=== PATIENT | male | born 1940 | race Caucasian/White ===

== ENCOUNTER 2023-11-16 10:13 | Outpatient (OUT) | payer MEDICARE, SELFPAY ==
[2023-11-16 10:51] LABS: Basophils Absolute Auto 0.1 10^3/uL (0.0-0.1); Basophils Percent Auto 0.9 % (0.2-2.0); Eosinophils Absolute Auto 0.2 10^3/uL (0.0-0.7); Eosinophils Percent Auto 3.1 % (0.9-7.0); Hematocrit 51.7 % (42.0-54.0); Hemoglobin 16.3 g/dL (14.0-18.0); Immature Granulocytes Abs Auto 0.01 10^3/uL (0.00-0.03); Immature Granulocytes Pct Auto 0.1 % (0.0-0.5); Lymphocytes Absolute Auto 1.2 10^3/uL (1.2-3.8); Lymphocytes Percent Auto 17.6 % (20.5-60.0); Mean Corpuscular HGB Conc 31.5 g/dL (29.9-35.2); Mean Corpuscular Hemoglobin 29.1 pg (25.9-34.0); Mean Corpuscular Volume 92.2 fL (80.0-94.0); Mean Platelet Volume 10.3 fL (9.5-13.5); Monocytes Absolute Auto 0.7 10^3/uL (0.3-0.8); Monocytes Percent Auto 9.7 % (1.7-12.0); Neutrophils Absolute Auto 4.6 10^3/uL (1.4-6.5); Neutrophils Percent Auto 68.6 % (43.0-75.0); Platelet Count 191 10^3/uL (150-450); Red Blood Count 5.61 10^6/uL (4.70-6.10); Red Cell Distribution Width 13.2 % (11.0-15.0); White Blood Count 6.7 10^3/uL (4.0-11.0)
[2023-11-16 11:13] LABS: Estimated Average Glucose 166 mg/dL; Glycohemoglobin A1C 7.4 % (4.5-6.2)
[2023-11-16 11:53] LABS: Alanine Aminotransferase 21 U/L (16-63); Albumin Globulin Ratio 0.8; Albumin Level 3.3 g/dL (3.4-5.0); Alkaline Phosphatase 73 U/L (46-116); Anion Gap 12.1; Aspartate Amino Transferase 17 U/L (15-37); BUN Creatinine Ratio 17.3; Bilirubin Direct 0.2 mg/dL (0.0-0.2); Bilirubin Total 1.1 mg/dL (0.2-1.0); Calcium 9.8 mg/dL (8.5-10.1); Carbon Dioxide 26.8 mmol/L (21.0-32.0); Chloride 105 mmol/L (98-107); Chol HDL Ratio 2.7; Cholesterol 128 mg/dL (<=200); Estimated GFR (African America >60 (>=60); Estimated GFR (Non-African Ame >60 (>=60); Globulin 4.1 g/dL; Glucose 162 mg/dL (74-106); HDL Cholesterol 48 mg/dL (40-60); Potassium 4.9 mmol/L (3.5-5.1); Sodium 139 mmol/L (136-145); Total Protein 7.4 g/dL (6.4-8.2); Triglycerides 115 mg/dL (<=150)
[2023-11-16 12:14] LABS: Prostate Specific Antigen Scrn 2.35 ng/mL (<=4.00)
== END 2023-11-16 10:14 | disposition home or self-care (01) ==
LOC: LAB 10:21
DX: E11.21 Type 2 diabetes mellitus with diabetic nephropathy (principal); I48.91 Unspecified atrial fibrillation; N40.0 Benign prostatic hyperplasia without lower urinary tract symptoms; R60.9 Edema, unspecified
CPT/HCPCS: 36415; 80048; 80061; 80076; 83036; 85025; G0103

== ENCOUNTER 2024-10-31 13:20 | Outpatient (OUT) | payer MEDICARE, OTHER, SELFPAY ==
--- OUTSIDE RECORDS SUMMARY | 2024-10-31 13:46 | XMS_ITS | CCD ---
Author Organization [facility] Care Team Providers Care Antisqueak Filler Name Role Phone Unavailable Primary Care Provider David holland REQUEST, NONE LISTED Admitting Unavaila ble REQUEST, NONE LISTED Attending Unavaila ble REQUEST, NONE LISTED Consulting Unavaila ble REQUEST, NONE LISTED Admitting Unavaila ble REQUEST, NONE LISTED Attending Unavaila ble CASTRO CASTRO Consulting Unavailable GLORIA, CASTRO Consulting Unavailable CASTRO CASTRO Admitting Unavailable CASTRO CASTRO Attending Unavailable Unavailable Primary Care Provider Griffin Del Real MD Primary Care Provider SEDRICK REYES Attending Unavailable GRIFFIN MOON Primary Care Unavailable SEDRICK REYES Attending Unavailable Medications Current Medications Medication Drug Class(es) Dates Sig (Normalized) Sig (Original) amLODIPine 5 mg / benazepril hydrochloride 10 mg oral capsule (6 sources) Dihydropyridine Calcium Channel Anupam, Angiotensin Converting Enzyme Inhibitor take 1 capsule by mouth once daily amLODIPine-benazepr il (LOTREL) 5-10 mg per capsule Take 1 capsule by mouth 1 (one) time each day. Active atorvastatin 40 mg oral tablet (6 sources) HMG-CoA Reductase Inhibitor take 1 tablet by mouth once daily atorvastatin (LIPITOR) 40 mg tablet Take 1 tablet (40 mg total) by mouth 1 (one) time each day. Active cholecalciferol 0.05 mg oral capsule (6 sources) Vitamin D take 1 capsule by mouth once daily cholecalciferol (VITAMIN D-3) 50 mcg (2,000 unit) capsule Take 1 capsule (2,000 Units total) by mouth 1 (one) time each day. Active metFORMIN hydrochloride 500 mg / SITagliptin 50 mg oral tablet (6 sources) Biguanide, Dipeptidyl Peptidase 4 Inhibitor take 1 tablet by mouth twice daily sitagliptin-metform in (JANUMET) 50-500 mg per tablet Take 1 tablet by mouth 2 (two) times a day. Active 24 hr metoprolol succinate 50 mg extended release oral tablet (7 sources) beta-Adrenergic Anupam Start: 08-28-2022 End: 03-17-2025 take 1 tablet by mouth once daily metoprolol succinate (TOPROL-XL) 50 mg 24 hr tablet Indications: PAC (premature atrial contraction) Take 1 tablet (50 mg total) by mouth 1 (one) time each day. Do not crush or chew. 90 each 3 03/17/2024 03/17/2025 Active Start: 10-01-2021 End: 06-14-2022 take 1 tablet by mouth once daily metoprolol succinate (TOPROL-XL) 50 mg 24 hr tablet Indications: PAC (premature atrial contraction) Take 1 tablet (50 mg total) by mouth 1 (one) time each day. Do not crush or chew. 90 each 2 03/16/2022 06/14/2022 Active multivitamin with minerals (Centrum Silver) tablet (6 sources) take 1 tablet by geo th once daily multivitamin with minerals (Centrum Silver) tablet Take 1 tablet by mouth 1 (one) time each day. Active take 1 tablet by mouth once meera y multivitamin with minerals (Centrum Silver) tablet Take 1 tablet by mouth 1 (one) time each day. 0 Active Completed/Discontinued Medications Medication Drug Class(es) Dates Sig (Normalized) Sig (Original) acetaminophen 325 mg oral tablet (6 sources) End: 03-17-2024 take 2 tablets by mouth every six hours as needed acetaminophen (TYLENOL) 325 mg tablet Take 2 tablets every 6 hours by oral route as needed. 03/17/2024 Discontinued (Duplicate order) dapagliflozin 5 mg oral tablet (2 sources) Sodium-Glucose Cotransporter 2 Inhibitor Start: 01-19-2023 End: 03-17-2024 take 1 tablet by mouth once daily Farxiga 5 mg tablet Take 1 tablet (5 mg total) by mouth 1 (one) time each day. 01/19/2023 03/17/2024 Discontinued (Duplicate order) fluticasone propionate 0.5 mg/ml topical cream (6 sources) Corticosteroid End: 03-17-2024 fluticasone propionate (CUTIVATE) 0.05 % cream 03/17/2024 Discontinued (Duplicate order) Problems Active Problems Problem Classification Problem Date Documented Date Episodic/Chronic Cancer of colon (2 sources) Malignant tumor of ascending colon; Translations: [Malignant neoplasm of ascending colon] Onset: 08-26-2022 08-26-2022 Chronic Cardiac dysrhythmias (9 sources) Paroxysmal atrial fibrillation; Translations: [Paroxysmal atrial fibrillation] Onset: 03-16-2022 Chronic Conduction disorders (11 sources) Right bundle branch block; Translations: [Unspecified right bundle-branch block] Onset: 08-21-2021 Chronic Disorders of lipid metabolism (11 sources) Mixed hyperlipidemia; Translations: [Mixed hyperlipidemia] Onset: 06-09-2021 Chronic Essential hypertension (11 sources) Essential hypertension; Translations: [Essential (primary) hypertension] Onset: 06-09-2021 Chronic Immunizations and screening for infectious disease (4 sources) Encounter for immunization; Translations: [ENCOUNTER FOR IMMUNIZATION] Onset: 07-29-2021 Episodic Osteoarthritis (3 sources) Osteoarthritis of knee; Translations: [Unilateral primary osteoarthritis, unspecified knee] Onset: 12-24-2017 03-10-2022 Chronic Residual codes; unclassified (10 sources) Obstructive sleep apnea of adult; Translations: [Obstructive sleep apnea (adult) (pediatric)] Onset: 06-09-2021 Chronic Residual codes; unclassified (1 source) Obstructive sleep apnea (adult) (pediatric); Translations: [Obstructive sleep apnea (adult) (pediatric)] Onset: 08-21-2021 Chronic Spondylosis; intervertebral disc disorders; other back problems (6 sources) Cervical spondylosis without myelopathy; Translations: [Spondylosis without myelopathy or radiculopathy, cervical region] Onset: 03-16-2017 03-10-2022 Chronic Past or Other Problems Problem Classification Problem Date Documented Da te Episodic/Chronic Malaise and fatigue (2 sources) Fatigue; Translations: [Other fatigue] Onset: 08-26-2022 08-26-2022 Episodic Other bone disease and musculoskeletal deformities (3 sources) Somatic dysfunction of upper limb; Translations: [Segmental and somatic dysfunction of upper extremity] Onset: 04-06-2018 03-10-2022 Episodic Other bone disease and musculoskeletal deformities (3 sources) Somatic dysfunction of thoracic region; Translations: [Segmental and somatic dysfunction of thoracic region] Onset: 07-21-2018 03-10-2022 Episodic Other connective tissue disease (3 sources) Biceps tendinitis; Translations: [Bicipital tendinitis, unspecified shoulder] Onset: 04-06-2018 03-10-2022 Episodic Other connective tissue disease (1 source) Muscle pain; Translations: [Myalgia, unspecified site] Onset: 08-27-2018 08-06-2023 Episodic Other lower respiratory disease (6 sources) Paralysis of diaphragm ; Translations: [Disorders of diaphragm] Onset: 06-09-2021 06-09-2021 Episodic Other nervous system disorders (3 sources) Antalgic gait; Translations: [Other abnormalities of gait and mobility] Onset: 03-16-2017 03-10-2022 Episodic Other non-traumatic joint disorders (2 sources) Pain of right shoulder joint; Translations: [Pain in right shoulder] Onset: 10-04-2018 03-10-2022 Episodic Other non-traumatic joint disorders (1 source) Shoulder joint pain; Translations: [Pain in unspecified shoulder] Onset: 10-04-2018 08-06-2023 Episodic Other skin disorders (1 source) Callosity; Translations: [Corns and callosities] Onset: 08-17-2023 08-17-2023 Episodic Spondylosis; intervertebral disc disorders; other back problems (5 sources) Spinal stenosis of lumbar region; Translations: [Spinal stenosis, lumbar region without neurogenic claudication] Onset: 04-26-2017 03-10-2022 Episodic Results Test Name Value Interpretation Reference Range [facility] ECG 12 lead ([facility])on 02-19 Sinus Rhythm -Right bundle branch block. ABNORMAL [facility] ECG 12-LEAD ([facility])on 02-19 ECG 12-LEAD ([facility]) Sinus Rhythm -Right bundle branch block. ABNORMAL Normal [facility] ECG 12-LEAD ([facility])on 07-22 ECG 12-LEAD ([facility]) Sinus Bradycardia -occasional PAC -Right bundle branch block. ABNORMAL Normal [facility] ECG 12 lead ([facility])on Sinus bradycardia -Right bundle branch block. ABNORMAL [facility] ECG 12 lead ([facility])on 02-19 [facility] Sinus Rhythm -Right bundle branch block. ABNORMAL [facility] ECG 12 lead ([facility])on Sinus rhythm with frequent PACs -Right bundle branch block. ABNORMAL Expert Test Result Ejection Fractio non 10-30-2019 Test Result Ejection Fraction 56 Normal [facility] Vital Signs Date Time Vital Sign Value Performing Clinician Palmer peralta 03-17-2024 13:04-0400 Body mass index (BMI) [Ratio] 33.93 kg/m2 Sedrick Reyes MD Work Phone: [facility] 03-17-2024 13:04-0400 Body temperature 97.5 [degF] Sedrick Reyes MD Work Phone: [facility] 03-17-2024 13:04-0400 Body weight 110.36 kg Sedrick Reyes MD Work Phone: [facility] 03-17-2024 13:04-0400 Diastolic blood pressure 73 mm[Hg] Sedrick Reyes MD Work Phone: [facility] 03-17-2024 13:04-0400 Heart rate 76 /min Sedrick Reyes MD Work Phone: [facility] 03-17-2024 13:04-0400 Systolic blood pressure 137 mm[Hg] Sedrick Reyes MD Work Phone: [facility] 01-25-2023 14:54-0400 Body height 180.3 cm Sedrick Reyes MD Work Phone: [facility] 01-25-2023 14:54-0400 Body mass index (BMI) [Ratio] 32.75 kg/m2 Sedrick Reyes MD Work Phone: [facility] 01-25-2023 14:54-0400 Body temperature 97.39 [degF] Sedrick Reyes MD Work Phone: [facility] 01-25-2023 14:54-0400 Body weight 106.5 kg Sedrick Reyes MD Work Phone: [facility] 01-25-2023 14:54-0400 Diastolic blood pressure 53 mm[Hg] Sedrick Reyes MD Work Phone: [facility] 01-25-2023 14:54-0400 Heart rate 55 /min Sedrick Reyes MD Work Phone: [facility] 01-25-2023 14:54-0400 Systolic blood pressure 114 mm[Hg] Sedrick Reyes MD Work Phone: [facility] 03-16-2022 15:11-0400 Body height 177.8 cm Sedrick Reyes MD Work Phone: [facility] 03-16-2022 15:11-0400 Body mass index (BMI) [Ratio] 36.79 kg/m2 Sedrick Reyes MD Work Phone: [facility] 03-16-2022 15:11-0400 Body weight 116.3 kg Sedrick Reyes MD Work Phone: [facility] 03-16-2022 15:11-0400 Diastolic blood pressure 69 mm[Hg] Sedrick Reyes MD Work Phone: [facility] 03-16-2022 15:11-0400 Heart rate 62 /min Sedrick Reyes MD Work Phone: [facility] 03-16-2022 15:11-0400 Systolic blood pressure 131 mm[Hg] Sedrick Reyes MD Work Phone: [facility] 08-21-2021 13:37-0500 Body height 180.3 cm Sedrick Reyes MD Work Phone: [facility] 08-21-2021 13:37-0500 Body mass index (BMI) [Ratio] 35.57 kg/m2 Sedrick Reyes MD Work Phone: [facility] 08-21-2021 13:37-0500 Body temperature 98.2 [degF] Sedrick Reyes MD Work Phone: [facility] 08-21-2021 13:37-0500 Body weight 115.67 kg Sedrick Reyes MD Work Phone: [facility] 08-21-2021 13:37-0500 Diastolic blood pressure 65 mm[Hg] Sedrick Reyes MD Work Phone: [facility] 08-21-2021 13:37-0500 Heart rate 73 /min Sedrick Reyes MD Work Phone: [facility] 08-21-2021 13:37-0500 Respiratory rate 20 /min Sedrick Reyes MD Work Phone: [facility] 08-21-2021 13:37-0500 Systolic blood pressure 140 mm[Hg] Sedrick Reyes MD Work Phone: [facility] Encounters Encounter Date Encounter Type Care Provider Facility Start: 03-17-2024 End: 03-17-2024 Office outpatient visit 25 minutes Sedrick Reyes MD Work Phone: [facility] Comment on above: RBBB (right bundle b ranch block) (Primary Dx); PAC (premature atrial contraction); Essential hypertension; Mixed hyperlipidemia; Obstructive sleep apnea syndrome in adult Start: 03-17-2024 End: 03-17-2024 Patient encounter procedure Sedrick Reyes MD Work Phone: [facility] Start: 03-17-2024 End: 03-17-2024 ambulatory GRIFFIN MOON [facility] Start: 08-18-2023 End: 08-18-2023 ambulatory SEDRICK REYES [facility] Start: 01-25-2023 End: 01-25-2023 Office outpatient visit 25 minutes Sedrick Reyes MD Work Phone: [facility] Comment on above: RBBB (right bundle b ranch block) (Primary Dx); PAC (premature atrial contraction); Essential hypertension; Mixed hyperlipidemia; Obstructive sleep apnea syndrome in adult Start: 01-25-2023 End: 01-25-2023 Patient encounter procedure Sedrick Reyes MD Work Phone: [facility] Start: 03-16-2022 End: 03-16-2022 Office outpatient visit 25 minutes Sedrick Reyes MD Work Phone: [facility] Comment on above: Essential hypertensi on (Primary Dx); PAC (premature atrial contraction); Mixed hyperlipidemia; Right bundle branch block; Obstructive sleep apnea syndrome in adult Start: 03-16-2022 End: 03-16-2022 Patient encounter procedure Sedrick Reyes MD Work Phone: [facility] Start: 10-01-2021 Orders Only Sedrick Reyes MD Work Phone: [facility] Comment on above: Premature atrial con tractions (Primary Dx) Start: 10-01-2021 End: 10-01-2021 Orders Only Sedrick Reyes MD Work Phone: [facility] Start: 08-27-2021 End: 08-27-2021 Telephone encounter Paulette Kidd RN [facility] Comment on above: faulty monitor Start: 08-21-2021 End: 08-21-2021 Office outpatient visit 25 minutes Sedrick Reyes MD Work Phone: [facility] Comment on above: Essential hypertensi on (Primary Dx); Paroxysmal atrial fibrillation (CMS/HCC); Mixed hyperlipidemia; Right bundle branch block; Obstructive sleep apnea syndrome in adult Start: 08-21-2021 End: 08-21-2021 Patient encounter procedure Sedrick Reyes MD Work Phone: [facility] Start: 07-29-2021 End: 07-30-2021 ambulatory CASTRO CASTRO Facility: Start: 11-26-2020 End: 11-27-2020 ambulatory NONE LISTED REQUEST Facility:[facility] Start: 10-28-2020 End: 10-29-2020 ambulatory NONE LISTED REQUEST Facility: Procedures Date Procedure Procedure Detail Performing Clinician Start: 03-17-2024 Ecg routine ecg w/le ast 12 lds w/i&r Sedrick Reyes MD Work Phone: Start: 01-25-2023 Ecg routine ecg w/le ast 12 lds w/i&r Sedrick Reyes MD Work Phone: Start: 03-16-2022 Ecg routine ecg w/le ast 12 lds w/i&r Sedrick Reyes MD Work Phone: Start: 08-21-2021 Ecg routine ecg w/le ast 12 lds w/i&r Sedrick Reyes MD Work Phone: Plan of Treatment Date Care Activity Detail Author Start: 03-09-2026 DTaP,Tdap,and Td Vaccines (3 - Td or Tdap) DTaP,Tdap,and Td Vaccines (3 - Td or Tdap) [facility] Start: 03-08-2026 DTaP,Tdap,and Td Vaccines (2 - Td or Tdap) DTaP,Tdap,and Td Vaccines (2 - Td or Tdap) [facility] Start: 04-14-2024 Zoster Vaccines (2 o f 2) Zoster Vaccines (2 of 2) [facility] Start: 08-18-2023 End: 08-18-2023 Patient encounter procedure 08/18/2023 Office Visit Cardiology Sedrick Reyes MD [facility] [address] [place] [address] [facility] Start: 05-21-2023 COVID-19 Vaccine ( season) COVID-19 Vaccine ( season) [facility] Start: 01-25-2023 Diabetes: Annual Ret foreign Eye Exam Diabetes: Annual Retina Eye Exam [facility] Start: 01-25-2023 Diabetes: Annual Uri ne Albumin-Creatinine Ratio (uACR) Diabetes: Annual Urine Albumin-Creatinine Ratio (uACR) [facility] Start: 01-25-2023 Diabetic foot examination Diabetes: Annual Foot Exam [facility] Start: 01-25-2023 Hemoglobin A1c measurement Diabetes: Blood Sugar Control Test (HGBA1C) [facility] Start: 08-21-2021 End: 08-21-2022 Cardiac event monitor Cardiac event monitor Cardiac Services Routine Paroxysmal atrial fibrillation (CMS/HCC) Expected: 08/21/2021, Expires: 08/21/2022 [facility] Work Phone: Comment on above: Expected: 08/21/2021 , Expires: 08/21/2022 Start: 08-20-2021 Diabetes: Annual Ret foreign Eye Exam Diabetes: Annual Retina Eye Exam [facility] Start: 08-20-2021 Diabetic foot examination Diabetes: Annual Foot Exam [facility] Start: 08-20-2021 Hemoglobin A1c measurement Diabetes: Blood Sugar Control Test (HGBA1C) [facility] Start: 08-20-2021 Urine screening for protein Diabetes: Annual Urine Protein Test (Microalbumin) [facility] Start: 06-09-2021 Hypertension/CHF/CAD Annual BMP Blood Test Hypertension/CHF/CAD Annual BMP Blood Test [facility] Start: 05-21-2021 Influenza vaccination Influenza Vacc ine (#1) [facility] Start: 10-29-2019 Adolescent depressio n screening assessment Depression Screening [facility] Start: 10-29-2019 Falls Risk Assessment Falls Risk Ass essment [facility] Start: 10-29-2019 Lipid panel Cholesterol Sc reening (Lipid Panel) [facility] Start: 10-29-2019 Medicare Annual Wellness Visit Medicare Annual Wellness Visit [facility] Start: 10-29-2019 Social Influencers o f Health Screening Social Influencers of Health Screening [facility] Start: 1999 RSV Immunization Patients 60+ Years Old (1 - 1-dose 60+ series) RSV Immunization Patients 60+ Years Old (1 - 1-dose 60+ series) [facility] Start: 12-24-1989 Zoster Vaccines (1 o f 2) Zoster Vaccines (1 of 2) [facility] Start: 12-24-1958 Zoster Vaccines (1 o f 2) Zoster Vaccines (1 of 2) [facility] Start: 1939 Diabetes: Annual GFR (Glomerular Filtration Rate) Diabetes: Annual GFR (Glomerular Filtration Rate) [facility] Immunizations Immunization Date Immunization Notes Care Provider Fa cility 09-23-2022 Influenza Quadravale nt, 0.5ml (Fluad) 65yo and older Sedrick Reyes MD Work Phone: [facility] 11-10-2021 Influenza, high-dose , quadrivalent Sedrick Reyes MD Work Phone: [facility] 11-10-2021 Pneumococcal Conjuga te 20-Valent Sedrick Reyes MD Work Phone: [facility] 07-29-2021 Moderna SARS-CoV-2 COVID-19, mRNA, LNP-S, preservative free Sedrick Reyes MD Work Phone: [facility] 11-26-2020 Moderna SARS-CoV-2 COVID-19, mRNA, LNP-S, preservative free Sedrick Reyes MD Work Phone: [facility] 10-28-2020 Moderna SARS-CoV-2 COVID-19, mRNA, LNP-S, preservative free Sedrick Reyes MD Work Phone: [facility] 08-29-2019 influenza, high dose seasonal, preservative-free Sedrick Reyes MD Work Phone: [facility] 08-29-2019 influenza virus vacc ine, unspecified formulation Sedrick Reyes MD Work Phone: [facility] 08-18-2016 influenza, seasonal, injectable Sedrick Reyes MD Work Phone: [facility] 03-09-2016 tetanus toxoid, redu kristin diphtheria toxoid, and acellular pertussis vaccine, adsorbed Sedrick Reyes MD Work Phone: [facility] 03-08-2016 tetanus toxoid, redu kristin diphtheria toxoid, and acellular pertussis vaccine, adsorbed Sedrick Reyes MD Work Phone: [facility] 11-12-2015 pneumococcal conjuga te vaccine, 7 valent Sedrick Reyes MD Work Phone: [facility] 11-12-2015 pneumococcal polysaccharide vaccine, 23 valent Sedrick Reyes MD Work Phone: [facility] Payers Date Payer Category Payer Private Health Insurance MARYLOU CORLEY [id number] 2017-Present [address] [place] [address] [id number] 2017 Private Health Insurance MARYLOU CORLEY [id number] 2017-Present [address] [place] [address] [id number] 2017 Private Health Insurance [id number] 2004 Medicare MEDICARE MEDICAR E PART A & B [id number] 2004-Present [address] [facility] [place] [address] Medicare [id number] 2004 Medicare MEDICARE MEDICAR E PART A & B [id number] 2004-Present [address] [place] [address] Medicare [id number] 2004 Medicare [id number] 1960 Self-pay 1940 Unknown [id number] 1940 Unknown [id number] Unknown [id number] Unknown [id number] Unknown [id number] Social History Date Type Detail Facility Start: 08-21-2021 End: 08-28-2022 Tobacco smoking status LAIS Never smoker [facility] Start: 08-21-2021 End: 08-28-2022 Tobacco use and exposure Never used [facility] Start: 06-09-2021 History SDOH Alcohol Comment What is your level of alcohol consumption: Occasional [facility] Start: 1940 Sex Assigned At Not on file [facility] Start: 03-06-2022 End: 01-25-2023 Exposure to SARS-CoV-2 (event) Not sure [facility] Start: 03-16-2022 Alcohol intake Lifetime non-d shannan (finding) [facility] Start: 01-25-2023 End: 03-17-2024 Alcohol intake Ex-drinker (finding) [facility] Start: 08-28-2022 Alcohol Comment speciall occasion [employer] Gender identity Not on file [facility] Medical Equipment Procedure Code Equipment Code Equipment Original Text Equi pment Identifier Dates Use as instructed [id number] Use as instructed [id number] History of Present illness Narrative 03-17-2024 Sedrick Reyes MD - 03/17/2024 1:20 PM EDT Note Date & Type Note Facility 03-17-2024 History of Presen t illness Narrative Images from the original note were not included. [facility] and Plan Mr. Powell is doing well and appears stable from a cardiac standpoint. His blood pressure today is acceptable and he appears well compensated. He will continue on his low-dose beta-anupam given PACs as detected on an event monitor in 2020. I reviewed his echocardiogram showing normal LV systolic function. He will continue on his statin as prescribed. I will see him back in the office in 6 months or sooner as needed. 1. RBBB (right bundle branch block) 2. PAC (premature atrial contraction) - metoprolol succinate (TOPROL-XL) 50 mg 24 hr tablet; Take 1 tablet (50 mg total) by mouth 1 (one) time each day. Do not crush or chew. Dispense: 90 each; Refill: 3 3. Essential hypertension - ECG 12 lead ([facility]) 4. Mixed hyperlipidemia 5. Obstructive sleep apnea syndrome in adult It is my pleasure having the opportunity to help take care of Mr. Jorge Powell. If you have any questions, please feel free to contact me. Sedrick Reyes MD 03/17/24 1:19 PM EDT [facility] [address], [address] [place] [id number] Office [phone] Chief Complaint: Routine follow-up for hypertension and hyperlipidemia HPI: Jorge Powell is an 83 year-old man with a history of right bundle-branch block, PACs as detected on event monitor, hypertension, hyperlipidemia, and sleep apnea who presents for follow-up. He is doing well and reports no interim medical events. He has not been hospitalized. He denies any chest pain, shortness of breath, dizziness, or palpitations. He has not noticed any near syncope or falls. He continues on his beta-anupam as prescribed. Cardiac Testing: Event monitor 08/2021: Sinus rhythm, frequent PACs (29%) with occasional PVCs, no evidence of atrial fibrillation/flutter Echo 10/30/2019: Normal left ventricular cavity size with mild concentric LVH, LVEF 56%, normal RV size and function, mild mitral regurgitation, mild aortic regurgitation Cardiac studies: 12 lead EKG personally reviewed 03/17/2024 showing sinus rhythm with RBBB Review of Systems: Constitutional: Denies fevers, denies chills, denies sweats, denies weight change Eye: Denies recent visual problems, denies redness, denies discharge ENMT: Denies ear pain, denies nasal congestion, denies sore throat Cardiovascular: Denies chest pain, denies palpitations, denies fainting, denies pressure, denies swelling Respiratory: Denies shortness of breath, denies cough Gastrointestinal: Denies nausea, denies vomiting, denies diarrhea, denies constipation, denies indigestion Genitourinary: Denies incontinence, denies frequency, denies urgency, denies nocturia, denies hematuria Musculoskeletal: Denies back pain, denies neck pain, denies joint pain, denies muscle pain, denies decreased range of motion Integumentary: Denies rash, denies itching, denies abrasions Neurologic: Denies numbness, denies tingling, denies headaches Psychiatric: Denies anxiety, denies depression Endocrine: Denies excessive thirst, denies excessive hunger Hematologic/Lymphatic: Denies bruising tendency, denies swollen lymph glands Allergic and Immunologic: Denies pruritus, denies swelling Past Medical History: Diagnosis Date Abdominal aortic aneurysm (AAA) (CMS/HCC) Arrhythmia Right bundle branch block; 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 Edema Trace lower extremity edema; Hx of echocardiogram 05/05/2015 Transthoracic Echocardiogram, EF 75%, left atrium mildly dilated, left ventricular hypertrophy, left ventircular diastolic dysfunction, mild aortic root dilation; Hyperlipidemia Hypertension Obstructive sleep apnea on CPAP Prediabetes Past Surgical History: Procedure Laterality Date ADENOIDECTOMY CARDIAC SURGERY Bilateral w/iol 1 stage HERNIA REPAIR Right Inguinal HERNIA REPAIR Right w/ mesh, inguinal herniorrhaphy with reision surgery requiring mesh TONSILLECTOMY TOTAL KNEE ARTHROPLASTY Right 10/20/2011 due to degenerative joint disease; TOTAL KNEE ARTHROPLASTY Left 06/16/2011 VASCULAR SURGERY 09/02/2010 AAA repair in [place] Family History Problem Relation Name Age of Onset Other (myocardial infarction) Mother Other (malignant tumor of lung) Father Other (smoker) Father Other (family history of cancer) Sister Social History Socioeconomic History Marital status: Spouse name: Not on file Number of children: Not on file Years of education: Not on file Highest education level: Not on file Occupational History Not on file Tobacco Use Smoking status: Never Smokeless tobacco: Never Vaping Use Vaping status: Never Used Substance and Sexual Activity Alcohol use: Not Currently Comment: speciall occasion Drug use: Never Comment: Do you use illicit drugs: No, Which illicit or recreational drugs have you used: None Sexual activity: Defer Other Topics Concern Not on file Social History Narrative What is your level of alcohol consumption: Occasional I have personally reviewed the patient's past medical, surgical and family history and made changes as appropriate. No Known Allergies Home Medications acetaminophen (TYLENOL) 325 mg tablet Take 2 tablets every 6 hours by oral route as needed. amLODIPine-benazepril (LOTREL) 5-10 mg per capsule Take 1 capsule by mouth 1 (one) time each day. atorvastatin (LIPITOR) 40 mg tablet Take 40 mg by mouth 1 (one) time each day. cholecalciferol (Vitamin D3) 50 mcg (2,000 unit) capsule Take 2,000 Units by mouth 1 (one) time each day. fluticasone propionate (CUTIVATE) 0.05 % cream glucose blood test strip Use as instructed lancets (Accu-Chek Fastclix Lancet Drum) lancets Use as instructed multivitamin with minerals (Centrum Silver) tablet Take 1 tablet by mouth 1 (one) time each day. sitagliptin-metformin (JANUMET) 50-500 mg per tablet Take 1 tablet by mouth 2 (two) times a day. Physical Exam Visit Vitals BP 137/73 (BP Location: Left arm, Patient Position: Sitting, BP Cuff Size: Adult) Pulse 76 Temp 36.4 C (97.5 F) (Temporal) Wt 110 kg (243 lb 4.8 oz) BMI 33.93 kg/m Smoking Status Never BSA 2.29 m Wt Readings from Last 3 Encounters: 03/17/24 110 kg (243 lb 4.8 oz) 08/18/23 108 kg (237 lb) 01/25/23 107 kg (234 lb 12.8 oz) Body mass index is 33.93 kg/m . Constitutional: No acute distress, well nourished, appears stated age HEENT: Normocephalic, atraumatic, hearing grossly normal, no nasal discharge Neck: Supple w/ no adenopathy, masses, or thyroid enlargement. Trachea midline. Heart: normal rate, regular rhythm, no murmurs, normal S1/S2, no rub, no gallop, no S3/S4, no JVD Lungs: Lungs clear to auscultation bilaterally, no wheezes, rales, or rhonchi Abdomen: soft and non-tender, no masses or organomegaly, bowel sounds present M/S: Gait not assessed, muscular strength and tone normal Extremities: no clubbing, cyanosis, or edema Neuro: Alert and oriented to person/place/time. No focal neurologic deficits. CN II-XII grossly intact. Skin: Warm, dry, no rashes or lesions Psych: Appropriate, calm, cooperative; no evidence of impaired judgment Labs: No results found for: WBC , HGB , HCT , MCV , PLT , GLUCOSE , CALCIUM , NA , K , CO2 , CL , BUN , CREATININE , ALT , AST , GGT , ALKPHOS , BILITOT , TSH , INR , PTT , HGBA1C , CHOL , TRIG , HDL , LDLCALC , CKTOTAL , TROPONINI , HSTROPI , BNP \LAST BMP: No results found for: GLUCOSE , CALCIUM , NA , K , CO2 , CL , BUN , CREATININE LASTCBC: No results found for: WBC , HGB , HCT , MCV , PLT No results for input(s): HGBA1C in the last 72 hours. No results for input(s): CHOL , HDL , LDL , TRIG in the last 72 hours. No lab exists for component: CHOLHDLRAT , LDLHDLRAT documented in this encounter [facility] History of Present illness Narrative 01-25-2023 Sedrick Reyes MD - 01/25/2023 3:20 PM EDT Note Date & Type Note Facility 01-25-2023 History of Presen t illness Narrative Images from the original note were not included. [facility]ulum Coordinator [facility] Assessment and Plan Mr. Powell is doing well and appears stable from a cardiac standpoint. His blood pressure today is excellent and he appears well compensated on exam. He will continue on his current cardiac medications including his metoprolol succinate, amlodipine/benazepril, and atorvastatin. His heart rates are on the low side but acceptable given his beta-anupam use. I will plan to see him back in the office in 6 months or sooner as needed. 1. RBBB (right bundle branch block) - ECG 12 lead ([facility]) 2. PAC (premature atrial contraction) - metoprolol succinate (TOPROL-XL) 50 mg 24 hr tablet; Take 1 tablet (50 mg total) by mouth 1 (one) time each day. Do not crush or chew. Dispense: 90 each; Refill: 3 3. Essential hypertension 4. Mixed hyperlipidemia 5. Obstructive sleep apnea syndrome in adult It is my pleasure having the opportunity to help take care of Mr. Jorge Powell. If you have any questions, please feel free to contact me. Sedrick Reyes MD 01/25/23 3:06 PM EDT [facility] [address], [address] [place] [address] Office [phone] Chief Complaint: Routine follow-up for hypertension and hyperlipidemia HPI: Jorge Powell is an 82 year-old man with a history of right bundle-branch block, PACs as detected on event monitor, hypertension, hyperlipidemia, and sleep apnea who presents for follow-up. He is doing well today and is accompanied by his who is also my patient. He reports no interim medical events. He continues to be active and enjoys mowing the grass on his tractor. He was recently started on Farxiga. He reports no chest pain, exertional dyspnea, or lower extremity edema. He denies any dizziness or near syncope. His twelve-lead EKG was reviewed and shows sinus bradycardia with an old right bundle branch block. Cardiac Testing: Event monitor 08/2021: Sinus rhythm, frequent PACs (29%) with occasional PVCs, no evidence of atrial fibrillation/flutter Echo 10/30/2019: Normal left ventricular cavity size with mild concentric LVH, LVEF 56%, normal RV size and function, mild mitral regurgitation, mild aortic regurgitation Cardiac studies: 12 lead EKG personally reviewed 01/25/2023 showing sinus bradycardia with RBBB Review of Systems: Constitutional: Denies fevers, denies chills, denies sweats, denies weight change Eye: Denies recent visual problems, denies redness, denies discharge ENMT: Denies ear pain, denies nasal congestion, denies sore throat Cardiovascular: Denies chest pain, denies palpitations, denies fainting, denies pressure, denies swelling Respiratory: Denies shortness of breath, denies cough Gastrointestinal: Denies nausea, denies vomiting, denies diarrhea, denies constipation, denies indigestion Genitourinary: Denies incontinence, denies frequency, denies urgency, denies nocturia, denies hematuria Musculoskeletal: Denies back pain, denies neck pain, denies joint pain, denies muscle pain, denies decreased range of motion Integumentary: Denies rash, denies itching, denies abrasions Neurologic: Denies numbness, denies tingling, denies headaches Psychiatric: Denies anxiety, denies depression Endocrine: Denies excessive thirst, denies excessive hunger Hematologic/Lymphatic: Denies bruising tendency, denies swollen lymph glands Allergic and Immunologic: Denies pruritus, denies swelling Past Medical History: Diagnosis Date Abdominal aortic aneurysm (AAA) (CMS/HCC) Arrhythmia Right bundle branch block; 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 Edema Trace lower extremity edema; Hx of echocardiogram 05/05/2015 Transthoracic Echocardiogram, EF 75%, left atrium mildly dilated, left ventricular hypertrophy, left ventircular diastolic dysfunction, mild aortic root dilation; Hyperlipidemia Hypertension Obstructive sleep apnea on CPAP Prediabetes Past Surgical History: Procedure Laterality Date ADENOIDECTOMY CARDIAC SURGERY Bilateral w/iol 1 stage HERNIA REPAIR Right Inguinal HERNIA REPAIR Right w/ mesh, inguinal herniorrhaphy with reision surgery requiring mesh TONSILLECTOMY TOTAL KNEE ARTHROPLASTY Right 10/20/2011 due to degenerative joint disease; TOTAL KNEE ARTHROPLASTY Left 06/16/2011 VASCULAR SURGERY 09/02/2010 AAA repair in [place] Family History Problem Relation Name Age of Onset Other (myocardial infarction) Mother Other (malignant tumor of lung) Father Other (smoker) Father Other (family history of cancer) Sister Social History Socioeconomic History Marital status: Spouse name: Not on file Number of children: Not on file Years of education: Not on file Highest education level: Not on file Occupational History Not on file Tobacco Use Smoking status: Never Smokeless tobacco: Never Vaping Use Vaping Use: Not on file Substance and Sexual Activity Alcohol use: Not Currently Comment: speciall occasion Drug use: Never Comment: Do you use illicit drugs: No, Which illicit or recreational drugs have you used: None Sexual activity: Defer Other Topics Concern Not on file Social History Narrative What is your level of alcohol consumption: Occasional I have personally reviewed the patient's past medical, surgical and family history and made changes as appropriate. No Known Allergies Home Medications acetaminophen (TYLENOL) 325 mg tablet Take 2 tablets every 6 hours by oral route as needed. amLODIPine-benazepril (LOTREL) 5-10 mg per capsule Take 1 capsule by mouth 1 (one) time each day. atorvastatin (LIPITOR) 40 mg tablet Take 40 mg by mouth 1 (one) time each day. cholecalciferol (Vitamin D3) 50 mcg (2,000 unit) capsule Take 2,000 Units by mouth 1 (one) time each day. fluticasone propionate (CUTIVATE) 0.05 % cream glucose blood test strip Use as instructed lancets (Accu-Chek Fastclix Lancet Drum) lancets Use as instructed multivitamin with minerals (Centrum Silver) tablet Take 1 tablet by mouth 1 (one) time each day. sitagliptin-metformin (JANUMET) 50-500 mg per tablet Take 1 tablet by mouth 2 (two) times a day. Physical Exam Visit Vitals BP 114/53 (BP Location: Left arm, Patient Position: Sitting, BP Cuff Size: Adult) Pulse 55 Temp 36.3 C (97.4 F) (Temporal) Ht 1.803 m (71 ) Wt 107 kg (234 lb 12.8 oz) BMI 32.75 kg/m Smoking Status Never BSA 2.26 m Wt Readings from Last 3 Encounters: 01/25/23 107 kg (234 lb 12.8 oz) 08/28/22 112 kg (248 lb) 03/16/22 116 kg (256 lb 6.4 oz) Body mass index is 32.75 kg/m . Constitutional: No acute distress, well nourished, appears stated age HEENT: Normocephalic, atraumatic, hearing grossly normal, no nasal discharge Neck: Supple w/ no adenopathy, masses, or thyroid enlargement. Trachea midline. Heart: normal rate, regular rhythm, no murmurs, normal S1/S2, no rub, no gallop, no S3/S4, no JVD Lungs: Lungs clear to auscultation bilaterally, no wheezes, rales, or rhonchi Abdomen: soft and non-tender, no masses or organomegaly, bowel sounds present M/S: Gait not assessed, muscular strength and tone normal Extremities: no clubbing, cyanosis, or edema Neuro: Alert and oriented to person/place/time. No focal neurologic deficits. CN II-XII grossly intact. Skin: Warm, dry, no rashes or lesions Psych: Appropriate, calm, cooperative; no evidence of impaired judgment Labs: No results found for: WBC, HGB, HCT, MCV, PLT, GLUCOSE, CALCIUM, NA, K, CO2, CL, BUN, CREATININE, ALT, AST, GGT, ALKPHOS, BILITOT, TSH, INR, PTT, HGBA1C, CHOL, TRIG, HDL, LDLCALC, CKTOTAL, TROPONINI, HSTROPI, BNP \LAST BMP: No results found for: GLUCOSE, CALCIUM, NA, K, CO2, CL, BUN, CREATININE LASTCBC: No results found for: WBC, HGB, HCT, MCV, PLT No results for input(s): HGBA1C in the last 72 hours. No results for input(s): CHOL, HDL, LDL, TRIG in the last 72 hours. No lab exists for component: CHOLHDLRAT, LDLHDLRAT documented in this encounter [facility] History of Present illness Narrative 03-16-2022 Sedirck Reyes MD - 03/16/2022 3:40 PM EDT Note Date & Type Note Facility 03-16-2022 History of Presen t illness Narrative Images from the original note were not included. [facility]riculum Coordinator [facility] Assessment and Plan Mr. Powell is doing well and appears stable from a cardiac standpoint. His blood pressure today is acceptable and he appears well compensated on exam. He will continue on his low-dose beta-anupam due to frequent PACs. He will also continue on his amlodipine/benazepril and statin. We reviewed the results of his last echocardiogram showing normal LV systolic function. I will plan to see him back in the office in 6 months or sooner as needed. 1. Essential hypertension - ECG 12 lead ([facility]) 2. PAC (premature atrial contraction) - metoprolol succinate (TOPROL-XL) 50 mg 24 hr tablet; Take 1 tablet (50 mg total) by mouth 1 (one) time each day. Do not crush or chew. Dispense: 90 each; Refill: 2 3. Mixed hyperlipidemia 4. Right bundle branch block 5. Obstructive sleep apnea syndrome in adult It is my pleasure having the opportunity to help take care of Mr. Jorge Powlel. If you have any questions, please feel free to contact me. Sedrick Reyes MD 03/16/22 3:30 PM EDT [facility] [address], [address] [place] [address] Office [phone] Chief Complaint: Routine follow-up for hypertension and hyperlipidemia HPI: Jorge Powell is an 81 year-old man with a history of right bundle-branch block, PACs as detected on event monitor, hypertension, hyperlipidemia, and sleep apnea who presents for follow-up. After last visit, he wore an event monitor due to concern about frequent PACs versus atrial fibrillation on his twelve-lead EKG. His event monitor showed sinus rhythm with frequent PACs. I placed him on Toprol-XL 50 mg daily and he has done well with this. He denies experiencing any skipped beats or palpitations. He reports no chest pain, exertional dyspnea, or lower extremity edema. He continues to be active. Cardiac Testing: Event monitor 08/2021: Sinus rhythm, frequent PACs (29%) with occasional PVCs, no evidence of atrial fibrillation/flutter Echo 10/30/2019: Normal left ventricular cavity size with mild concentric LVH, LVEF 56%, normal RV size and function, mild mitral regurgitation, mild aortic regurgitation Cardiac studies: 12 lead EKG personally reviewed 03/16/2022 showing sinus rhythm with RBBB Review of Systems: Constitutional: Denies fevers, denies chills, denies sweats, denies weight change Eye: Denies recent visual problems, denies redness, denies discharge ENMT: Denies ear pain, denies nasal congestion, denies sore throat Cardiovascular: Denies chest pain, denies palpitations, denies fainting, denies pressure, denies swelling Respiratory: Denies shortness of breath, denies cough Gastrointestinal: Denies nausea, denies vomiting, denies diarrhea, denies constipation, denies indigestion Genitourinary: Denies incontinence, denies frequency, denies urgency, denies nocturia, denies hematuria Musculoskeletal: Denies back pain, denies neck pain, denies joint pain, denies muscle pain, denies decreased range of motion Integumentary: Denies rash, denies itching, denies abrasions Neurologic: Denies numbness, denies tingling, denies headaches Psychiatric: Denies anxiety, denies depression Endocrine: Denies excessive thirst, denies excessive hunger Hematologic/Lymphatic: Denies bruising tendency, denies swollen lymph glands Allergic and Immunologic: Denies pruritus, denies swelling Past Medical History: Diagnosis Date Abdominal aortic aneurysm (AAA) (CMS/HCC) Arrhythmia Right bundle branch block; 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 Edema Trace lower extremity edema; Hx of echocardiogram 05/05/2015 Transthoracic Echocardiogram, EF 75%, left atrium mildly dilated, left ventricular hypertrophy, left ventircular diastolic dysfunction, mild aortic root dilation; Hyperlipidemia Hypertension Obstructive sleep apnea on CPAP Prediabetes Past Surgical History: Procedure Laterality Date ADENOIDECTOMY CARDIAC SURGERY Bilateral w/iol 1 stage HERNIA REPAIR Right Inguinal HERNIA REPAIR Right w/ mesh, inguinal herniorrhaphy with reision surgery requiring mesh TONSILLECTOMY TOTAL KNEE ARTHROPLASTY Right 10/20/2011 due to degenerative joint disease; TOTAL KNEE ARTHROPLASTY Left 06/16/2011 VASCULAR SURGERY 09/02/2010 AAA repair in [place] Family History Problem Relation Name Age of Onset Other (myocardial infarction) Mother Other (malignant tumor of lung) Father Other (smoker) Father Other (family history of cancer) Sister Social History Socioeconomic History Marital status: Spouse name: Not on file Number of children: Not on file Years of education: Not on file Highest education level: Not on file Occupational History Not on file Tobacco Use Smoking status: Never Smoker Smokeless tobacco: Never Used Vaping Use Vaping Use: Not on file Substance and Sexual Activity Alcohol use: Never Comment: What is your level of alcohol consumption: Occasional Drug use: Never Comment: Do you use illicit drugs: No, Which illicit or recreational drugs have you used: None Sexual activity: Not on file Other Topics Concern Not on file Social History Narrative What is your level of alcohol consumption: Occasional I have personally reviewed the patient's past medical, surgical and family history and made changes as appropriate. No Known Allergies Home Medications acetaminophen (TYLENOL) 325 mg tablet Take 2 tablets every 6 hours by oral route as needed. amLODIPine-benazepril (LOTREL) 5-10 mg per capsule Take 1 capsule by mouth 1 (one) time each day. atorvastatin (LIPITOR) 40 mg tablet Take 40 mg by mouth 1 (one) time each day. cholecalciferol (Vitamin D3) 50 mcg (2,000 unit) capsule Take 2,000 Units by mouth 1 (one) time each day. fluticasone propionate (CUTIVATE) 0.05 % cream glucose blood test strip Use as instructed lancets (Accu-Chek Fastclix Lancet Drum) lancets Use as instructed multivitamin with minerals (Centrum Silver) tablet Take 1 tablet by mouth 1 (one) time each day. sitagliptin-metformin (JANUMET) 50-500 mg per tablet Take 1 tablet by mouth 2 (two) times a day. Physical Exam Visit Vitals BP 131/69 (BP Location: Left arm) Pulse 62 Ht 1.778 m (70 ) Wt 116 kg (256 lb 6.4 oz) BMI 36.79 kg/m Smoking Status Never Smoker BSA 2.32 m Wt Readings from Last 3 Encounters: 03/16/22 116 kg (256 lb 6.4 oz) 08/21/21 116 kg (255 lb) 02/04/21 118 kg (261 lb 3.2 oz) Body mass index is 36.79 kg/m . Constitutional: No acute distress, well nourished, appears stated age HEENT: Normocephalic, atraumatic, hearing grossly normal, no nasal discharge Neck: Supple w/ no adenopathy, masses, or thyroid enlargement. Trachea midline. Heart: normal rate, regular rhythm, no murmurs, normal S1/S2, no rub, no gallop, no S3/S4, no JVD Lungs: Lungs clear to auscultation bilaterally, no wheezes, rales, or rhonchi Abdomen: soft and non-tender, no masses or organomegaly, bowel sounds present M/S: Gait not assessed, muscular strength and tone normal Extremities: no clubbing, cyanosis, or edema Neuro: Alert and oriented to person/place/time. No focal neurologic deficits. CN II-XII grossly intact. Skin: Warm, dry, no rashes or lesions Psych: Appropriate, calm, cooperative; no evidence of impaired judgment Labs: No results found for: WBC, HGB, HCT, MCV, PLT, GLUCOSE, CALCIUM, NA, K, CO2, CL, BUN, CREATININE, ALT, AST, GGT, ALKPHOS, BILITOT, TSH, INR, PTT, HGBA1C, CHOL, TRIG, HDL, LDLCALC, CKTOTAL, TROPONINI, HSTROPI, BNP \LAST BMP: No results found for: GLUCOSE, CALCIUM, NA, K, CO2, CL, BUN, CREATININE LASTCBC: No results found for: WBC, HGB, HCT, MCV, PLT No results for input(s): HGBA1C in the last 72 hours. No results for input(s): CHOL, HDL, LDL, TRIG in the last 72 hours. No lab exists for component: CHOLHDLRAT, LDLHDLRAT documented in this encounter [facility] History of Present illness Narrative 08-27-2021 Paulette Kidd RN - 08/27/2021 11:34 AM EST Note Date & Type Note Facility 08-27-2021 History of Presen t illness Narrative Per first monitor did not work I sent an email to [email or web address] to send another one documented in this encounter [facility] History of Present illness Narrative 08-21-2021 Sedrick Reyes MD - 08/21/2021 2:10 PM EST Note Date & Type Note Facility 08-21-2021 History of Presen t illness Narrative Images from the original note were not included. [facility]riculum Coordinator [facility] Assessment and Plan Jorge is doing well and appears stable from a cardiac standpoint. His blood pressure today is acceptable and he appears well compensated on exam with no signs of volume overload. His twelve-lead EKG shows frequent PACs but I cannot definitively rule out underlying atrial fibrillation. I have therefore arranged for 2-week event monitor for further evaluation. He will continue on his current antihypertensive therapy as well as his statin. I will communicate the results of his event monitor and will plan to see him back in the office in 6 months. 1. Paroxysmal atrial fibrillation (CMS/HCC) - Cardiac event monitor; Future 2. Essential hypertension - ECG 12 lead ([facility]) 3. Mixed hyperlipidemia 4. Right bundle branch block 5. Obstructive sleep apnea syndrome in adult It is my pleasure having the opportunity to help take care of . Jorge Powell. If you have any questions, please feel free to contact me. Sedrick Reyes MD 08/21/21 2:00 PM EST [facility] [address], [address] [place] [address] Office [phone] Chief Complaint: Routine follow-up for hypertension hyperlipidemia HPI: Jorge Powell is an 80 year-old man with a history of right bundle-branch block, hypertension, hyperlipidemia, and sleep apnea who presents for follow-up. He is doing well today and has no complaints. He has not experienced any chest pain, exertional dyspnea, lower extremity edema, or orthopnea. He reports no palpitations or skipped beats. He continues on amlodipine and benazepril for antihypertensive therapy as well as his statin. I reviewed his twelve-lead EKG today. His EKG shows what appears to be sinus rhythm with frequent PACs as well as his old right bundle branch block. However, I cannot definitively rule out underlying atrial fibrillation. Cardiac Testing: Echo 10/30/2019: Normal left ventricular cavity size with mild concentric LVH, LVEF 56%, normal RV size and function, mild mitral regurgitation, mild aortic regurgitation Cardiac studies: 12 lead EKG personally reviewed 08/21/2021 showing sinus rhythm with frequent PACs vs. Underlying a-fib Review of Systems: Constitutional: Denies fevers, denies chills, denies sweats, denies weight change Eye: Denies recent visual problems, denies redness, denies discharge ENMT: Denies ear pain, denies nasal congestion, denies sore throat Cardiovascular: Denies chest pain, denies palpitations, denies fainting, denies pressure, denies swelling Respiratory: Denies shortness of breath, denies cough Gastrointestinal: Denies nausea, denies vomiting, denies diarrhea, denies constipation, denies indigestion Genitourinary: Denies incontinence, denies frequency, denies urgency, denies nocturia, denies hematuria Musculoskeletal: Denies back pain, denies neck pain, denies joint pain, denies muscle pain, denies decreased range of motion Integumentary: Denies rash, denies itching, denies abrasions Neurologic: Denies numbness, denies tingling, denies headaches Psychiatric: Denies anxiety, denies depression Endocrine: Denies excessive thirst, denies excessive hunger Hematologic/Lymphatic: Denies bruising tendency, denies swollen lymph glands Allergic and Immunologic: Denies pruritus, denies swelling Past Medical History: Diagnosis Date Abdominal aortic aneurysm (AAA) (CMS/HCC) Arrhythmia Right bundle branch block; 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 Edema Trace lower extremity edema; Hx of echocardiogram 05/05/2015 Transthoracic Echocardiogram, EF 75%, left atrium mildly dilated, left ventricular hypertrophy, left ventircular diastolic dysfunction, mild aortic root dilation; Hyperlipidemia Hypertension Obstructive sleep apnea on CPAP Prediabetes Past Surgical History: Procedure Laterality Date ADENOIDECTOMY CARDIAC SURGERY Bilateral w/iol 1 stage HERNIA REPAIR Right Inguinal HERNIA REPAIR Right w/ mesh, inguinal herniorrhaphy with reision surgery requiring mesh TONSILLECTOMY TOTAL KNEE ARTHROPLASTY Right 10/20/2011 due to degenerative joint disease; TOTAL KNEE ARTHROPLASTY Left 06/16/2011 VASCULAR SURGERY 09/02/2010 AAA repair in [place] Family History Problem Relation Name Age of Onset Other (myocardial infarction) Mother Other (malignant tumor of lung) Father Other (smoker) Father Other (family history of cancer) Sister Social History Socioeconomic History Marital status: Spouse name: Not on file Number of children: Not on file Years of education: Not on file Highest education level: Not on file Occupational History Not on file Tobacco Use Smoking status: Never Smoker Smokeless tobacco: Never Used Substance and Sexual Activity Alcohol use: Not on file Comment: What is your level of alcohol consumption: Occasional Drug use: Not on file Comment: Do you use illicit drugs: No, Which illicit or recreational drugs have you used: None Sexual activity: Not on file Other Topics Concern Not on file Social History Narrative What is your level of alcohol consumption: Occasional I have personally reviewed the patient's past medical, surgical and family history and made changes as appropriate. No Known Allergies Home Medications acetaminophen (TYLENOL) 325 mg tablet Take 2 tablets every 6 hours by oral route as needed. amLODIPine-benazepril (LOTREL) 5-10 mg per capsule Take 1 capsule by mouth 1 (one) time each day. atorvastatin (LIPITOR) 40 mg tablet Take 40 mg by mouth 1 (one) time each day. cholecalciferol (Vitamin D3) 50 mcg (2,000 unit) capsule Take 2,000 Units by mouth 1 (one) time each day. fluticasone propionate (CUTIVATE) 0.05 % cream glucose blood test strip Use as instructed lancets (Accu-Chek Fastclix Lancet Drum) lancets Use as instructed multivitamin with minerals (Centrum Silver) tablet Take 1 tablet by mouth 1 (one) time each day. sitagliptin-metformin (JANUMET) 50-500 mg per tablet Take 1 tablet by mouth 2 (two) times a day. Physical Exam Visit Vitals BP 140/65 (BP Location: Left arm, Patient Position: Sitting) Pulse 73 Temp 36.8 C (98.2 F) Resp 20 Ht 1.803 m (71 ) Wt 116 kg (255 lb) BMI 35.57 kg/m Smoking Status Never Smoker BSA 2.34 m Wt Readings from Last 3 Encounters: 08/21/21 116 kg (255 lb) 02/04/21 118 kg (261 lb 3.2 oz) 06/24/20 120 kg (264 lb 15.9 oz) Body mass index is 35.57 kg/m . Constitutional: No acute distress, well nourished, appears stated age HEENT: Normocephalic, atraumatic, hearing grossly normal, no nasal discharge Neck: Supple w/ no adenopathy, masses, or thyroid enlargement. Trachea midline. Heart: normal rate, regular rhythm, no murmurs, normal S1/S2, no rub, no gallop, no S3/S4, no JVD Lungs: Lungs clear to auscultation bilaterally, no wheezes, rales, or rhonchi Abdomen: soft and non-tender, no masses or organomegaly, bowel sounds present M/S: Gait not assessed, muscular strength and tone normal Extremities: no clubbing, cyanosis, or edema Neuro: Alert and oriented to person/place/time. No focal neurologic deficits. CN II-XII grossly intact. Skin: Warm, dry, no rashes or lesions Psych: Appropriate, calm, cooperative; no evidence of impaired judgment Labs: No results found for: WBC, HGB, HCT, MCV, PLT, GLUCOSE, CALCIUM, NA, K, CO2, CL, BUN, CREATININE, ALT, AST, GGT, ALKPHOS, BILITOT, TSH, INR, PTT, HGBA1C, CHOL, TRIG, HDL, LDLCALC, CKTOTAL, TROPONINI, HSTROPI, BNP \LAST BMP: No results found for: GLUCOSE, CALCIUM, NA, K, CO2, CL, BUN, CREATININE LASTCBC: No results found for: WBC, HGB, HCT, MCV, PLT No results for input(s): HGBA1C in the last 72 hours. No results for input(s): CHOL, HDL, LDL, TRIG in the last 72 hours. No lab exists for component: CHOLHDLRAT, LDLHDLRAT documented in this encounter [facility] note Note Date & Type Note Facility Evaluation note Diagnosis Essential hypertension- Primary Unspecified essential hypertension Paroxysmal atrial fibrillation (CMS/HCC) Atrial fibrillation Mixed hyperlipidemia Right bundle branch block Obstructive sleep apnea syndrome in adult documented in this encounter [facility] Evaluation note Note Date & Type Note Facility Evaluation note Diagnosis Premature atrial contractions- Primary Supraventricular premature beats documented in this encounter [facility] note Note Date & Type Note Facility Evaluation note Diagnosis Essential hypertension- Primary Unspecified essential hypertension PAC (premature atrial contraction) Supraventricular premature beats Mixed hyperlipidemia Right bundle branch block Obstructive sleep apnea syndrome in adult documented in this encounter [facility] note Note Date & Type Note Facility Evaluation note Diagnosis RBBB (right bundle branch block)- Primary Right bundle branch block PAC (premature atrial contraction) Supraventricular premature beats Essential hypertension Unspecified essential hypertension Mixed hyperlipidemia Obstructive sleep apnea syndrome in adult documented in this encounter [facility] Evaluation note Note Date & Type Note Facility Evaluation note Diagnosis RBBB (right bundle branch block)- Primary Right bundle branch block PAC (premature atrial contraction) Supraventricular premature beats Essential hypertension Unspecified essential hypertension Mixed hyperlipidemia Obstructive sleep apnea syndrome in adult documented in this encounter [facility] Summary Purpose Family History No Family History Records FoundNo Family History Records FoundNo Family History Records Found Advance Directives No Advanced Directives Records FoundDocuments on File Type Date 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 Power of Procurement Specialist Documents on File Type Date 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 Power of Procurement Specialist Reason for Referral Specialty Diagnoses / Procedures Referred By Contac t Referred To Contact Cardiology Diagnoses Paroxysmal atrial fibrillation (CMS/HCC) Procedures Cardiac event monitor [place] ECG EXTERNAL < 48 HOURS RECORDING [place] ECG EXTERNAL < 48 HOURS SCANNING ANALYSIS W/REPORT [place] ECG EXTERNAL < 48 HOURS CONTINUOUS RHYTHM RECORDING & STORAGE REVIEW & INTERPRETATION BY A PHYSICIAN/OTHER QUALIFIED HEALTH SUPERVISOR TUMBLERS Sedrick Reyes MD [address] [facility] [address] [place] [address] Referral ID Status Reason Start Date Expiration Date V isits Requested Visits Authorized [id number] Authorized 08/21/2021 02/17/2022 1 1 Additional Source Comments (unrecognized sect ion and content) No Status Records FoundNo Status Records FoundNo Status Records Found INFORMATION SOURCE (unrecogn ized section and content) DATE CREATED AUTHOR 10/31/2019 [facility] DATE CREATED AUTHOR AUTHOR'S ORGANIZ ATION 08/25/2021 [facility] DATE CREATED AUTHOR AUTHOR'S ORGANIZ ATION 03/19/2024 [facility] Reason for Visit (unrecogniz ed section and content) Reason Onset Date Comments faulty monitor 08/27/2021 Reason Comments Hypertension Irregular Heart Beat Reason Comments Follow-up 6 month follow-HTN Reason Comments 6mth f/u Ordered Prescriptions (unrec ognized section and content) Prescription Sig Dispensed Refills Start Date End Da te metoprolol succinate (TOPROL-XL) 50 mg 24 hr tabletIndications:Prematur e atrial contractions Take 1 tablet (50 mg total) by mouth 1 (one) time each day. Do not crush or chew. 90 each 2 10/01/2021 12/30/2021 Prescription Sig Dispensed Refills Start Date End Da te metoprolol succinate (TOPROL-XL) 50 mg 24 hr tabletIndications:PAC (premature atrial contraction) Take 1 tablet (50 mg total) by mouth 1 (one) time each day. Do not crush or chew. 90 each 2 03/16/2022 06/14/2022 Prescription Sig Dispensed Refills Start Date End Da te metoprolol succinate (TOPROL-XL) 50 mg 24 hr tabletIndications:PAC (premature atrial contraction) Take 1 tablet (50 mg total) by mouth 1 (one) time each day. Do not crush or chew. 90 each 3 01/25/2023 01/25/2024 Prescription Sig Dispensed Refills Start Date End Da te metoprolol succinate (TOPROL-XL) 50 mg 24 hr tabletIndications:PAC (premature atrial contraction) Take 1 tablet (50 mg total) by mouth 1 (one) time each day. Do not crush or chew. 90 each 3 03/17/2024 03/17/2025 Care Teams (unrecognized sec tion and content) [employer] Relationship Specialty Start Date End Date Griffin Moon MD [address] [place] [id number] PCP - General Family Medicine 03/17/24 FOR RECORDS PERTAINING TO PATIENTS WHO ARE OR HAVE BEEN ENROLLED IN A CHEMICAL DEPENDENCY/SUBSTANCEABUSE PROGRAM, SOME INFORMATION MAY BE OMITTED. This clinical summary was aggregated from multiple sources. Caution should be exercised in using it in the provision of clinical care. This summary normalizes information from multiple sources, and as a consequence, information in this document may materially change the coding, format and clinical context of patient data. In addition, data may be omitted in some cases. CLINICAL DECISIONS SHOULD BE BASED ON THE PRIMARY CLINICAL RECORDS. [employer] provides no warranty or guarantee of the accuracy or completeness of information in this document.
[2024-10-31 13:58] LABS: Estimated Average Glucose 197 mg/dL; Glycohemoglobin A1C 8.5 % (4.5-6.2)
[2024-10-31 14:44] LABS: Glucose 167 mg/dL (74-106)
== END 2024-10-31 13:21 | disposition home or self-care (01) ==
LOC: LAB 13:24
DX: E11.21 Type 2 diabetes mellitus with diabetic nephropathy (principal)
CPT/HCPCS: 36415; 82947; 83036

== ENCOUNTER 2024-11-27 10:28 | Observation (INO) | payer MEDICARE, SELFPAY ==
[2024-11-27] VITALS (68 sets, daily range): BP systolic 91–141; BP diastolic 56–97; PULSE 73–147; TEMP 36.6–37.1; O2SAT 88–97; BMI 39.5; BMI 34.4
--- NOTE | 2024-11-27 10:33 | ECG_ITS ---
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 Measurements Intervals [place] Rate: 134 P: -[id number] NE: -[id number] QRS: 74 QRSD: 98 T: 43 QT: 326 QTc: 405 Interpretive Statements 53260 Atrial fibrillation with rapid ventricular response with premature ventricular or aberrantly conducted complexes 3434 Septal myocardial infarction, age undetermined INCOMPLETE RIGHT BUNDLE BRANCH BLOCK 4137 Anterior injury or acute infarct 9150 abnormal ECG No previous ECG available for comparison Electronically Signed On 11-27-2024 17:43:48 EDT by KAROLYN HERRERA M.D.
--- OUTSIDE RECORDS SUMMARY | 2024-11-27 10:37 | XMS_ITS | CCD ---
Author Organization [facility] Care Team Providers Care Manager Clinical Informatics Name Role Phone Unavailable Primary Care Provider [...] Test Name Value Interpretation Reference Range [facility]il [facility] ECG 12 lead (Midmark)on 02-19 Sinus Rhythm -Right bundle branch block. ABNORMAL [facility] 12-LEAD (MIDMARK)on 02-19 ECG 12-LEAD (MIDMARK) Sinus Rhythm -Right bundle branch block. ABNORMAL Normal [facility] ECG 12-LEAD (MIDMARK)on 07-22 ECG 12-LEAD (MIDMARK) Sinus Bradycardia -occasional PAC -Right bundle branch block. ABNORMAL Normal [facility] ECG 12 lead (MIDMARK)on Sinus bradycardia -Right bundle branch block. ABNORMAL [facility] [employer] ECG 12 lead (MIDMARK)on 02-19 [facility] [employer] Sinus Rhythm -Right bundle branch block. ABNORMAL [facility] [employer] ECG 12 lead (Midmark)on Sinus rhythm with frequent PACs -Right bundle branch block. ABNORMAL [employer] Test Result Ejection Fractio non 10-30-2019 Test Result Ejection Fraction 56 Normal [facility] Vital Signs Date Time Vital Sign Value Performing Clinician Palmer peralta 03-17-2024 13:04-0400 Body mass index (BMI) [Ratio] 33.93 kg/m2 Sedrick Reyes MD Work Phone: [facility] 03-17-2024 13:04-0400 Body temperature 97.5 [degF] Sedrick Reyes MD Work Phone: [facility] 03-17-2024 13:04-0400 Body weight 110.36 kg Sedrick Reyes MD Work Phone: [facility] 03-17-2024 13:04-0400 Diastolic blood pressure 73 mm[Hg] Sedrick Reyes MD Work Phone: [facility] 03-17-2024 13:04-0400 Heart rate 76 /min Sedrick Reyes MD Work Phone: [facility] 03-17-2024 13:04-0400 Systolic blood pressure 137 mm[Hg] Sedrick Reyes MD Work Phone: [facility] 01-25-2023 14:54-0400 Body height 180.3 cm Sedrick Reyes MD Work Phone: [facility] 01-25-2023 14:54-0400 Body mass index (BMI) [Ratio] 32.75 kg/m2 Sedrick Reyes MD Work Phone: [facility] 01-25-2023 14:54-0400 Body temperature 97.39 [degF] Sedrick Reyes MD Work Phone: [facility] 01-25-2023 14:54-0400 Body weight 106.5 kg Sedrick Reyes MD Work Phone: [facility] 01-25-2023 14:54-0400 Diastolic blood pressure 53 mm[Hg] Sedrick Reyes MD Work Phone: [facility] 01-25-2023 14:54-0400 Heart rate 55 /min Sedrick Reyes MD Work Phone: [facility] 01-25-2023 14:54-0400 Systolic blood pressure 114 mm[Hg] Sedrick Reyes MD Work Phone: [facility] 03-16-2022 15:11-0400 Body height 177.8 cm Sedrick Reyes MD Work Phone: [facility] 03-16-2022 15:11-0400 Body mass index (BMI) [Ratio] 36.79 kg/m2 Sedrick Reyes MD Work Phone: [facility] 03-16-2022 15:11-0400 Body weight 116.3 kg Sedrick Reyes MD Work Phone: [facility] 03-16-2022 15:11-0400 Diastolic blood pressure 69 mm[Hg] Sedrick Reyes MD Work Phone: [facility] 03-16-2022 15:11-0400 Heart rate 62 /min Sedrick Reyes MD Work Phone: [facility] 03-16-2022 15:11-0400 Systolic blood pressure 131 mm[Hg] Sedrick Reyes MD Work Phone: [facility] 08-21-2021 13:37-0500 Body height 180.3 cm Sedrick Reyes MD Work Phone: [facility] 08-21-2021 13:37-0500 Body mass index (BMI) [Ratio] 35.57 kg/m2 Sedrick Reyes MD Work Phone: [facility] 08-21-2021 13:37-0500 Body temperature 98.2 [degF] Sedrick Reyes MD Work Phone: [facility] 08-21-2021 13:37-0500 Body weight 115.67 kg Sedrick Reyes MD Work Phone: [facility] 08-21-2021 13:37-0500 Diastolic blood pressure 65 mm[Hg] Sedrick Reyes MD Work Phone: [facility] 08-21-2021 13:37-0500 Heart rate 73 /min Sedrick Reyes MD Work Phone: [facility] 08-21-2021 13:37-0500 Respiratory rate 20 /min Sedrick Reyes MD Work Phone: [facility] 08-21-2021 13:37-0500 Systolic blood pressure 140 mm[Hg] Sedrick Reyes MD Work Phone: [facility] Encounters Encounter Date Encounter Type Care Provider Facility Start: 03-17-2024 End: 03-17-2024 Office outpatient visit 25 minutes Sedrick Reyes MD Work Phone: [facility] [place] Comment on above: RBBB (right bundle b ranch block) (Primary Dx); PAC (premature atrial contraction); Essential hypertension; Mixed hyperlipidemia; Obstructive sleep apnea syndrome in adult Start: 03-17-2024 End: 03-17-2024 Patient encounter procedure Sedrick Reyes MD Work Phone: [facility] [place] Start: 03-17-2024 End: 03-17-2024 ambulatory GRIFFIN MOON [facility] Start: 08-18-2023 End: 08-18-2023 ambulatory SEDRICK REYES [facility] Start: 01-25-2023 End: 01-25-2023 Office outpatient visit 25 minutes Sedrick Reyes MD Work Phone: [facility] [place] Comment on above: RBBB (right bundle b ranch block) (Primary Dx); PAC (premature atrial contraction); Essential hypertension; Mixed hyperlipidemia; Obstructive sleep apnea syndrome in adult Start: 01-25-2023 End: 01-25-2023 Patient encounter procedure Sedrick Reyes MD Work Phone: [facility] [place] Start: 03-16-2022 End: 03-16-2022 Office outpatient visit 25 minutes Sedrick Reyes MD Work Phone: [facility] [place] Comment on above: Essential hypertensi on (Primary Dx); PAC (premature atrial contraction); Mixed hyperlipidemia; Right bundle branch block; Obstructive sleep apnea syndrome in adult Start: 03-16-2022 End: 03-16-2022 Patient encounter procedure Sedrick Reyes MD Work Phone: [facility] [place] Start: 10-01-2021 Orders Only Sedrick Reyes MD Work Phone: [facility] [place] Comment on above: Premature atrial con tractions (Primary Dx) Start: 10-01-2021 End: 10-01-2021 Orders Only Sedrick Reyes MD Work Phone: [facility] [place] Start: 08-27-2021 End: 08-27-2021 Telephone encounter Paulette Kidd RN [facility] [place] Comment on above: faulty monitor Start: 08-21-2021 End: 08-21-2021 Office outpatient visit 25 minutes Sedrick Reyes MD Work Phone: [facility] [place] Comment on above: Essential hypertensi on (Primary Dx); Paroxysmal atrial fibrillation (CMS/HCC); Mixed hyperlipidemia; Right bundle branch block; Obstructive sleep apnea syndrome in adult Start: 08-21-2021 End: 08-21-2021 Patient encounter procedure Sedrick Reyes MD Work Phone: [facility] [place] Start: 07-29-2021 End: 07-30-2021 ambulatory CASTRO [...] Td Vaccines (3 - Td or Tdap) [facility] Start: 03-08-2026 DTaP,Tdap,and Td Vaccines (2 - Td or Tdap) DTaP,Tdap,and Td Vaccines (2 - Td or Tdap) [facility] Start: 04-14-2024 Zoster Vaccines (2 o f 2) Zoster Vaccines (2 of 2) [facility] Start: 08-18-2023 End: 08-18-2023 Patient encounter procedure 08/18/2023 Office Visit Cardiology Sedrick Reyes MD [place] [address] [place] [address] [facility] [place] Start: 05-21-2023 COVID-19 Vaccine ( season) COVID-19 Vaccine ( season) [facility] Start: 01-25-2023 Diabetes: Annual Ret foreign Eye Exam Diabetes: Annual Retina Eye Exam [facility] Start: 01-25-2023 Diabetes: Annual Uri ne Albumin-Creatinine Ratio (uACR) Diabetes: Annual Urine Albumin-Creatinine Ratio (uACR) [facility] Start: 01-25-2023 Diabetic foot examination Diabetes: Annual Foot Exam [facility] Start: 01-25-2023 Hemoglobin A1c measurement Diabetes: Blood Sugar Control Test (HGBA1C) [facility] Start: 08-21-2021 End: 08-21-2022 Cardiac event monitor Cardiac event monitor Cardiac Services Routine Paroxysmal atrial fibrillation (CMS/HCC) Expected: 08/21/2021, Expires: 08/21/2022 [facility] Work Phone: Comment on above: Expected: 08/21/2021 , Expires: 08/21/2022 Start: 08-20-2021 Diabetes: Annual Ret foreign Eye Exam Diabetes: Annual Retina Eye Exam [facility] Start: 08-20-2021 Diabetic foot examination Diabetes: Annual Foot Exam [facility] Start: 08-20-2021 Hemoglobin A1c measurement Diabetes: Blood Sugar Control Test (HGBA1C) [facility] Start: 08-20-2021 Urine screening for protein Diabetes: Annual Urine Protein Test (Microalbumin) [facility] Start: 06-09-2021 Hypertension/CHF/CAD Annual BMP Blood Test Hypertension/CHF/CAD Annual BMP Blood Test [facility] Start: 05-21-2021 Influenza vaccination Influenza Vacc ine (#1) [facility] Start: 10-29-2019 Adolescent depressio n screening assessment Depression Screening [facility] Start: 10-29-2019 Falls Risk Assessment Falls Risk Ass essment [facility] Start: 10-29-2019 Lipid panel Cholesterol Sc reening (Lipid Panel) [facility] Start: 10-29-2019 Medicare Annual Wellness Visit Medicare Annual Wellness Visit [facility] Start: 10-29-2019 Social Influencers o f Health Screening Social Influencers of Health Screening [facility] Start: 1999 RSV Immunization Patients 60+ Years Old (1 - 1-dose 60+ series) RSV Immunization Patients 60+ Years Old (1 - 1-dose 60+ series) [facility] Start: 12-24-1989 Zoster Vaccines (1 o f 2) Zoster Vaccines (1 of 2) [facility] Start: 12-24-1958 Zoster Vaccines (1 o f 2) Zoster Vaccines (1 of 2) [facility] Start: 1939 Diabetes: Annual GFR (Glomerular Filtration Rate) Diabetes: Annual GFR (Glomerular Filtration Rate) [facility] Immunizations Immunization Date Immunization Notes Care Provider Fa cility 09-23-2022 Influenza Quadravale nt, 0.5ml (Fluad) 65yo and older Sedrick Reyes MD Work Phone: [facility] 11-10-2021 Influenza, high-dose , quadrivalent Sedrick Reyes MD Work Phone: [facility] 11-10-2021 Pneumococcal Conjuga te 20-Valent Sedrick Reyes MD Work Phone: [facility] 07-29-2021 Moderna SARS-CoV-2 COVID-19, mRNA, LNP-S, preservative free Sedrick Reyes MD Work Phone: [facility] 11-26-2020 Moderna SARS-CoV-2 COVID-19, mRNA, LNP-S, preservative free Sedrick Reyes MD Work Phone: [facility] 10-28-2020 Moderna SARS-CoV-2 COVID-19, mRNA, LNP-S, preservative free Sedrick Reyes MD Work Phone: [facility] 08-29-2019 influenza, high dose seasonal, preservative-free Sedrick Reyes MD Work Phone: [facility] 08-29-2019 influenza virus vacc ine, unspecified formulation Sedrick Reyes MD Work Phone: [facility] 08-18-2016 influenza, seasonal, injectable Sedrick Reyes MD Work Phone: [facility] 03-09-2016 tetanus toxoid, redu kristin diphtheria toxoid, and acellular pertussis vaccine, adsorbed Sedrick Reyes MD Work Phone: [facility] 03-08-2016 tetanus toxoid, redu kristin diphtheria toxoid, and acellular pertussis vaccine, adsorbed Sedrick Reyes MD Work Phone: [facility] 11-12-2015 pneumococcal conjuga te vaccine, 7 valent Sedrick Reyes MD Work Phone: [facility] 11-12-2015 pneumococcal polysaccharide vaccine, 23 valent Sedrick Reyes MD Work Phone: [facility] Payers Date Payer Category Payer Private Health Insurance MARYLOU CORLEY [id number] 2017-Present [address] [place] [address] [id number] 2017 Private Health Insurance MARYLOU CORLEY [id number] 2017-Present [address] [place] [address] [id number] 2017 Private Health Insurance [id number] 2004 Medicare MEDICARE MEDICAR E PART A & B [id number] 2004-Present [address] [place] [address] Medicare [id number] 2004 Medicare MEDICARE MEDICAR E PART A & B [id number] 2004-Present [address] [place] [address] Medicare [id number] 2004 Medicare [id number] 1959 Self-pay 1940 Unknown [id number] 1939 Unknown [id number] Unknown [id number] Unknown [id number] Unknown [id number] Social History Date Type Detail Facility Start: 08-21-2021 End: 08-28-2022 Tobacco smoking status WIIS Never smoker [facility] Start: 08-21-2021 End: 08-28-2022 Tobacco use and exposure Never used [facility] Start: 06-09-2021 History SDOH Alcohol Comment What is your level of alcohol consumption: Occasional [facility] Start: 1940 Sex Assigned At Not on file [facility] Start: 03-06-2022 End: 01-25-2023 Exposure to SARS-CoV-2 (event) Not sure [facility] Start: 03-16-2022 Alcohol intake Lifetime non-d shannan (finding) [facility] Start: 01-25-2023 End: 03-17-2024 Alcohol intake Ex-drinker (finding) [facility] Start: 08-28-2022 Alcohol Comment speciall occasion [employer] Gender identity Not on file [facility] Medical Equipment Procedure Code Equipment Code Equipment Original Text Equi pment Identifier Dates Use as instructed [id number] Use as instructed [id number] History of Present illness Narrative 03-17-2024 Sedrick Reyes MD - 03/17/2024 1:20 PM EDT Note Date & Type Note Facility 03-17-2024 History of Presen t illness Narrative Images from the original note were not included. [place] [employer] [facility] Assessment and Plan Mr. Poewll is doing well and appears stable from a cardiac standpoint. His blood pressure today is acceptable and he appears well compensated. He will continue on his low-dose beta-anpuam given PACs as detected on an event [...] Sedrick Reyes MD 03/17/24 1:19 PM EDT [facility] Super[facility] [address] [facility], [address] [place] [id number] Office [phone] Chief Complaint: Routine follow-up for hypertension and [...] 06/16/2011 VASCULAR SURGERY 09/02/2010 AAA repair in [place] Family History Problem Relation Name Age of [...] from the original note were not included. [employer] [facility] Assessment and Plan Mr. [...] Sedrick Reyes MD 01/25/23 3:06 PM EDT [facility] Super[facility] [address], [address] [place] [address] Office [phone] Chief Complaint: Routine follow-up for hypertension and [...] 06/16/2011 VASCULAR SURGERY 09/02/2010 AAA repair in [place] Family History Problem Relation Name Age of [...] component: CHOLHDLRAT, LDLHDLRAT documented in this encounter [facility] History of Present illness Narrative 03-16-2022 Sedrick Reyes MD - 03/16/2022 3:40 PM EDT Note Date & Type Note Facility 03-16-2022 History of Presen t illness Narrative Images from the original note were not included. [employer] [facility] Assessment and Plan Mr. [...] Sedrick Reyes MD 03/16/22 3:30 PM EDT [facility] Supervisor [address], [address] [place] [address] Office [phone] Chief Complaint: Routine follow-up for hypertension and [...] 06/16/2011 VASCULAR SURGERY 09/02/2010 AAA repair in [place] Family History Problem Relation Name Age of [...] component: CHOLHDLRAT, LDLHDLRAT documented in this encounter [facility] History of Present illness Narrative 08-27-2021 Paulette Kidd RN - 08/27/2021 11:34 AM EST Note Date & Type Note Facility 08-27-2021 History of Presen t illness Narrative Per first monitor did not work I sent an email to [employer] to send another one documented in this encounter [facility] History of Present illness Narrative 08-21-2021 Sedrick Reyes MD - 08/21/2021 2:10 PM EST Note Date & Type Note Facility 08-21-2021 History of Presen t illness Narrative Images from the original note were not included. [employer] [facility] Assessment and Plan Jorge [...] Sedrick Reyes MD 08/21/21 2:00 PM EST [facility] Super[facility] [address] [facility], [address] [place] [address] Office [phone] Chief Complaint: Routine follow-up for hypertension hyperlipidemia [...] 06/16/2011 VASCULAR SURGERY 09/02/2010 AAA repair in [place] Family History Problem Relation Name Age of [...] component: CHOLHDLRAT, LDLHDLRAT documented in this encounter [facility] note Note Date & Type Note Facility Evaluation note Diagnosis Essential hypertension- Primary Unspecified essential hypertension Paroxysmal atrial fibrillation (CMS/HCC) Atrial fibrillation Mixed hyperlipidemia Right bundle branch block Obstructive sleep apnea syndrome in adult documented in this encounter [facility] Evaluation note Note Date & Type Note Facility Evaluation note Diagnosis Premature atrial contractions- Primary Supraventricular premature beats documented in this encounter [facility] note Note Date & Type Note Facility Evaluation note Diagnosis Essential hypertension- Primary Unspecified essential hypertension PAC (premature atrial contraction) Supraventricular premature beats Mixed hyperlipidemia Right bundle branch block Obstructive sleep apnea syndrome in adult documented in this encounter [facility] note Note Date & Type Note Facility Evaluation note Diagnosis RBBB (right bundle branch block)- Primary Right bundle branch block PAC (premature atrial contraction) Supraventricular premature beats Essential hypertension Unspecified essential hypertension Mixed hyperlipidemia Obstructive sleep apnea syndrome in adult documented in this encounter [facility] Evaluation note Note Date & Type Note Facility Evaluation note Diagnosis RBBB (right bundle branch block)- Primary Right bundle branch block PAC (premature atrial contraction) Supraventricular premature beats Essential hypertension Unspecified essential hypertension Mixed hyperlipidemia Obstructive sleep apnea syndrome in adult documented in this encounter [facility] Summary Purpose Family History No Family History Records FoundNo Family History Records FoundNo Family History Records Found Advance Directives No Advanced Directives Records FoundDocuments on File Type Date Recorded Patient [employer] Expl anation Power of Textile Screen Maker Documents on File Type Date Recorded Patient [employer] Expl anation Power of Textile Screen Maker Reason for Referral Specialty Diagnoses / Procedures Referred By Contac t Referred To Contact Cardiology Diagnoses Paroxysmal atrial fibrillation (CMS/HCC) Procedures Cardiac event monitor MA ECG EXTERNAL < 48 HOURS RECORDING MA ECG EXTERNAL < 48 HOURS SCANNING ANALYSIS W/REPORT MA ECG EXTERNAL < 48 HOURS CONTINUOUS RHYTHM RECORDING & STORAGE REVIEW & INTERPRETATION BY A PHYSICIAN/OTHER QUALIFIED HEALTH ILLUMINATOR Sedrick Reyes MD [address] [facility] [address] [place] [address] Referral ID Status Reason Start Date Expiration Date V isits Requested Visits Authorized [id number] Authorized 08/21/2021 02/17/2022 1 1 Additional Source Comments (unrecognized sect ion and content) No Status Records FoundNo Status Records FoundNo Status Records Found INFORMATION SOURCE (unrecogn ized section and content) DATE CREATED AUTHOR 10/31/2019 [place] [facility] DATE CREATED AUTHOR AUTHOR'S ORGANIZ ATION 08/25/2021 [facility] DATE CREATED AUTHOR AUTHOR'S ORGANIZ ATION 03/19/2024 [facility] Reason for Visit (unrecogniz ed section and [...] Care Teams (unrecognized sec tion and content) Manager Clinical Informatics Relationship Specialty Start Date End Date Griffin Moon MD [address] [place] [id number] PCP - General Family Medicine 03/17/24 FOR [...] BE BASED ON THE PRIMARY CLINICAL RECORDS. [employer] provides no warranty or guarantee of the accuracy or completeness of information in this document.
[2024-11-27] MEDS: DILTIAZEM HCL 25 MG/5 ML VIAL 20 MG IV (10:41)
[2024-11-27 10:47] LABS: Basophils Percent Auto 0.5 % (0.2-2.0); Eosinophils Percent Auto 0.2 % (0.9-7.0); Hematocrit 38.2 % (42.0-54.0); Hemoglobin 12.5 g/dL (14.0-18.0); Immature Granulocytes Abs Auto 0.02 10^3/uL (0.00-0.03); Immature Granulocytes Pct Auto 0.3 % (0.0-0.5); Lymphocytes Absolute Auto 0.8 10^3/uL (1.2-3.8); Lymphocytes Percent Auto 11.7 % (20.5-60.0); Mean Corpuscular HGB Conc 32.7 g/dL (29.9-35.2); Mean Corpuscular Hemoglobin 29.6 pg (25.9-34.0); Mean Corpuscular Volume 90.3 fL (80.0-94.0); Mean Platelet Volume 10.1 fL (9.5-13.5); Monocytes Percent Auto 15.5 % (1.7-12.0); Neutrophils Absolute Auto 4.7 10^3/uL (1.4-6.5); Neutrophils Percent Auto 71.8 % (43.0-75.0); Platelet Count 211 10^3/uL (150-450); Red Blood Count 4.23 10^6/uL (4.70-6.10); Red Cell Distribution Width 13.7 % (11.0-15.0); White Blood Count 6.6 10^3/uL (4.0-11.0)
[2024-11-27 11:02] LABS: INR 1.13; Partial Thromboplastin Time 30.2 sec (22.3-36.2); Prothrombin Time 11.8 sec (9.0-11.6)
[2024-11-27 11:07] LABS: Anion Gap 14.8; BUN Creatinine Ratio 17.2; Calcium 8.8 mg/dL (8.5-10.1); Chloride 101 mmol/L (98-107); Estimated GFR (African America 54 (>=60 mL/min/1.73m^2); Estimated GFR (Non-African Ame 44 (>=60 mL/min/1.73m^2); Glucose 182 mg/dL (74-106); Magnesium 1.9 mg/dL (1.8-2.4); Potassium 4.8 mmol/L (3.5-5.1); Sodium 134 mmol/L (136-145)
[2024-11-27 11:11] LABS: Troponin I High Sensitivity 94.2 pg/mL (4.0-76.1)
[2024-11-27] MEDS: dilTIAZem HCL 125 MG in 0.9 % SODIUM CHLORIDE 100 ML IV (11:16)
--- NOTE | 2024-11-27 11:29 | ED_ITS ---
HPI HPI - General Adult General Chief complaint: Shortness of Breath/Dyspnea Stated complaint: OTHER Time Seen by Provider: 11/27/24 10:29 Source: patient Mode of arrival: ambulance Limitations: no limitations History of Present Illness HPI narrative: 83-year-old male presents for feeling weak. He states he started feeling his heart racing last night. He was noted to have A-fib with RVR by the paramedics and he was given 10 mg of IV Cardizem. No fever or vomiting. He had fallen about a week ago and has bruising to his leg but he has been able to walk. Related Data Home Medications ?Medication ?Instructions ?Recorded ?Confirmed amlodipine 5 mg-benazepril 10 mg 1 cap PO DAILY 11/27/24 11/27/24 capsule atorvastatin 40 mg tablet 40 mg PO DAILY 11/27/24 11/27/24 metoprolol succinate 50 mg 50 mg PO DAILY 11/27/24 11/27/24 tablet,extended release 24 hr sitagliptin phosphate 50 1 tab PO BID 11/27/24 11/27/24 mg-metformin 500 mg tablet (Janumedonal) Allergies Allergy/AdvReac Type Severity Reaction Status Date / Time No Known Drug Allergies Allergy Verified 11/27/24 10:36 Opioid HPI Opioid Management Most Recent Opioid Data: No Data to Display Review of Systems ROS Narrative A ten point review of systems is negative except as noted above. PFSH PFSH Social History Little interest or pleasure in doing things: not at all Feeling down, depressed, or hopeless: not at all Exam Narrative Exam Narrative: Nurses note and vital signs reviewed and patient is not hypoxic. General: The patient appears in no acute respiratory distress Skin: Warm, dry, no pallor noted. There is no rash noted. Head: Normocephalic, atraumatic Eye: Normal conjunctiva, no drainage Ears, Nose, Mouth, and Throat: oral mucosa is moist. Nares patent. Cardiovascular: Irregular irregular and tachycardic Respiratory: Patient is in no distress, no accessory muscle use, lungs are clear to auscultation, no wheezing, rales or rhonchi Back: non-tender GI: Soft and nontender Musculoskeletal: Extensive bruising on the right leg, particular in the right buttock area which goes down to the popliteal area and into the lower back. His hip and knee have full range of motion. Neurological: A&O, normal speech Psychiatric: Cooperative Constitutional Vital Signs, click to edit/add: Last Vital Signs Temp 98.7 F 11/27/24 10:31 Pulse 101 H 11/27/24 10:45 Resp 22 H 11/27/24 10:45 BP 103/65 11/27/24 11:16 Pulse Ox 94 L 11/27/24 10:45 O2 Del Method Room Air 11/27/24 10:40 Course Vital Signs Vital signs: Vital Signs Temperature 98.7 F 11/27/24 10:31 Pulse Rate 145 H 11/27/24 10:31 Respiratory Rate 24 H 11/27/24 10:31 Blood Pressure 107/61 11/27/24 10:31 Pulse Oximetry 95 11/27/24 10:31 Oxygen Delivery Method Room Air 11/27/24 10:31 Temperature 98.7 F 11/27/24 10:31 Pulse Rate 101 H 11/27/24 10:45 Respiratory Rate 22 H 11/27/24 10:45 Blood Pressure 103/65 11/27/24 11:16 Pulse Oximetry 94 L 11/27/24 10:45 Oxygen Delivery Method Room Air 11/27/24 10:40 Medical Decision Making MDM Narrative Medical decision making narrative: He presented with atrial fibrillation and RVR. He was given 10 mg of Cardizem by the paramedics and then 20 mg bolus here. He was placed on a drip at 5 and this is maintaining his heart rate in the low 100s to upper 90s. Findings are discussed with the patient and his family and he is being admitted. Differential Diagnosis Differential Diagnosis: Atrial fibrillation, atrial flutter, NM Lab Data Lab results reviewed: Yes I reviewed the patient's lab results Labs: Lab Results 11/27/24 11/27/24 Range/Units 10:42 11:31 WBC 6.6 (4.0-11.0) 10^3/uL RBC 4.23 L (4.70-6.10) 10^6/uL Hgb 12.5 L (14.0-18.0) g/dL Hct 38.2 L (42.0-54.0) % MCV 90.3 (80.0-94.0) fL MCH 29.6 (25.9-34.0) pg MCHC 32.7 (29.9-35.2) g/dL RDW 13.7 (11.0-15.0) % Plt Count 211 (150-450) 10^3/uL MPV 10.1 (9.5-13.5) fL Neut % (Auto) 71.8 (43.0-75.0) % Lymph % (Auto) 11.7 L (20.5-60.0) % [place] % (Auto) 15.5 H (1.7-12.0) % Eos % (Auto) 0.2 L (0.9-7.0) % Baso % (Auto) 0.5 (0.2-2.0) % Neut # (Auto) 4.7 (1.4-6.5) 10^3/uL Lymph # (Auto) 0.8 L (1.2-3.8) 10^3/uL [place] # (Auto) 1.0 H (0.3-0.8) 10^3/uL Eos # (Auto) 0.0 (0.0-0.7) 10^3/uL Baso # (Auto) 0.0 (0.0-0.1) 10^3/uL Abs Immat Gran (auto) 0.02 (0.00-0.03) 10^3/uL Imm/Tot Granulo (auto) 0.3 (0.0-0.5) % PT 11.8 H (9.0-11.6) sec INR 1.13 APTT 30.2 (22.3-36.2) sec Sodium 134 L (136-145) mmol/L Potassium 4.8 (3.5-5.1) mmol/L Chloride 101 (98-107) mmol/L Carbon Dioxide 23.0 (21.0-32.0) mmol/L Anion Gap 14.8 BUN 26.0 H (7.0-18.0) mg/dL Creatinine 1.51 H (0.70-1.30) mg/dL Est GFR ( Amer) 54 L (>=60 mL/min/1.73m^2) Est GFR (Non-Af Amer) 44 L (>=60 mL/min/1.73m^2) BUN/Creatinine Ratio 17.2 Glucose 182 H (74-106) mg/dL Calcium 8.8 (8.5-10.1) mg/dL Magnesium 1.9 (1.8-2.4) mg/dL Troponin I High Sens 94.2 H* 95.9 H* (4.0-76.1) pg/mL Imaging Data Chest x-ray: Radiologist's impression: Cardiomegaly, otherwise unremarkable chest examination ECG Data Attestation: I personally reviewed and interpreted this ECG as follows: (Initial EKG shows atrial fibrillation with RVR with a rate of 134) Critical Care Time Critical Care Time Critical Care Time: Yes Total Critical Care Time: 4 Attestation: Due to the high probability of sudden and clinically significant deterioration in the patient's condition he/she required the highest level of my preparedness to intervene urgently I provided critical care time including documentation time, medication orders and management, reevaluation, vital sign assessment, ordering and reviewing of lab tests, ordering and reviewing of x-ray studies, and admission orders. Aggregate critical care time is 40 minutes including only time during which I was engaged in work directly related to his/her care and did not include time spent treating other patients simultaneously. Discharge Plan Discharge Chief Complaint: Shortness of Breath/Dyspnea Clinical Impression: Atrial fibrillation with RVR Patient Disposition: Admitted As Inpatient Time of Disposition Decision: 12:20 Condition: Fair
[2024-11-27 12:15] LABS: Troponin I High Sensitivity 95.9 pg/mL (4.0-76.1)
--- OUTSIDE RECORDS SUMMARY | 2024-11-27 13:41 | XMS_ITS | CCD ---
Author Organization [facility] Care Team Providers Care Bond Manager Name Role Phone Unavailable Primary Care Provider [...] Test Name Value Interpretation Reference Range Facil [facility] ECG 12 lead ([facility]mark)on 02-19 Sinus Rhythm -Right bundle branch block. ABNORMAL [facility] ECG 12-LEAD (MIDMARK)on 02-19 ECG 12-LEAD (MIDMARK) Sinus Rhythm -Right bundle branch block. ABNORMAL Normal [facility] ECG 12-LEAD (MIDMARK)on 07-22 ECG 12-LEAD (M[facility]MARK) Sinus Bradycardia -occasional PAC -Right bundle branch block. ABNORMAL Normal [facility] ECG 12 lead (MIDMARK)on Sinus bradycardia -Right bundle branch block. ABNORMAL [facility] ECG 12 lead (MIDMARK)on 02-19 [facility] Sinus Rhythm -Right bundle branch block. ABNORMAL [facility] ECG 12 lead ([facility]mark)on Sinus rhythm with frequent PACs -Right bundle branch block. ABNORMAL [facility] Test Result Ejection Fractio non 10-30-2019 Test Result Ejection Fraction 56 Normal [facility] Vital Signs Date Time Vital Sign Value Performing Clinician Palmer peralta 03-17-2024 13:04-0400 Body mass index (BMI) [Ratio] 33.93 kg/m2 Sedrick Reyes MD Work Phone: [facility] 03-17-2024 13:04-0400 Body temperature 97.5 [degF] Sedrick Reyes MD Work Phone: [facility] 03-17-2024 13:04-0400 Body weight 110.36 kg Sedrick Reyes MD Work Phone: [facility] 03-17-2024 13:04-0400 Diastolic blood pressure 73 mm[Hg] Sedrick Reyes MD Work Phone: [facility] 03-17-2024 13:04-0400 Heart rate 76 /min Sedrick Reyes MD Work Phone: [facility] 03-17-2024 13:04-0400 Systolic blood pressure 137 mm[Hg] Sedrick Reyes MD Work Phone: [facility] 01-25-2023 14:54-0400 Body height 180.3 cm Sedrick Reyes MD Work Phone: [facility] 01-25-2023 14:54-0400 Body mass index (BMI) [Ratio] 32.75 kg/m2 Sedrick Reyes MD Work Phone: [facility] 01-25-2023 14:54-0400 Body temperature 97.39 [degF] Sedrick Reyes MD Work Phone: [facility] 01-25-2023 14:54-0400 Body weight 106.5 kg Sedrick Reyes MD Work Phone: [facility] 01-25-2023 14:54-0400 Diastolic blood pressure 53 mm[Hg] Sedrick Reyes MD Work Phone: [facility] 01-25-2023 14:54-0400 Heart rate 55 /min Sedrick Reyes MD Work Phone: [facility] 01-25-2023 14:54-0400 Systolic blood pressure 114 mm[Hg] Sedrick Reyes MD Work Phone: [facility] 03-16-2022 15:11-0400 Body height 177.8 cm Sedrick Reyes MD Work Phone: [facility] 03-16-2022 15:11-0400 Body mass index (BMI) [Ratio] 36.79 kg/m2 Sedrick Reyes MD Work Phone: [facility] 03-16-2022 15:11-0400 Body weight 116.3 kg Sedrick Reyes MD Work Phone: [facility] 03-16-2022 15:11-0400 Diastolic blood pressure 69 mm[Hg] Sedrick Reyes MD Work Phone: [facility] 03-16-2022 15:11-0400 Heart rate 62 /min Sedrick Reyes MD Work Phone: [facility] 03-16-2022 15:11-0400 Systolic blood pressure 131 mm[Hg] Sedrick Reyes MD Work Phone: [facility] 08-21-2021 13:37-0500 Body height 180.3 cm Sedrick Reyes MD Work Phone: [facility] 08-21-2021 13:37-0500 Body mass index (BMI) [Ratio] 35.57 kg/m2 Sedrick Reyes MD Work Phone: [facility] 08-21-2021 13:37-0500 Body temperature 98.2 [degF] Sedrick Reyes MD Work Phone: [facility] 08-21-2021 13:37-0500 Body weight 115.67 kg Sedrick Reyes MD Work Phone: [facility] 08-21-2021 13:37-0500 Diastolic blood pressure 65 mm[Hg] Sedrick Reyes MD Work Phone: [facility] 08-21-2021 13:37-0500 Heart rate 73 /min Sedrick Reyes MD Work Phone: [facility] 08-21-2021 13:37-0500 Respiratory rate 20 /min Sedrick Reyes MD Work Phone: [facility] 08-21-2021 13:37-0500 Systolic blood pressure 140 mm[Hg] Sedrick Reyes MD Work Phone: [facility] Encounters Encounter Date Encounter Type Care Provider Facility Start: 03-17-2024 End: 03-17-2024 Office outpatient visit 25 minutes Sedrick Reyes MD Work Phone: [facility] Comment on above: RBBB (right bundle b ranch block) (Primary Dx); PAC (premature atrial contraction); Essential hypertension; Mixed hyperlipidemia; Obstructive sleep apnea syndrome in adult Start: 03-17-2024 End: 03-17-2024 Patient encounter procedure Sedrick Reyes MD Work Phone: [facility] Start: 03-17-2024 End: 03-17-2024 ambulatory GRIFFIN MOON [facility] Start: 08-18-2023 End: 08-18-2023 ambulatory SEDRICK REYES [facility] Start: 01-25-2023 End: 01-25-2023 Office outpatient visit 25 minutes Sedrick Reyes MD Work Phone: [facility] Comment on above: RBBB (right bundle b ranch block) (Primary Dx); PAC (premature atrial contraction); Essential hypertension; Mixed hyperlipidemia; Obstructive sleep apnea syndrome in adult Start: 01-25-2023 End: 01-25-2023 Patient encounter procedure Sedrick Reyes MD Work Phone: [facility] Start: 03-16-2022 End: 03-16-2022 Office outpatient visit 25 minutes Sedrick Reyes MD Work Phone: [facility] Comment on above: Essential hypertensi on (Primary Dx); PAC (premature atrial contraction); Mixed hyperlipidemia; Right bundle branch block; Obstructive sleep apnea syndrome in adult Start: 03-16-2022 End: 03-16-2022 Patient encounter procedure Sedrick Reyes MD Work Phone: [facility] Start: 10-01-2021 Orders Only Sedrick Reyes MD Work Phone: [facility] Comment on above: Premature atrial con tractions (Primary Dx) Start: 10-01-2021 End: 10-01-2021 Orders Only Sedrick Reyes MD Work Phone: [facility] Start: 08-27-2021 End: 08-27-2021 Telephone encounter Paulette Kidd RN [facility] Comment on above: faulty monitor Start: 08-21-2021 End: 08-21-2021 Office outpatient visit 25 minutes Sedrick Reyes MD Work Phone: [facility] Comment on above: Essential hypertensi on (Primary Dx); Paroxysmal atrial fibrillation (CMS/HCC); Mixed hyperlipidemia; Right bundle branch block; Obstructive sleep apnea syndrome in adult Start: 08-21-2021 End: 08-21-2021 Patient encounter procedure Sedrick Reyes MD Work Phone: [facility] Start: 07-29-2021 End: 07-30-2021 ambulatory CASTRO [...] Td Vaccines (3 - Td or Tdap) [facility] Start: 03-08-2026 DTaP,Tdap,and Td Vaccines (2 - Td or Tdap) DTaP,Tdap,and Td Vaccines (2 - Td or Tdap) [facility] Start: 04-14-2024 Zoster Vaccines (2 o f 2) Zoster Vaccines (2 of 2) [facility] Start: 08-18-2023 End: 08-18-2023 Patient encounter procedure 08/18/2023 Office Visit Cardiology Sedrick Reyes MD [facility] [address] [place] [address] [facility] Start: 05-21-2023 COVID-19 Vaccine ( season) COVID-19 Vaccine ( season) [facility] Start: 01-25-2023 Diabetes: Annual Ret foreign Eye Exam Diabetes: Annual Retina Eye Exam [facility] Start: 01-25-2023 Diabetes: Annual Uri ne Albumin-Creatinine Ratio (uACR) Diabetes: Annual Urine Albumin-Creatinine Ratio (uACR) [facility] Start: 01-25-2023 Diabetic foot examination Diabetes: Annual Foot Exam [facility] Start: 01-25-2023 Hemoglobin A1c measurement Diabetes: Blood Sugar Control Test (HGBA1C) [facility] Start: 08-21-2021 End: 08-21-2022 Cardiac event monitor Cardiac event monitor Cardiac Services Routine Paroxysmal atrial fibrillation (CMS/HCC) Expected: 08/21/2021, Expires: 08/21/2022 [facility] Work Phone: Comment on above: Expected: 08/21/2021 , Expires: 08/21/2022 Start: 08-20-2021 Diabetes: Annual Ret foreign Eye Exam Diabetes: Annual Retina Eye Exam [facility] Start: 08-20-2021 Diabetic foot examination Diabetes: Annual Foot Exam [facility] Start: 08-20-2021 Hemoglobin A1c measurement Diabetes: Blood Sugar Control Test (HGBA1C) [facility] Start: 08-20-2021 Urine screening for protein Diabetes: Annual Urine Protein Test (Microalbumin) [facility] Start: 06-09-2021 Hypertension/CHF/CAD Annual BMP Blood Test Hypertension/CHF/CAD Annual BMP Blood Test [facility] Start: 05-21-2021 Influenza vaccination Influenza Vacc ine (#1) [facility] Start: 10-29-2019 Adolescent depressio n screening assessment Depression Screening [facility] Start: 10-29-2019 Falls Risk Assessment Falls Risk Ass essment [facility] Start: 10-29-2019 Lipid panel Cholesterol Sc reening (Lipid Panel) [facility] Start: 10-29-2019 Medicare Annual Wellness Visit Medicare Annual Wellness Visit [facility] Start: 10-29-2019 Social Influencers o f Health Screening Social Influencers of Health Screening [facility] Start: 1999 RSV Immunization Patients 60+ Years Old (1 - 1-dose 60+ series) RSV Immunization Patients 60+ Years Old (1 - 1-dose 60+ series) [facility] Start: 12-24-1989 Zoster Vaccines (1 o f 2) Zoster Vaccines (1 of 2) [facility] Start: 12-24-1958 Zoster Vaccines (1 o f 2) Zoster Vaccines (1 of 2) [facility] Start: 1939 Diabetes: Annual GFR (Glomerular Filtration Rate) Diabetes: Annual GFR (Glomerular Filtration Rate) [facility] Immunizations Immunization Date Immunization Notes Care Provider Fa cility 09-23-2022 Influenza Quadravale nt, 0.5ml (Fluad) 65yo and older Sedrick Reyes MD Work Phone: [facility] 11-10-2021 Influenza, high-dose , quadrivalent Sedrick Reyes MD Work Phone: [facility] 11-10-2021 Pneumococcal Conjuga te 20-Valent Sedrick Reyes MD Work Phone: [facility] 07-29-2021 Moderna SARS-CoV-2 COVID-19, mRNA, LNP-S, preservative free Sedrick Reyes MD Work Phone: [facility] 11-26-2020 Moderna SARS-CoV-2 COVID-19, mRNA, LNP-S, preservative free Sedrick Reyes MD Work Phone: [facility] 10-28-2020 Moderna SARS-CoV-2 COVID-19, mRNA, LNP-S, preservative free Sedrick Reyes MD Work Phone: [facility] 08-29-2019 influenza, high dose seasonal, preservative-free Sedrick Reyes MD Work Phone: [facility] 08-29-2019 influenza virus vacc ine, unspecified formulation Sedrick Reyes MD Work Phone: [facility] 08-18-2016 influenza, seasonal, injectable Sedrick Reyes MD Work Phone: [facility] 03-09-2016 tetanus toxoid, redu kristin diphtheria toxoid, and acellular pertussis vaccine, adsorbed Sedrick Reyes MD Work Phone: [facility] 03-08-2016 tetanus toxoid, redu kristin diphtheria toxoid, and acellular pertussis vaccine, adsorbed Sedrick Reyes MD Work Phone: [facility] 11-12-2015 pneumococcal conjuga te vaccine, 7 valent Sedrick Reyes MD Work Phone: [facility] 11-12-2015 pneumococcal polysaccharide vaccine, 23 valent Sedrick Reyes MD Work Phone: [facility] Payers Date Payer Category Payer Private Health Insurance MARYLOU CORLEY [id number] 2017-Present [address] [place] [address] [id number] 2017 Private Health Insurance MARYLOU CORLEY [id number] 2017-Present [address] [place] [address] [id number] 2017 Private Health Insurance [id number] 2004 Medicare MEDICARE MEDICAR E PART A & B [id number] 2004-Present [address] [facility] [place] [address] Medicare [id number] 2004 Medicare MEDICARE MEDICAR E PART A & B [id number] 2004-Present [address] [place] [address] Medicare [id number] 2004 Medicare [id number] 1959 Self-pay 1940 Unknown [id number] 1940 Unknown [id number] Unknown [id number] Unknown [id number] Unknown [id number] Social History Date Type Detail Facility Start: 08-21-2021 End: 08-28-2022 Tobacco smoking status VAIS Never smoker [facility] Start: 08-21-2021 End: 08-28-2022 Tobacco use and exposure Never used [facility] Start: 06-09-2021 History SDOH Alcohol Comment What is your level of alcohol consumption: Occasional [facility] Start: 1940 Sex Assigned At Not on file [facility] Start: 03-06-2022 End: 01-25-2023 Exposure to SARS-CoV-2 (event) Not sure [facility] Start: 03-16-2022 Alcohol intake Lifetime non-d shannan (finding) [facility] Start: 01-25-2023 End: 03-17-2024 Alcohol intake Ex-drinker (finding) [facility] Start: 08-28-2022 Alcohol Comment speciall occasion [facility] [employer] Gender identity Not on file [facility] Medical Equipment Procedure Code Equipment Code Equipment Original Text Equi pment Identifier Dates Use as instructed [id number] Use as instructed [id number] History of Present illness Narrative 03-17-2024 Sderick Reyes MD - 03/17/2024 1:20 PM EDT Note Date & Type Note Facility 03-17-2024 History of Presen t illness Narrative Images from the original note were not included. [facility] Assessment and Plan Mr. [...] Sedrick Reyes MD 03/17/24 1:19 PM EDT [facility] [address], [address] [place] [id number] Office [phone] Chief Complaint: Routine follow-up for hypertension and [...] 06/16/2011 VASCULAR SURGERY 09/02/2010 AAA repair in [place] Family History Problem Relation Name Age of [...] from the original note were not included. [facility] Assessment and Plan Mr. [...] Sedrick Reyes MD 01/25/23 3:06 PM EDT [facility] [address], [address] [place] [address] Office [phone] Chief Complaint: Routine follow-up for hypertension and [...] 06/16/2011 VASCULAR SURGERY 09/02/2010 AAA repair in [place] Family History Problem Relation Name Age of [...] component: CHOLHDLRAT, LDLHDLRAT documented in this encounter [facility] History of Present illness Narrative 03-16-2022 Sedrick Reyes MD - 03/16/2022 3:40 PM EDT Note Date & Type Note Facility 03-16-2022 History of Presen t illness Narrative Images from the original note were not included. [facility] Assessment and Plan Mr. [...] Sedrick Reyes MD 03/16/22 3:30 PM EDT [facility] [address], [address] [place] [address] Office [phone] Chief Complaint: Routine follow-up for hypertension and [...] 06/16/2011 VASCULAR SURGERY 09/02/2010 AAA repair in [place] Family History Problem Relation Name Age of [...] component: CHOLHDLRAT, LDLHDLRAT documented in this encounter [facility] History of Present illness Narrative 08-27-2021 Paulette Kidd RN - 08/27/2021 11:34 AM EST Note Date & Type Note Facility 08-27-2021 History of Presen t illness Narrative Per first monitor did not work I sent an email to [employer] to send another one documented in this encounter [facility] History of Present illness Narrative 08-21-2021 Sedrick Reyes MD - 08/21/2021 2:10 PM EST Note Date & Type Note Facility 08-21-2021 History of Presen t illness Narrative Images from the original note were not included. [facility] Assessment and Plan Jorge [...] Sedrick Reyes MD 08/21/21 2:00 PM EST [facility] [address], [address] [place] [address] Office [phone] Chief Complaint: Routine follow-up for hypertension hyperlipidemia [...] 06/16/2011 VASCULAR SURGERY 09/02/2010 AAA repair in [place] Family History Problem Relation Name Age of [...] component: CHOLHDLRAT, LDLHDLRAT documented in this encounter [facility] note Note Date & Type Note Facility Evaluation note Diagnosis Essential hypertension- Primary Unspecified essential hypertension Paroxysmal atrial fibrillation (CMS/HCC) Atrial fibrillation Mixed hyperlipidemia Right bundle branch block Obstructive sleep apnea syndrome in adult documented in this encounter [facility] Evaluation note Note Date & Type Note Facility Evaluation note Diagnosis Premature atrial contractions- Primary Supraventricular premature beats documented in this encounter [facility] note Note Date & Type Note Facility Evaluation note Diagnosis Essential hypertension- Primary Unspecified essential hypertension PAC (premature atrial contraction) Supraventricular premature beats Mixed hyperlipidemia Right bundle branch block Obstructive sleep apnea syndrome in adult documented in this encounter [facility] note Note Date & Type Note Facility Evaluation note Diagnosis RBBB (right bundle branch block)- Primary Right bundle branch block PAC (premature atrial contraction) Supraventricular premature beats Essential hypertension Unspecified essential hypertension Mixed hyperlipidemia Obstructive sleep apnea syndrome in adult documented in this encounter [facility] Evaluation note Note Date & Type Note Facility Evaluation note Diagnosis RBBB (right bundle branch block)- Primary Right bundle branch block PAC (premature atrial contraction) Supraventricular premature beats Essential hypertension Unspecified essential hypertension Mixed hyperlipidemia Obstructive sleep apnea syndrome in adult documented in this encounter [facility] Summary Purpose Family History No Family History Records FoundNo Family History Records FoundNo Family History Records Found Advance Directives No Advanced Directives Records FoundDocuments on File Type Date Recorded Patient Cardiac Catheterization Technologist Expl anation Power of Compression Molding Machine Setter Documents on File Type Date Recorded Patient Cardiac Catheterization Technologist Expl anation Power of Compression Molding Machine Setter Reason for Referral Specialty Diagnoses / Procedures Referred By Contac t Referred To Contact Cardiology Diagnoses Paroxysmal atrial fibrillation (CMS/HCC) Procedures Cardiac event monitor PA ECG EXTERNAL < 48 HOURS RECORDING PA ECG EXTERNAL < 48 HOURS SCANNING ANALYSIS W/REPORT PA ECG EXTERNAL < 48 HOURS CONTINUOUS RHYTHM RECORDING & STORAGE REVIEW & INTERPRETATION BY A PHYSICIAN/OTHER QUALIFIED HEALTH NURSE MIDWIFE Sedrick Reyes MD [address] [facility] [address] [place] [address] Referral ID Status Reason Start Date Expiration Date V isits Requested Visits Authorized [id number] Authorized 08/21/2021 02/17/2022 1 1 Additional Source Comments (unrecognized sect ion and content) No Status Records FoundNo Status Records FoundNo Status Records Found INFORMATION SOURCE (unrecogn ized section and content) DATE CREATED AUTHOR 10/31/2019 [facility] DATE CREATED AUTHOR AUTHOR'S ORGANIZ ATION 08/25/2021 [facility] DATE CREATED AUTHOR AUTHOR'S ORGANIZ ATION 03/19/2024 [facility] Reason for Visit (unrecogniz ed [...] Care Teams (unrecognized sec tion and content) Bond Manager Relationship Specialty Start Date End Date Griffin Moon MD [address] [place] [id number] PCP - General Family Medicine 03/17/24 FOR [...] BE BASED ON THE PRIMARY CLINICAL RECORDS. [employer] provides no warranty or guarantee of the accuracy or completeness of information in this document.
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
[2024-11-27] MEDS: ENOXAPARIN SODIUM 40 MG/0.4 ML SYRINGE SUBQ (14:45)
[2024-11-27] MEDS: METOPROLOL SUCCINATE 50 MG TAB.ER.24H PO ×2 (14:47→22:04)
[2024-11-27 15:01] LABS: Influenza Virus A Antigen Positive; Influenza Virus B Antigen Negative; Internal Control Within Normal Limits
[2024-11-27 15:02] LABS: Internal Control Within Normal Limits; SARS-CoV-2 Ag NEGATIVE (NEGATIVE)
[2024-11-27 16:06] LABS: Glucometer 167 mg/dL (74-106)
[2024-11-27] MEDS: INSULIN ASPART 300 UNIT/3 ML PEN SUBQ ×2 (16:24→22:09)
[2024-11-27] MEDS: 0.9 % SODIUM CHLORIDE 1,000 ML 75 ML IV (16:25)
[2024-11-27] MEDS: NYSTATIN 15 GM POWDER 1 APPLIC TOPICAL ×2 (17:41→22:04)
[2024-11-27 22:12] LABS: Glucometer 170 mg/dL (74-106)
[2024-11-28] VITALS (38 sets, daily range): BP systolic 94–127; BP diastolic 61–82; PULSE 71–135; TEMP 36.4–36.8; O2SAT 91–96
[2024-11-28] MEDS: 0.9 % SODIUM CHLORIDE 1,000 ML 75 ML IV (05:22)
[2024-11-28] MEDS: NYSTATIN 15 GM POWDER 1 APPLIC TOPICAL ×4 (05:22→21:30)
[2024-11-28 05:55] LABS: Basophils Percent Auto 0.5 % (0.2-2.0); Eosinophils Percent Auto 0.5 % (0.9-7.0); Hematocrit 35.9 % (42.0-54.0); Hemoglobin 11.8 g/dL (14.0-18.0); Immature Granulocytes Abs Auto 0.02 10^3/uL (0.00-0.03); Immature Granulocytes Pct Auto 0.3 % (0.0-0.5); Lymphocytes Percent Auto 16.7 % (20.5-60.0); Mean Corpuscular HGB Conc 32.9 g/dL (29.9-35.2); Mean Corpuscular Hemoglobin 29.8 pg (25.9-34.0); Mean Corpuscular Volume 90.7 fL (80.0-94.0); Mean Platelet Volume 10.2 fL (9.5-13.5); Monocytes Percent Auto 16.3 % (1.7-12.0); Neutrophils Percent Auto 65.7 % (43.0-75.0); Platelet Count 208 10^3/uL (150-450); Red Blood Count 3.96 10^6/uL (4.70-6.10); White Blood Count 6.1 10^3/uL (4.0-11.0)
[2024-11-28 06:16] LABS: Alanine Aminotransferase 21 U/L (16-63); Albumin Globulin Ratio 0.9; Albumin Level 2.8 g/dL (3.4-5.0); Alkaline Phosphatase 81 U/L (46-116); Anion Gap 16.2; Aspartate Amino Transferase 30 U/L (15-37); BUN Creatinine Ratio 18.5; Bilirubin Total 1.2 mg/dL (0.2-1.0); Calcium 8.3 mg/dL (8.5-10.1); Carbon Dioxide 21.4 mmol/L (21.0-32.0); Chloride 104 mmol/L (98-107); Estimated GFR (African America >60 (>=60 mL/min/1.73m^2); Estimated GFR (Non-African Ame 53 (>=60 mL/min/1.73m^2); Globulin 3.2 g/dL; Glucose 156 mg/dL (74-106); Potassium 4.6 mmol/L (3.5-5.1); Sodium 137 mmol/L (136-145)
[2024-11-28] MEDS: METOPROLOL SUCCINATE 50 MG TAB.ER.24H PO ×2 (08:07→21:30)
[2024-11-28] MEDS: INSULIN ASPART 300 UNIT/3 ML PEN SUBQ ×2 (08:07→16:41)
--- NOTE | 2024-11-28 10:41 | CM.NOTE ---
Rounds made with Dr. Sutton. Dr. Sutton reviews plan of care with Mr. Powell. Understanding verbalized. Potential discharge later today after testing.
[2024-11-28] MEDS: METOPROLOL TARTRATE 5 MG/5 ML VIAL IVP (10:47)
--- NOTE | 2024-11-28 12:10 | P.PN_ITS ---
Progress Note: Subjective Subjective Interval history: Patient stable today. Remains in afib but rate controlled. Weaning cardizem drip and on oral metoprolol. Echo pending. C/o pain in hip and pelvis related to fall. Seen by PT and noted weakness. X-ray order and no obvious fracture noted. Normal appetite and no emesis or diarrhea. No chest pain or SOB. Exam Constitutional Vital Signs, click to edit/add: Last Vital Signs Temp 98.1 F 11/28/24 07:37 Pulse 87 11/28/24 07:37 Resp 20 11/28/24 07:37 BP 123/78 11/28/24 07:37 Pulse Ox 96 11/28/24 09:39 O2 Del Method Room Air 11/28/24 09:39 Documenting provider has reviewed patient's vital signs: yes Common normals: no apparent distress, oriented x3 and alert HENMT Common normals: normocephalic Eye Common normals: PERRL and EOMs intact bilaterally Respiratory Common normals: normal respiratory effort and clear to auscultation bilaterally Cardio Common normals: no gallops, no murmurs and no rub Rhythm: abnormal rhythm irregularly irregular GI Common normals: Normal to inspection, nondistended, normoactive bowel sounds present and non-tender Extremity Common normals: no pedal edema Progress Note: Objective Labs Labs: Short CBC 11/28/24 Range/Units 05:20 WBC 6.1 (4.0-11.0) 10^3/uL Hgb 11.8 L (14.0-18.0) g/dL Hct 35.9 L (42.0-54.0) % Plt Count 208 (150-450) 10^3/uL BMP 11/28/24 05:20 Sodium 137 Potassium 4.6 Chloride 104 Carbon Dioxide 21.4 BUN 24.0 H Creatinine 1.30 Glucose 156 H Calcium 8.3 L Liver Function 11/28/24 Range/Units 05:20 Total Bilirubin 1.2 H (0.2-1.0) mg/dL AST 30 (15-37) U/L ALT 21 (16-63) U/L Alkaline Phosphatase 81 (46-116) U/L Albumin 2.8 L (3.4-5.0) g/dL Progress Note: A&P Assessment and Plan (1) Atrial fibrillation with RVR: (2) Type 2 myocardial infarction: (3) Influenza A: (4) PANDA (acute kidney injury): (5) Type 2 diabetes mellitus: Qualifiers: Diabetes mellitus terminal operations supervisor insulin use: without terminal operations supervisor use Diabetes mellitus complication status: without complication Qualified Code(s): E11.9 - Type 2 diabetes mellitus without complications (6) HTN (hypertension): Qualifiers: Hypertension type: primary hypertension Qualified Code(s): I10 - Essential (primary) hypertension Plan Remains in afib but rate controlled. Stop cardizem and on oral metoprolol. Troponin initially elevated due to demand mismatch and type 2 NM related to arrhythmia but stable. Severe weakness and continue PT/OT. Echo pending. If continues to improve possibly home in am and may need home health.
--- NOTE | 2024-11-28 12:22 | CA_ITS ---
Patient Name: ISAMAR MACHUCA MR#: [id number] : 1940 Exam Date: 11/28/2024 Ordering Doctor: SHAIKH Andreas FLOOD . ECHOCARDIOGRAM REPORT PROCEDURE: CA ECHO DOPPLER COMPLETE INDICATIONS: Afib with RVR, hypertension, diabetes, h/o colon cancer COMPARISON: None. DESCRIPTION: COMPLETE ECHOCARDIOGRAM Real-time transthoracic echocardiography with 2D, M-mode, spectral and color flow Doppler performed. QUALITY: Technical quality was good. LEFT VENTRICLE: Normal chamber size. Mild concentric left ventricular hypertrophy. Normal systolic function. LV EF: Normal left ventricular ejection fraction, (55%). DIASTOLIC: Not adequately assessed due to heart rhythm. ATRIAL SEPTUM: Visually appears intact. LEFT ATRIUM: Severe dilatation. RIGHT ATRIUM: Severe dilatation. RIGHT VENTRICLE: Moderate dilatation. Mildly reduced right ventricular systolic function. TRICUSPID VALVE: Normal mobility and thickness. No stenosis with trivial regurgitation. Unable to assess right-sided pressures due to lack of measurable tricuspid regurgitation. MITRAL VALVE: Normal mobility and thickness. No evidence of mitral valve stenosis. There is no mitral annular calcification. Mild mitral regurgitation. AORTIC VALVE: Normal trileaflet appearance. No visible sclerosis. Normal leaflet mobility. No evidence of aortic valve stenosis. No aortic regurgitation. AORTIC ROOT: Moderately dilated aortic root (4.5 cm). PULMONIC VALVE: Not well visualized. PERICARDIUM: No evidence of pericardial effusion. IVC: IVC is dilated (2.8 cm), does not collapse. PLEURA: CONCLUSION: 1. Mild concentric low ventricular hypertrophy with normal systolic function. LVEF is estimated at 55%. 2. Moderately dilated right ventricle with mildly reduced systolic function. 3. Severe biatrial dilatation. 4. Mild mitral regurgitation. 5. Moderately dilated aortic root measuring 4.5 cm. 6. Unable to assess right-sided pressures due to lack of measurable tricuspid regurgitation. 7. No pericardial effusion. Adult Echocardiography Procedure Report Left Ventricle LVEDD (3.7 - 5.6 cm): 4.85 cm LVESD (2.2 - 4.0 cm): 3.46 cm LVIVS thickness (0.6 - 1.2 cm): 1.28 cm LVPW thickness (0.5 - 1.0 cm): 1.34 cm LVOT Max Gradient: 2.37 mm[Hg], 0.90 mm[Hg] LVOT Area (cm2): 0.62 m/s Peak Velocity (LVOT): 0.77 m/s, 0.47 m/s LVOT Diameter 2.83 cm Left Atrium LA Volume Index (2D A2C): 58.68 ml/m2 Left Atrium Systolic Dimension: 3.74 cm Mitral Valve Mitral Valve E-Wave Peak Velocity: 0.70 m/s Right Ventricle Aorta AO Root Diam: 4.52 cm Aortic Valve AoV Area (Peak Margarito): 4.63 cm2, 5.15 cm2, 3.97 cm2 Peak Velocity(Antegrade Flow): 0.94 m/s, 0.75 m/s Peak Gradient(Antegrade Flow): 3.52 mm[Hg], 2.25 mm[Hg] Tricuspid Valve Pulmonic Valve Right Atrium Right Atrium Systolic Pressure: 118.42 ml, 118.42 ml Dictated by: Octavio Mcdonnell M.D. on 11/28/2024 at 20:10 Approved by: Octavio Mcdonnell M.D. on 11/28/2024 at 20:13
[2024-11-28 12:25] LABS: Glucometer 120 mg/dL (74-106)
--- NOTE | 2024-11-28 13:33 | SWNOTE1 ---
FREDI met with pt and one of his sons in his room. Prior to going in room, pt's son was showing nurse ANGELA that pt's other son sent to him. SW attempted to assist him in sending to email so we could print it out and have it on our charts. SW started to discuss dc planning with pt and son, but pt wants to wait for his other son to get here. Pt's son in room voiced that pt's will be coming to hospital as she is not feeling well either. FREDI did speak a little about home health services. Pt does have a wlker and cane at home. 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 He cancelled those for the next 4 weeks. Initially pt was going to be discharged home, but likely staying one more night. SW to stop back in later today.
[2024-11-28] MEDS: ENOXAPARIN SODIUM 40 MG/0.4 ML SYRINGE SUBQ (15:25)
--- NOTE | 2024-11-28 15:48 | SWNOTE1 ---
FREDI stopped back in and spoke with pt and other son. Pt' son Brice was in room. SW did review [employer] form with Brice and pt. At this time no further questions or concerns. Pt wanted his son to sign the form. Pt's son signed the form. He would like SW to review with other son who is downstairs in ED with pt's . Pt is agreeable to have HH services coming in. One son lives outside of [place] and the other [place]. They have both voiced that pt and are usually pretty healthy, but feel like the flu has taken them down a little.
--- OUTSIDE RECORDS SUMMARY | 2024-11-28 15:50 | XMS_ITS | CCD ---
Author Organization [facility] Care Team Providers Care Pharmacy Assistant Name Role Phone Unavailable Primary Care Provider [...] Test Name Value Interpretation Reference Range [facility] ECG 12 lead (Midmark)on 02-19 Sinus Rhythm -Right bundle branch block. ABNORMAL [facility] ECG 12-LEAD (MIDMARK)on 02-19 ECG 12-LEAD (MIDMARK) Sinus Rhythm -Right bundle branch block. ABNORMAL Normal [facility] ECG 12-LEAD (MIDMARK)on 07-22 ECG 12-LEAD (MIDMARK) Sinus Bradycardia -occasional PAC -Right bundle branch block. ABNORMAL Normal [facility] ECG 12 lead (MIDMARK)on Sinus bradycardia -Right bundle branch block. ABNORMAL [facility] ECG 12 lead (MIDMARK)on 02-19 [facility] Sinus Rhythm -Right bundle branch block. ABNORMAL [facility] ECG 12 lead (Midmark)on Sinus rhythm with frequent PACs -Right bundle branch block. ABNORMAL [facility] Test Result Ejection Fractio non 10-30-2019 Test Result Ejection Fraction 56 Normal [facility] Vital Signs Date Time Vital Sign Value Performing Clinician Palmer peralta 03-17-2024 13:04-0400 Body mass index (BMI) [Ratio] 33.93 kg/m2 Sedrick Reyes MD Work Phone: [facility] 03-17-2024 13:04-0400 Body temperature 97.5 [degF] Sedrick Reyes MD Work Phone: [facility] 03-17-2024 13:04-0400 Body weight 110.36 kg Sedrick Reyes MD Work Phone: [facility] 03-17-2024 13:04-0400 Diastolic blood pressure 73 mm[Hg] Sedrick Reyes MD Work Phone: [facility] 03-17-2024 13:04-0400 Heart rate 76 /min Sedrick Reyes MD Work Phone: [facility] 03-17-2024 13:04-0400 Systolic blood pressure 137 mm[Hg] Sedrick Reyes MD Work Phone: [facility] 01-25-2023 14:54-0400 Body height 180.3 cm Sedrick Reyes MD Work Phone: [facility] 01-25-2023 14:54-0400 Body mass index (BMI) [Ratio] 32.75 kg/m2 Sedrick Reyes MD Work Phone: [facility] 01-25-2023 14:54-0400 Body temperature 97.39 [degF] Sedrick Reyes MD Work Phone: [facility] 01-25-2023 14:54-0400 Body weight 106.5 kg Sedrick Reyes MD Work Phone: [facility] 01-25-2023 14:54-0400 Diastolic blood pressure 53 mm[Hg] Sedrick Reyes MD Work Phone: [facility] 01-25-2023 14:54-0400 Heart rate 55 /min Sedrick Reyes MD Work Phone: [facility] 01-25-2023 14:54-0400 Systolic blood pressure 114 mm[Hg] Sedrick Reyes MD Work Phone: [facility] 03-16-2022 15:11-0400 Body height 177.8 cm Sedrick Reyes MD Work Phone: [facility] 03-16-2022 15:11-0400 Body mass index (BMI) [Ratio] 36.79 kg/m2 Sedrick Reyes MD Work Phone: [facility] 03-16-2022 15:11-0400 Body weight 116.3 kg Sedrick Reyes MD Work Phone: [facility] 03-16-2022 15:11-0400 Diastolic blood pressure 69 mm[Hg] Sedrick Reyes MD Work Phone: [facility] 03-16-2022 15:11-0400 Heart rate 62 /min Sedrick Reyes MD Work Phone: [facility] 03-16-2022 15:11-0400 Systolic blood pressure 131 mm[Hg] Sedrick Reyes MD Work Phone: [facility] 08-21-2021 13:37-0500 Body height 180.3 cm Sedrick Reyes MD Work Phone: [facility] 08-21-2021 13:37-0500 Body mass index (BMI) [Ratio] 35.57 kg/m2 Sedrick Reyes MD Work Phone: [facility] 08-21-2021 13:37-0500 Body temperature 98.2 [degF] Sedrick Reyes MD Work Phone: [facility] 08-21-2021 13:37-0500 Body weight 115.67 kg Sedrick Reyes MD Work Phone: [facility] 08-21-2021 13:37-0500 Diastolic blood pressure 65 mm[Hg] eSdrick Reyes MD Work Phone: [facility] 08-21-2021 13:37-0500 Heart rate 73 /min Sedrick Reyes MD Work Phone: [facility] 08-21-2021 13:37-0500 Respiratory rate 20 /min Sedrick Reyes MD Work Phone: [facility] 08-21-2021 13:37-0500 Systolic blood pressure 140 mm[Hg] Sedrick Reyes MD Work Phone: [facility] Encounters Encounter Date Encounter Type Care Provider Facility Start: 03-17-2024 End: 03-17-2024 Office outpatient visit 25 minutes Sedrick Reyes MD Work Phone: [facility] Comment on above: RBBB (right bundle b ranch block) (Primary Dx); PAC (premature atrial contraction); Essential hypertension; Mixed hyperlipidemia; Obstructive sleep apnea syndrome in adult Start: 03-17-2024 End: 03-17-2024 Patient encounter procedure Sedrick Reyes MD Work Phone: [facility] Start: 03-17-2024 End: 03-17-2024 ambulatory GRIFFIN MOON [facility] Start: 08-18-2023 End: 08-18-2023 ambulatory SEDRICK REYES [facility] Start: 01-25-2023 End: 01-25-2023 Office outpatient visit 25 minutes Sedrick Reyes MD Work Phone: [facility] Comment on above: RBBB (right bundle b ranch block) (Primary Dx); PAC (premature atrial contraction); Essential hypertension; Mixed hyperlipidemia; Obstructive sleep apnea syndrome in adult Start: 01-25-2023 End: 01-25-2023 Patient encounter procedure Sedrick Reyes MD Work Phone: [facility] Start: 03-16-2022 End: 03-16-2022 Office outpatient visit 25 minutes Sedrick Reyes MD Work Phone: [facility] Comment on above: Essential hypertensi on (Primary Dx); PAC (premature atrial contraction); Mixed hyperlipidemia; Right bundle branch block; Obstructive sleep apnea syndrome in adult Start: 03-16-2022 End: 03-16-2022 Patient encounter procedure Sedrick Reyes MD Work Phone: [facility] Start: 10-01-2021 Orders Only Sedrick Reyes MD Work Phone: [facility] Comment on above: Premature atrial con tractions (Primary Dx) Start: 10-01-2021 End: 10-01-2021 Orders Only Sedrick Reyes MD Work Phone: [facility] Start: 08-27-2021 End: 08-27-2021 Telephone encounter Paulette Kidd RN [facility] Comment on above: faulty monitor Start: 08-21-2021 End: 08-21-2021 Office outpatient visit 25 minutes Sedrick Reyes MD Work Phone: [facility] Comment on above: Essential hypertensi on (Primary Dx); Paroxysmal atrial fibrillation (CMS/HCC); Mixed hyperlipidemia; Right bundle branch block; Obstructive sleep apnea syndrome in adult Start: 08-21-2021 End: 08-21-2021 Patient encounter procedure Sedrick Reyes MD Work Phone: [facility] Start: 07-29-2021 End: 07-30-2021 ambulatory CASTRO [...] Td Vaccines (3 - Td or Tdap) [facility] Start: 03-08-2026 DTaP,Tdap,and Td Vaccines (2 - Td or Tdap) DTaP,Tdap,and Td Vaccines (2 - Td or Tdap) [facility] Start: 04-14-2024 Zoster Vaccines (2 o f 2) Zoster Vaccines (2 of 2) [facility] Start: 08-18-2023 End: 08-18-2023 Patient encounter procedure 08/18/2023 Office Visit Cardiology Sedrick Reyes MD [facility] [address] [place] [address] [facility] Start: 05-21-2023 COVID-19 Vaccine ( season) COVID-19 Vaccine ( season) [facility] Start: 01-25-2023 Diabetes: Annual Ret foreign Eye Exam Diabetes: Annual Retina Eye Exam [facility] Start: 01-25-2023 Diabetes: Annual Uri ne Albumin-Creatinine Ratio (uACR) Diabetes: Annual Urine Albumin-Creatinine Ratio (uACR) [facility] Start: 01-25-2023 Diabetic foot examination Diabetes: Annual Foot Exam [facility] Start: 01-25-2023 Hemoglobin A1c measurement Diabetes: Blood Sugar Control Test (HGBA1C) [facility] Start: 08-21-2021 End: 08-21-2022 Cardiac event monitor Cardiac event monitor Cardiac Services Routine Paroxysmal atrial fibrillation (CMS/HCC) Expected: 08/21/2021, Expires: 08/21/2022 [facility] Work Phone: Comment on above: Expected: 08/21/2021 , Expires: 08/21/2022 Start: 08-20-2021 Diabetes: Annual Ret foreign Eye Exam Diabetes: Annual Retina Eye Exam [facility] Start: 08-20-2021 Diabetic foot examination Diabetes: Annual Foot Exam [facility] Start: 08-20-2021 Hemoglobin A1c measurement Diabetes: Blood Sugar Control Test (HGBA1C) [facility] Start: 08-20-2021 Urine screening for protein Diabetes: Annual Urine Protein Test (Microalbumin) [facility] Start: 06-09-2021 Hypertension/CHF/CAD Annual BMP Blood Test Hypertension/CHF/CAD Annual BMP Blood Test [facility] Start: 05-21-2021 Influenza vaccination Influenza Vacc ine (#1) [facility] Start: 10-29-2019 Adolescent depressio n screening assessment Depression Screening [facility] Start: 10-29-2019 Falls Risk Assessment Falls Risk Ass essment [facility] Start: 10-29-2019 Lipid panel Cholesterol Sc reening (Lipid Panel) [facility] Start: 10-29-2019 Medicare Annual Wellness Visit Medicare Annual Wellness Visit [facility] Start: 10-29-2019 Social Influencers o f Health Screening Social Influencers of Health Screening [facility] Start: 1999 RSV Immunization Patients 60+ Years Old (1 - 1-dose 60+ series) RSV Immunization Patients 60+ Years Old (1 - 1-dose 60+ series) [facility] Start: 12-24-1989 Zoster Vaccines (1 o f 2) Zoster Vaccines (1 of 2) [facility] Start: 12-24-1958 Zoster Vaccines (1 o f 2) Zoster Vaccines (1 of 2) [facility] Start: 1939 Diabetes: Annual GFR (Glomerular Filtration Rate) Diabetes: Annual GFR (Glomerular Filtration Rate) [facility] Immunizations Immunization Date Immunization Notes Care Provider Fa cility 09-23-2022 Influenza Quadravale nt, 0.5ml (Fluad) 65yo and older Sedrick Ryees MD Work Phone: [facility] 11-10-2021 Influenza, high-dose , quadrivalent Sedrick Reyes MD Work Phone: [facility] 11-10-2021 Pneumococcal Conjuga te 20-Valent Sedrick Reyes MD Work Phone: [facility] 07-29-2021 Moderna SARS-CoV-2 COVID-19, mRNA, LNP-S, preservative free Sedrick Reyes MD Work Phone: [facility] 11-26-2020 Moderna SARS-CoV-2 COVID-19, mRNA, LNP-S, preservative free Sedrick Reyes MD Work Phone: [facility] 10-28-2020 Moderna SARS-CoV-2 COVID-19, mRNA, LNP-S, preservative free Sedrick Reyes MD Work Phone: [facility] 08-29-2019 influenza, high dose seasonal, preservative-free Sedrick Reyes MD Work Phone: [facility] 08-29-2019 influenza virus vacc ine, unspecified formulation Sedrick Reyes MD Work Phone: [facility] 08-18-2016 influenza, seasonal, injectable Sedrick Reyes MD Work Phone: [facility] 03-09-2016 tetanus toxoid, redu kristin diphtheria toxoid, and acellular pertussis vaccine, adsorbed Sedrick Reyes MD Work Phone: [facility] 03-08-2016 tetanus toxoid, redu kristin diphtheria toxoid, and acellular pertussis vaccine, adsorbed Sedrick Reyes MD Work Phone: [facility] 11-12-2015 pneumococcal conjuga te vaccine, 7 valent Sedrick Reyes MD Work Phone: [facility] 11-12-2015 pneumococcal polysaccharide vaccine, 23 valent Sedrick Reyes MD Work Phone: [facility] Payers Date Payer Category Payer Private Health Insurance MARYLOU CORLEY [id number] 2017-Present [address] [place] [address] [id number] 2017 Private Health Insurance MARYLOU CORLEY [id number] 2017-Present [address] [place] [address] [id number] 2017 Private Health Insurance [id number] 2004 Medicare MEDICARE MEDICAR E PART A & B [id number] 2004-Present [address] [place] [address] Medicare [id number] 2004 Medicare MEDICARE MEDICAR E PART A & B [id number] 2004-Present [address] [place] [address] Medicare [id number] 2004 Medicare [id number] 1959 Self-pay 1940 Unknown [id number] 1939 Unknown [id number] Unknown [id number] Unknown [id number] Unknown [id number] Social History Date Type Detail Facility Start: 08-21-2021 End: 08-28-2022 Tobacco smoking status NMIS Never smoker [facility] Start: 08-21-2021 End: 08-28-2022 Tobacco use and exposure Never used [facility] Start: 06-09-2021 History SDOH Alcohol Comment What is your level of alcohol consumption: Occasional [facility] Start: 1940 Sex Assigned At Not on file [facility] Start: 03-06-2022 End: 01-25-2023 Exposure to SARS-CoV-2 (event) Not sure [facility] Start: 03-16-2022 Alcohol intake Lifetime non-d shannan (finding) [facility] Start: 01-25-2023 End: 03-17-2024 Alcohol intake Ex-drinker (finding) [facility] Start: 08-28-2022 Alcohol Comment speciall occasion Tr [employer] Gender identity Not on file [facility] Medical Equipment Procedure Code Equipment Code Equipment Original Text Equi pment Identifier Dates Use as instructed [id number] Use as instructed [id number] History of Present illness Narrative 03-17-2024 Sedrick Reyes MD - 03/17/2024 1:20 PM EDT Note Date & Type Note Facility 03-17-2024 History of Presen t illness Narrative Images from the original note were not included. [employer] [facility] Assessment and Plan Mr. [...] Sedrick Reyes MD 03/17/24 1:19 PM EDT [facility] [address], [address] [place] [id number] Office [phone] Chief Complaint: Routine follow-up for hypertension and [...] 06/16/2011 VASCULAR SURGERY 09/02/2010 AAA repair in [place] Family History Problem Relation Name Age of [...] from the original note were not included. [employer] [facility] Assessment and Plan Mr. [...] Sedrick Reyes MD 01/25/23 3:06 PM EDT [facility] [address], [address] [place] [address] Office [phone] Chief Complaint: Routine follow-up for hypertension and [...] 06/16/2011 VASCULAR SURGERY 09/02/2010 AAA repair in [place] Family History Problem Relation Name Age of [...] component: CHOLHDLRAT, LDLHDLRAT documented in this encounter [facility] History of Present illness Narrative 03-16-2022 Sedrick Reyes MD - 03/16/2022 3:40 PM EDT Note Date & Type Note Facility 03-16-2022 History of Presen t illness Narrative Images from the original note were not included. [employer] [facility] Assessment and Plan Mr. [...] Sedrick Reyes MD 03/16/22 3:30 PM EDT [facility] [address], [address] [place] [address] Office [phone] Chief Complaint: Routine follow-up for hypertension and [...] 06/16/2011 VASCULAR SURGERY 09/02/2010 AAA repair in [place] Family History Problem Relation Name Age of [...] component: CHOLHDLRAT, LDLHDLRAT documented in this encounter [facility] History of Present illness Narrative 08-27-2021 Paulette Kidd RN - 08/27/2021 11:34 AM EST Note Date & Type Note Facility 08-27-2021 History of Presen t illness Narrative Per first monitor did not work I sent an email to [employer] to send another one documented in this encounter [facility] History of Present illness Narrative 08-21-2021 Sedrick Reyes MD - 08/21/2021 2:10 PM EST Note Date & Type Note Facility 08-21-2021 History of Presen t illness Narrative Images from the original note were not included. [employer] [facility] Assessment and Plan Jorge [...] Sedrick Reyes MD 08/21/21 2:00 PM EST [facility] [address], [address] [place] [address] Office [phone] Chief Complaint: Routine follow-up for hypertension hyperlipidemia [...] 06/16/2011 VASCULAR SURGERY 09/02/2010 AAA repair in [place] Family History Problem Relation Name Age of [...] component: CHOLHDLRAT, LDLHDLRAT documented in this encounter [facility] note Note Date & Type Note Facility Evaluation note Diagnosis Essential hypertension- Primary Unspecified essential hypertension Paroxysmal atrial fibrillation (CMS/HCC) Atrial fibrillation Mixed hyperlipidemia Right bundle branch block Obstructive sleep apnea syndrome in adult documented in this encounter [facility] Evaluation note Note Date & Type Note Facility Evaluation note Diagnosis Premature atrial contractions- Primary Supraventricular premature beats documented in this encounter [facility] note Note Date & Type Note Facility Evaluation note Diagnosis Essential hypertension- Primary Unspecified essential hypertension PAC (premature atrial contraction) Supraventricular premature beats Mixed hyperlipidemia Right bundle branch block Obstructive sleep apnea syndrome in adult documented in this encounter [facility] note Note Date & Type Note Facility Evaluation note Diagnosis RBBB (right bundle branch block)- Primary Right bundle branch block PAC (premature atrial contraction) Supraventricular premature beats Essential hypertension Unspecified essential hypertension Mixed hyperlipidemia Obstructive sleep apnea syndrome in adult documented in this encounter [facility] Evaluation note Note Date & Type Note Facility Evaluation note Diagnosis RBBB (right bundle branch block)- Primary Right bundle branch block PAC (premature atrial contraction) Supraventricular premature beats Essential hypertension Unspecified essential hypertension Mixed hyperlipidemia Obstructive sleep apnea syndrome in adult documented in this encounter [facility] Summary Purpose Family History No Family History Records FoundNo Family History Records FoundNo Family History Records Found Advance Directives No Advanced Directives Records FoundDocuments on File Type Date Recorded 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 Documents on File Type Date Recorded 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 Reason for Referral Specialty Diagnoses / Procedures Referred By Contac t Referred To Contact Cardiology Diagnoses Paroxysmal atrial fibrillation (CMS/HCC) Procedures Cardiac event monitor DE ECG EXTERNAL < 48 HOURS RECORDING DE ECG EXTERNAL < 48 HOURS SCANNING ANALYSIS W/REPORT DE ECG EXTERNAL < 48 HOURS CONTINUOUS RHYTHM RECORDING & STORAGE REVIEW & INTERPRETATION BY A PHYSICIAN/OTHER QUALIFIED HEALTH COMMISSIONING AGENT Sedrick Reyes MD [address] [place] [address] Referral ID Status Reason Start Date Expiration Date V isits Requested Visits Authorized [id number] Authorized 08/21/2021 02/17/2022 1 1 Additional Source Comments (unrecognized sect ion and content) No Status Records FoundNo Status Records FoundNo Status Records Found INFORMATION SOURCE (unrecogn ized section and content) DATE CREATED AUTHOR 10/31/2019 [facility] DATE CREATED AUTHOR AUTHOR'S ORGANIZ ATION 08/25/2021 [facility] DATE CREATED AUTHOR AUTHOR'S ORGANIZ ATION 03/19/2024 [facility] Reason for Visit (unrecogniz ed [...] Care Teams (unrecognized sec tion and content) Pharmacy Assistant Relationship Specialty Start Date End Date Griffin Moon MD [address] [place] [id number] PCP - General Family Medicine 03/17/24 FOR [...] BE BASED ON THE PRIMARY CLINICAL RECORDS. [employer] provides no warranty or guarantee of the accuracy or completeness of information in this document.
--- NOTE | 2024-11-28 16:03 | SWNOTE1 ---
FREDI did give pt's son original CASTRO form after it was reviewed with pt's and other son down in ED in pt's wifes room. FREDI did discuss lift chair with pt's family. FREDI spoke to Veronica at [facility] and she stated lift have to be done by PCP and are very hard to get approved. Family has already voiced they are going to buy out of pocket. FREDI did provide phone number and website for [facility] to pt's son. HCPOA was sent to email and is in chart now. Pt and family agreed to HH. Pt's son and reviewed list from medicare.gov for HH companies. They decided on [facility] as first choice and [facility]. Referral sent to [address] Referral included face sheet, ED note, H&P, provider notes, case management report, and PT/OT notes.
[2024-11-28 16:25] LABS: Glucometer 229 mg/dL (74-106)
[2024-11-28 21:36] LABS: Glucometer 125 mg/dL (74-106)
[2024-11-29] VITALS (9 sets, daily range): BP systolic 112–122; BP diastolic 70; PULSE 83–115; TEMP 36.4; O2SAT 91–96
[2024-11-29] MEDS: ACETAMINOPHEN 325 MG TABLET 650 MG PO (03:21)
[2024-11-29 05:46] LABS: Basophils Percent Auto 0.6 % (0.2-2.0); Eosinophils Absolute Auto 0.1 10^3/uL (0.0-0.7); Eosinophils Percent Auto 1.3 % (0.9-7.0); Hematocrit 37.8 % (42.0-54.0); Hemoglobin 12.4 g/dL (14.0-18.0); Immature Granulocytes Abs Auto 0.02 10^3/uL (0.00-0.03); Immature Granulocytes Pct Auto 0.4 % (0.0-0.5); Lymphocytes Percent Auto 18.5 % (20.5-60.0); Mean Corpuscular HGB Conc 32.8 g/dL (29.9-35.2); Mean Corpuscular Volume 91.5 fL (80.0-94.0); Mean Platelet Volume 9.9 fL (9.5-13.5); Monocytes Absolute Auto 0.8 10^3/uL (0.3-0.8); Monocytes Percent Auto 15.5 % (1.7-12.0); Neutrophils Absolute Auto 3.4 10^3/uL (1.4-6.5); Neutrophils Percent Auto 63.7 % (43.0-75.0); Platelet Count 210 10^3/uL (150-450); Red Blood Count 4.13 10^6/uL (4.70-6.10); Red Cell Distribution Width 13.9 % (11.0-15.0); White Blood Count 5.3 10^3/uL (4.0-11.0)
--- OUTSIDE RECORDS SUMMARY | 2024-11-29 05:57 | XMS_ITS | CCD ---
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 ABNORMAL [facility] 12-LEAD ([facility])on 02-19 ECG 12-LEAD (M[facility]) Sinus Rhythm -Right bundle branch block. ABNORMAL Normal [facility] ECG 12-LEAD (MIDMARK)on 07-22 ECG 12-LEAD (M[facility]) Sinus Bradycardia -occasional PAC -Right bundle branch block. ABNORMAL Normal [facility] ECG 12 lead (MIDMARK)on Sinus bradycardia -Right bundle branch block. ABNORMAL [facility] ECG 12 lead (MIDMARK)on 02-19 [facility] Sinus Rhythm -Right bundle branch block. ABNORMAL [facility] [employer] ECG 12 lead ([facility]mark)on Sinus rhythm with frequent PACs -Right bundle branch block. ABNORMAL Post-A-Vox Test Result Ejection Fractio non 10-30-2019 Test Result Ejection Fraction 56 Normal [facility] Vital Signs Date Time Vital Sign Value Performing Clinician Palmer peralta 03-17-2024 13:04-0400 Body mass index (BMI) [Ratio] 33.93 kg/m2 Sedrick Reyes MD Work Phone: [employer] 03-17-2024 13:04-0400 Body temperature 97.5 [degF] Sedrick Reyes MD Work Phone: [employer] 03-17-2024 13:04-0400 Body weight 110.36 kg Sedrick Reyes MD Work Phone: [employer] 03-17-2024 13:04-0400 Diastolic blood pressure 73 mm[Hg] Sedrick Reyes MD Work Phone: [employer] 03-17-2024 13:04-0400 Heart rate 76 /min Sedrick Reyes MD Work Phone: [employer] 03-17-2024 13:04-0400 Systolic blood pressure 137 mm[Hg] Sedrick Reyes MD Work Phone: [employer] 01-25-2023 14:54-0400 Body height 180.3 cm Sedrick Reyes MD Work Phone: [employer] 01-25-2023 14:54-0400 Body mass index (BMI) [Ratio] 32.75 kg/m2 Sedrick Reyes MD Work Phone: [employer] 01-25-2023 14:54-0400 Body temperature 97.39 [degF] Sedrick Reyes MD Work Phone: [employer] 01-25-2023 14:54-0400 Body weight 106.5 kg Sedrick Reyes MD Work Phone: [employer] 01-25-2023 14:54-0400 Diastolic blood pressure 53 mm[Hg] Sedrick Reyes MD Work Phone: [employer] 01-25-2023 14:54-0400 Heart rate 55 /min Sedrick Reyes MD Work Phone: [facility] 01-25-2023 14:54-0400 Systolic blood pressure 114 mm[Hg] Sedrick Reyes MD Work Phone: [facility] [employer] 03-16-2022 15:11-0400 Body height 177.8 cm Sedrick Reyes MD Work Phone: [employer] 03-16-2022 15:11-0400 Body mass index (BMI) [Ratio] 36.79 kg/m2 Sedrick Reyes MD Work Phone: [employer] 03-16-2022 15:11-0400 Body weight 116.3 kg Sedrick Reyes MD Work Phone: [employer] 03-16-2022 15:11-0400 Diastolic blood pressure 69 mm[Hg] Sedrick Reyes MD Work Phone: [employer] 03-16-2022 15:11-0400 Heart rate 62 /min Sedrick Reyes MD Work Phone: [facility] 03-16-2022 15:11-0400 Systolic blood pressure 131 mm[Hg] Sedrick Reyes MD Work Phone: [employer] 08-21-2021 13:37-0500 Body height 180.3 cm Sedrick Reyes MD Work Phone: [employer] 08-21-2021 13:37-0500 Body mass index (BMI) [Ratio] 35.57 kg/m2 Sedrick Reyes MD Work Phone: [employer] 08-21-2021 13:37-0500 Body temperature 98.2 [degF] Sedrick Reyes MD Work Phone: [employer] 08-21-2021 13:37-0500 Body weight 115.67 kg Sedrick Reyes MD Work Phone: [employer] 08-21-2021 13:37-0500 Diastolic blood pressure 65 mm[Hg] Sedrick Reyes MD Work Phone: [employer] 08-21-2021 13:37-0500 Heart rate 73 /min Sedrick Reyes MD Work Phone: [facility] 08-21-2021 13:37-0500 Respiratory rate 20 /min Sedrick Reyes MD Work Phone: [facility] 08-21-2021 13:37-0500 Systolic blood pressure 140 mm[Hg] Sedrick Reyes MD Work Phone: [facility] Encounters Encounter Date Encounter Type Care Provider Facility Start: 03-17-2024 End: 03-17-2024 Office outpatient visit 25 minutes Sedrick Reyes MD Work Phone: [facility] Comment on above: RBBB (right bundle b ranch block) (Primary Dx); PAC (premature atrial contraction); Essential hypertension; Mixed hyperlipidemia; Obstructive sleep apnea syndrome in adult Start: 03-17-2024 End: 03-17-2024 Patient encounter procedure Sedrick Reyes MD Work Phone: [facility] Start: 03-17-2024 End: 03-17-2024 ambulatory GRIFFIN MOON [facility] Start: 08-18-2023 End: 08-18-2023 ambulatory SEDRICK REYES [facility] Start: 01-25-2023 End: 01-25-2023 Office outpatient visit 25 minutes Sedrick Reyes MD Work Phone: [facility] Comment on above: RBBB (right bundle b ranch block) (Primary Dx); PAC (premature atrial contraction); Essential hypertension; Mixed hyperlipidemia; Obstructive sleep apnea syndrome in adult Start: 01-25-2023 End: 01-25-2023 Patient encounter procedure Sedrick Reyes MD Work Phone: [facility] Start: 03-16-2022 End: 03-16-2022 Office outpatient visit 25 minutes Sedrick Reyes MD Work Phone: [facility] Comment on above: Essential hypertensi on (Primary Dx); PAC (premature atrial contraction); Mixed hyperlipidemia; Right bundle branch block; Obstructive sleep apnea syndrome in adult Start: 03-16-2022 End: 03-16-2022 Patient encounter procedure Sedrick Reyes MD Work Phone: [facility] Start: 10-01-2021 Orders Only Sedrick Reyes MD Work Phone: [facility] Comment on above: Premature atrial con tractions (Primary Dx) Start: 10-01-2021 End: 10-01-2021 Orders Only Sedrick Reyes MD Work Phone: [facility] Start: 08-27-2021 End: 08-27-2021 Telephone encounter Paulette Kidd RN [facility] Comment on above: faulty monitor Start: 08-21-2021 End: 08-21-2021 Office outpatient visit 25 minutes Sedrick Reyes MD Work Phone: [facility] Comment on above: Essential hypertensi on (Primary Dx); Paroxysmal atrial fibrillation (CMS/HCC); Mixed hyperlipidemia; Right bundle branch block; Obstructive sleep apnea syndrome in adult Start: 08-21-2021 End: 08-21-2021 Patient encounter procedure Sedrick Reyes MD Work Phone: [facility] Start: 07-29-2021 End: 07-30-2021 ambulatory CASTRO CASTRO Facility: Start: 11-26-2020 End: 11-27-2020 ambulatory NONE LISTED REQUEST Facility:[facility] Start: 10-28-2020 End: 10-29-2020 ambulatory NONE LISTED REQUEST Facility: Procedures Date Procedure Procedure Detail Performing Clinician Start: 03-17-2024 Ecg routine ecg w/le ast 12 lds w/i&r Sedirck Reyes MD Work Phone: Start: 01-25-2023 Ecg [...] Td Vaccines (3 - Td or Tdap) [employer] Start: 03-08-2026 DTaP,Tdap,and Td Vaccines (2 - Td or Tdap) DTaP,Tdap,and Td Vaccines (2 - Td or Tdap) [employer] Start: 04-14-2024 Zoster Vaccines (2 o f 2) Zoster Vaccines (2 of 2) [employer] Start: 08-18-2023 End: 08-18-2023 Patient encounter procedure 08/18/2023 Office Visit Cardiology Sedrick Reyes MD [facility] [address] [place] [address] [facility] Start: 05-21-2023 COVID-19 Vaccine ( season) COVID-19 Vaccine ( season) [employer] [facility] Start: 01-25-2023 Diabetes: Annual Ret foreign Eye Exam Diabetes: Annual Retina Eye Exam [employer] Start: 01-25-2023 Diabetes: Annual Uri ne Albumin-Creatinine Ratio (uACR) Diabetes: Annual Urine Albumin-Creatinine Ratio (uACR) [employer] [facility] Start: 01-25-2023 Diabetic foot examination Diabetes: Annual Foot Exam [employer] [facility] Start: 01-25-2023 Hemoglobin A1c measurement Diabetes: Blood Sugar Control Test (HGBA1C) [employer] Start: 08-21-2021 End: 08-21-2022 Cardiac event monitor Cardiac event monitor Cardiac Services Routine Paroxysmal atrial fibrillation (CMS/HCC) Expected: 08/21/2021, Expires: 08/21/2022 [employer] Work Phone: Comment on above: Expected: 08/21/2021 , Expires: 08/21/2022 Start: 08-20-2021 Diabetes: Annual Ret foreign Eye Exam Diabetes: Annual Retina Eye Exam [employer] Start: 08-20-2021 Diabetic foot examination Diabetes: Annual Foot Exam [facility] Start: 08-20-2021 Hemoglobin A1c measurement Diabetes: Blood Sugar Control Test (HGBA1C) [facility] Start: 08-20-2021 Urine screening for protein Diabetes: Annual Urine Protein Test (Microalbumin) [facility] Start: 06-09-2021 Hypertension/CHF/CAD Annual BMP Blood Test Hypertension/CHF/CAD Annual BMP Blood Test [employer] [facility] Start: 05-21-2021 Influenza vaccination Influenza Vacc ine (#1) [employer] [facility] Start: 10-29-2019 Adolescent depressio n screening assessment Depression Screening [employer] [facility] Start: 10-29-2019 Falls Risk Assessment Falls Risk Ass essment [employer] [facility] Start: 10-29-2019 Lipid panel Cholesterol Sc reening (Lipid Panel) [employer] Start: 10-29-2019 Medicare Annual Wellness Visit Medicare Annual Wellness Visit [facility] Start: 10-29-2019 Social Influencers o f Health Screening Social Influencers of Health Screening [employer] [facility] Start: 1999 RSV Immunization Patients 60+ Years Old (1 - 1-dose 60+ series) RSV Immunization Patients 60+ Years Old (1 - 1-dose 60+ series) [employer] [facility] Start: 12-24-1989 Zoster Vaccines (1 o f 2) Zoster Vaccines (1 of 2) [facility] Start: 12-24-1958 Zoster Vaccines (1 o f 2) Zoster Vaccines (1 of 2) [facility] Start: 1939 Diabetes: Annual GFR (Glomerular Filtration Rate) Diabetes: Annual GFR (Glomerular Filtration Rate) [facility] Immunizations Immunization Date Immunization Notes Care Provider Fa cility 09-23-2022 Influenza Quadravale nt, 0.5ml (Fluad) 65yo and older Sedrick Reyes MD Work Phone: [employer] 11-10-2021 Influenza, high-dose , quadrivalent Sedrick Reyes MD Work Phone: [employer] 11-10-2021 Pneumococcal Conjuga te 20-Valent Sedrick Reyes MD Work Phone: [facility] 07-29-2021 Moderna SARS-CoV-2 COVID-19, mRNA, LNP-S, preservative free Sedrick Reyes MD Work Phone: [facility] 11-26-2020 Moderna SARS-CoV-2 COVID-19, mRNA, LNP-S, preservative free Sedrick Reyes MD Work Phone: [facility] 10-28-2020 Moderna SARS-CoV-2 COVID-19, mRNA, LNP-S, preservative free Sedrick Reyes MD Work Phone: [facility] 08-29-2019 influenza, high dose seasonal, preservative-free Sedrick Reyes MD Work Phone: [facility] 08-29-2019 influenza virus vacc ine, unspecified formulation Sedrick Reyes MD Work Phone: [facility] 08-18-2016 influenza, seasonal, injectable Sedrick Reyes MD Work Phone: [facility] 03-09-2016 tetanus toxoid, redu kristin diphtheria toxoid, and acellular pertussis vaccine, adsorbed Sedrick Reyes MD Work Phone: [facility] 03-08-2016 tetanus toxoid, redu kristin diphtheria toxoid, and acellular pertussis vaccine, adsorbed Sedrick Reyes MD Work Phone: [facility] 11-12-2015 pneumococcal conjuga te vaccine, 7 valent Sedrick Reyes MD Work Phone: [facility] 11-12-2015 pneumococcal polysaccharide vaccine, 23 valent Sedrick Reyes MD Work Phone: [facility] Payers Date Payer Category Payer Private Health Insurance MARYLOU CORLEY [id number] 2017-Present [address] [place] [address] [id number] 2017 Private Health Insurance MARYLOU CORLEY [id number] 2017-Present [address] [place] [address] [id number] 2017 Private Health Insurance [id number] 2004 Medicare MEDICARE MEDICAR E PART A & B [id number] 2004-Present [address] [place] [address] Medicare [id number] 2004 Medicare MEDICARE MEDICAR E PART A & B [id number] 2004-Present [address] [place] [address] Medicare [id number] 2004 Medicare [id number] 1960 Self-pay 1940 Unknown [id number] 1940 Unknown [id number] Unknown [id number] Unknown [id number] Unknown [id number] Social History Date Type Detail Facility Start: 08-21-2021 End: 08-28-2022 Tobacco smoking status VTIS Never smoker [facility] Start: 08-21-2021 End: 08-28-2022 Tobacco use and exposure Never used [facility] Start: 06-09-2021 History SDOH Alcohol Comment What is your level of alcohol consumption: Occasional [facility] Start: 1940 Sex Assigned At Not on file [facility] Start: 03-06-2022 End: 01-25-2023 Exposure to SARS-CoV-2 (event) Not sure [facility] Start: 03-16-2022 Alcohol intake Lifetime non-d shannan (finding) [facility] Start: 01-25-2023 End: 03-17-2024 Alcohol intake Ex-drinker (finding) [facility] Start: 08-28-2022 Alcohol Comment speciall occasion Tr [employer] Gender identity Not on file [facility] Medical Equipment Procedure Code Equipment Code Equipment Original Text Equi pment Identifier Dates Use as instructed [id number] Use as instructed [id number] History of Present illness Narrative 03-17-2024 Sedrick Reyes MD - 03/17/2024 1:20 PM EDT Note Date & Type Note Facility 03-17-2024 History of Presen t illness Narrative Images from the original note were not included. 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 [...] Sedrick Reyes MD 03/17/24 1:19 PM EDT [facility] [address], [address] [place] [id number] Office [phone] Chief Complaint: Routine follow-up for hypertension and [...] 06/16/2011 VASCULAR SURGERY 09/02/2010 AAA repair in [place] Family History Problem Relation Name Age of [...] from the original note were not included. 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 [...] Sedrick Reyes MD 01/25/23 3:06 PM EDT [facility] [address], [address] [place] [address] Office [phone] Chief Complaint: Routine follow-up for hypertension and [...] 06/16/2011 VASCULAR SURGERY 09/02/2010 AAA repair in [place] Family History Problem Relation Name Age of [...] component: CHOLHDLRAT, LDLHDLRAT documented in this encounter [facility] History of Present illness Narrative 03-16-2022 Sedrick Reyes MD - 03/16/2022 3:40 PM EDT Note Date & Type Note Facility 03-16-2022 History of Presen t illness Narrative Images from the original note were not included. 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 [...] Sedrick Reyes MD 03/16/22 3:30 PM EDT [facility] [address], [address] [place] [address] Office [phone] Chief Complaint: Routine follow-up for hypertension and [...] 06/16/2011 VASCULAR SURGERY 09/02/2010 AAA repair in [place] Family History Problem Relation Name Age of [...] component: CHOLHDLRAT, LDLHDLRAT documented in this encounter [facility] History of Present illness Narrative 08-27-2021 Paulette Kidd RN - 08/27/2021 11:34 AM EST Note Date & Type Note Facility 08-27-2021 History of Presen t illness Narrative Per first monitor did not work I sent an email to [employer] to send another one documented in this encounter [facility] History of Present illness Narrative 08-21-2021 Sedrick Reyes MD - 08/21/2021 2:10 PM EST Note Date & Type Note Facility 08-21-2021 History of Presen t illness Narrative Images from the original note were not included. 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 [facility] Assessment and Plan Jorge [...] Sedrick Reyes MD 08/21/21 2:00 PM EST [facility] [address], [address] [place] [address] Office [phone] Chief Complaint: Routine follow-up for hypertension hyperlipidemia [...] 06/16/2011 VASCULAR SURGERY 09/02/2010 AAA repair in [place] Family History Problem Relation Name Age of [...] LDLHDLRAT documented in this encounter [facility] note Note Date & Type Note Facility Evaluation note Diagnosis Essential hypertension- Primary Unspecified essential hypertension Paroxysmal atrial fibrillation (CMS/HCC) Atrial fibrillation Mixed hyperlipidemia Right bundle branch block Obstructive sleep apnea syndrome in adult documented in this encounter [facility] Evaluation note Note Date & Type Note Facility Evaluation note Diagnosis Premature atrial contractions- Primary Supraventricular premature beats documented in this encounter [facility] note Note Date & Type Note Facility Evaluation note Diagnosis Essential hypertension- Primary Unspecified essential hypertension PAC (premature atrial contraction) Supraventricular premature beats Mixed hyperlipidemia Right bundle branch block Obstructive sleep apnea syndrome in adult documented in this encounter [facility] note Note Date & Type Note Facility Evaluation note Diagnosis RBBB (right bundle branch block)- Primary Right bundle branch block PAC (premature atrial contraction) Supraventricular premature beats Essential hypertension Unspecified essential hypertension Mixed hyperlipidemia Obstructive sleep apnea syndrome in adult documented in this encounter [facility] Evaluation note Note Date & Type Note Facility Evaluation note Diagnosis RBBB (right bundle branch block)- Primary Right bundle branch block PAC (premature atrial contraction) Supraventricular premature beats Essential hypertension Unspecified essential hypertension Mixed hyperlipidemia Obstructive sleep apnea syndrome in adult documented in this encounter [facility] Summary Purpose Family History No Family History Records FoundNo Family History Records FoundNo Family History Records Found Advance Directives No Advanced Directives Records FoundDocuments on File Type Date Recorded 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 Documents on File Type Date Recorded 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 Reason for Referral Specialty Diagnoses / Procedures Referred By Contac t Referred To Contact Cardiology Diagnoses Paroxysmal atrial fibrillation (CMS/HCC) Procedures Cardiac event monitor [place] ECG EXTERNAL < 48 HOURS RECORDING [place] ECG EXTERNAL < 48 HOURS SCANNING ANALYSIS W/REPORT [place] ECG EXTERNAL < 48 HOURS CONTINUOUS RHYTHM RECORDING & STORAGE REVIEW & INTERPRETATION BY A PHYSICIAN/OTHER QUALIFIED HEALTH SUPERVISOR PRESS ROOM Sedrick Reyes MD [address] [facility] [address] [place] [address] Referral ID Status Reason Start Date Expiration Date V isits Requested Visits Authorized [id number] Authorized 08/21/2021 02/17/2022 1 1 Additional Source Comments (unrecognized sect ion and content) No Status Records FoundNo Status Records FoundNo Status Records Found INFORMATION SOURCE (unrecogn ized section and content) DATE CREATED AUTHOR 10/31/2019 [facility] DATE CREATED AUTHOR AUTHOR'S ORGANIZ ATION 08/25/2021 [facility] DATE CREATED AUTHOR AUTHOR'S ORGANIZ ATION 03/19/[address] 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 [employer] provides no warranty or guarantee of the accuracy or completeness of information in this document.
[2024-11-29] MEDS: NYSTATIN 15 GM POWDER 1 APPLIC TOPICAL ×2 (05:58→11:22)
[2024-11-29 06:14] LABS: Alanine Aminotransferase 28 U/L (16-63); Albumin Globulin Ratio 0.9; Albumin Level 2.9 g/dL (3.4-5.0); Alkaline Phosphatase 91 U/L (46-116); Anion Gap 16.1; Aspartate Amino Transferase 40 U/L (15-37); BUN Creatinine Ratio 15.7; Bilirubin Total 1.2 mg/dL (0.2-1.0); Calcium 8.4 mg/dL (8.5-10.1); Carbon Dioxide 20.4 mmol/L (21.0-32.0); Chloride 103 mmol/L (98-107); Estimated GFR (African America >60 (>=60 mL/min/1.73m^2); Estimated GFR (Non-African Ame 51 (>=60 mL/min/1.73m^2); Globulin 3.2 g/dL; Glucose 157 mg/dL (74-106); Potassium 4.5 mmol/L (3.5-5.1); Sodium 135 mmol/L (136-145); Total Protein 6.1 g/dL (6.4-8.2)
[2024-11-29 07:29] LABS: Glucometer 133 mg/dL (74-106)
[2024-11-29] MEDS: METOPROLOL SUCCINATE 50 MG TAB.ER.24H PO (08:37)
--- NOTE | 2024-11-29 10:34 | PM.DS1 ---
DS: Providers Provider Date of admission: 11/27/24 13:18 Primary care physician: Non-Staff Physician, Consults: 11/27/24 12:22 Physical Therapy Eval and Treat Routine Reason for consultation: Ambulatory dysfunction/weakness 11/28/24 Occupational Therapy Eval and Treat Routine Reason for consultation: eval DS: Diagnosis Discharge Diagnosis (1) Atrial fibrillation with RVR: (2) Type 2 myocardial infarction: (3) Influenza A: (4) PANDA (acute kidney injury): (5) Type 2 diabetes mellitus: Qualifiers: Diabetes mellitus nursing home insulin use: without nursing home use Diabetes mellitus complication status: without complication Qualified Code(s): E11.9 - Type 2 diabetes mellitus without complications (6) HTN (hypertension): Qualifiers: Hypertension type: primary hypertension Qualified Code(s): I10 - Essential (primary) hypertension DS: Summary Hospital Course Hospital Course: Reason for admission: See ER note and H&P for details. 83 y/o male to ER with weakness. C/o cough and congestion for several days. Fell week prior and pain in hip and gluteal region. Called EMS and found rapid afib. Given 10 mg IV cardizem and brought to ER. EKG again showed rapid afib and given 20 mg IV then started drip. Positive for influenza A. Troponin elevated at 94 then 95. Admited for treatment. Hospital course: Initially on cardizem drip. Troponin elevated due to type 2 MO related to arrythmia. Increased oral toprol and able to wean drip. Resumed home medication. Started PT/OT for weakness. Able to wean off cardizem and remained in afib. Developed mild tachycardia with exertion but would improve at rest. Strength improved and ambulating with walker. Mild cough and SOB but improved. Afebrile. Discharged home in stable condition. Will take increased dose metoprolol and start Eliquis. Reports scheduled with cardiology in 2 weeks. Resume other medication as directed. Follow in office in 1-2 weeks. Time Spent with Patient Time attestation: Total time spent providing and/or coordinating discharge services: Time spent: greater than 30 minutes Exam Constitutional Vital Signs, click to edit/add: Last Vital Signs Temp 97.6 F 11/29/24 07:30 Pulse 112 H 11/29/24 10:00 Resp 16 11/29/24 07:30 BP 112/70 11/29/24 07:30 Pulse Ox 93 L 11/29/24 07:30 O2 Del Method Room Air 11/29/24 07:30 O2 Flow Rate 2 11/28/24 17:26 Documenting provider has reviewed patient's vital signs: yes Common normals: no apparent distress, oriented x3 and alert HENMT Common normals: normocephalic Eye Common normals: PERRL and EOMs intact bilaterally Respiratory Common normals: normal respiratory effort and clear to auscultation bilaterally Cardio Common normals: regular rate, no gallops, no murmurs and no rub Rhythm: abnormal rhythm irregularly irregular GI Common normals: Normal to inspection, nondistended, normoactive bowel sounds present and non-tender Extremity Common normals: no pedal edema DS: Data Data Completed and Pending Labs on day of discharge: Labs from last 24 hours 11/29/24 11/29/24 11/28/24 07:26 05:37 21:32 WBC 5.3 RBC 4.13 L Hgb 12.4 L Hct 37.8 L MCV 91.5 MCH 30.0 MCHC 32.8 RDW 13.9 Plt Count 210 MPV 9.9 Neut % (Auto) 63.7 Lymph % (Auto) 18.5 L [place] % (Auto) 15.5 H Eos % (Auto) 1.3 Baso % (Auto) 0.6 Neut # (Auto) 3.4 Lymph # (Auto) 1.0 L [place] # (Auto) 0.8 Eos # (Auto) 0.1 Baso # (Auto) 0.0 Abs Immat Gran (auto) 0.02 Imm/Tot Granulo (auto) 0.4 Sodium 135 L Potassium 4.5 Chloride 103 Carbon Dioxide 20.4 L Anion Gap 16.1 BUN 21.0 H Creatinine 1.34 H Est GFR ( Amer) >60 Est GFR (Non-Af Amer) 51 L BUN/Creatinine Ratio 15.7 Glucose 157 H Calcium 8.4 L Total Bilirubin 1.2 H AST 40 H ALT 28 Alkaline Phosphatase 91 Total Protein 6.1 L Albumin 2.9 L Globulin 3.2 Albumin/Globulin Ratio 0.9 POC Glucose 133 H 125 H 11/28/24 11/28/24 16:21 12:23 WBC RBC Hgb Hct MCV MCH MCHC RDW Plt Count MPV Neut % (Auto) Lymph % (Auto) [place] % (Auto) Eos % (Auto) Baso % (Auto) Neut # (Auto) Lymph # (Auto) [place] # (Auto) Eos # (Auto) Baso # (Auto) Abs Immat Gran (auto) Imm/Tot Granulo (auto) Sodium Potassium Chloride Carbon Dioxide Anion Gap BUN Creatinine Est GFR ( Amer) Est GFR (Non-Af Amer) BUN/Creatinine Ratio Glucose Calcium Total Bilirubin AST ALT Alkaline Phosphatase Total Protein Albumin Globulin Albumin/Globulin Ratio POC Glucose 229 H 120 H Discharge Plan Discharge Disposition: Home Health Service Condition: Fair Discharge Medications: New metoprolol succinate 50 mg Tablet Extended Release 24 Hr 50 mg PO BID Qty: 60 0RF Eliquis 5 mg tablet 5 mg PO BID Qty: 60 0RF Continued Janumet 50-500 mg tablet 1 tab PO BID atorvastatin 40 mg tablet 40 mg PO DAILY amlodipine-benazepril 5-10 mg capsule 1 cap PO DAILY Discontinued metoprolol succinate 50 mg tablet extended release 24 hr 50 mg PO DAILY Activity: resume usual activities as tolerated Diet: advance to your usual diet Print Language: Austrian Patient Instructions: Apixaban (By mouth) (Eliquis), A-fib (Atrial Fibrillation) (DC), Influenza (DC), Blood Thinners (GEN) Forms: Portal Instructions Follow Up Appointments: Dr Sutton WednesdayDecember 08 at 11:45. [address] [facility]. [phone]
--- NOTE | 2024-11-29 10:40 | CM.NOTE ---
Rounds made with Dr. Sutton. Plan for discharge today. Eliquis card given to Mr. Powell to give to Pharmacy for 30 day trial. Follow up with Cardiology (has appointment in a few weeks). Follow up with Dr. Sutton in one week. Verbalizes understanding.
[2024-11-29] MEDS: INSULIN ASPART 300 UNIT/3 ML PEN SUBQ (11:21)
[2024-11-29 11:25] LABS: Glucometer 264 mg/dL (74-106)
--- NOTE | 2024-11-29 11:37 | CM.NOTE ---
11/29/[address] [phone] & spoke to Maren and they do not see a referral for Jorge but they do have the referral for his . Refaxed referral information on Jorge and included CRF, Discharge summary and home Med rec list.
--- NOTE | 2024-11-29 12:15 | CM.NOTE ---
11/29/24 12:13 Spoke to Ayah at [address] and they are accepting both Jorge and his , Palmer. [facility] will contact them in order to set up a date for visit.
--- NOTE | 2024-11-30 13:08 | CM.DCFOLLOWU ---
Person spoke with:patient How are you feeling? much better How is your pain? none Did you understand your discharge instructions? yes Do you have any questions about your discharge instructions? no Were you given any prescriptions at discharge? yes Were you able to get your prescriptions filled?yes Do you understand how to take your medications as ordered?yes Do you have any questions about your follow up appointment and do you plan to keep your follow up appointment? no questions, reviewed follow up Is there anything else that you would like to discuss? no Questions/Comments/Concerns/Other: no
== END 2024-11-29 12:15 | disposition home health service (06) ==
LOC: ER 12:20 → ICU 11-28 12:24 → MS 11-29 10:30 → ICU 11-30 08:38 → MS 11-30 08:38
PROVIDERS: Admitting Provider Internal Medicine; Emergency Provider Emergency Medicine; Visit Provider Family Medicine
DX: I48.91 Unspecified atrial fibrillation (principal); I10 Essential (primary) hypertension; E78.5 Hyperlipidemia, unspecified; R06.02 Shortness of breath; N17.9 Acute kidney failure, unspecified; I21.A1 Myocardial infarction type 2; R21 Rash and other nonspecific skin eruption; J10.1 Influenza due to other identified influenza virus with other respiratory manifestations; E11.9 Type 2 diabetes mellitus without complications; Z79.84 Long term (current) use of oral hypoglycemic drugs; Z91.81 History of falling; M25.551 Pain in right hip
CPT/HCPCS: 36415; 71045; 73502; 80048; 80053; 82948; 83735; 84443; 84484; 85025; 85610; 85730; 87804; 87811; 93005; 93306; 94761; 96365; 96366; 96372; 96375; 96376; 97110; 97116; 97161; 97165; 97535; 99285; G0378; J1650

== ENCOUNTER 2024-12-18 11:59 | Inpatient (IN) | payer MEDICARE, OTHER, SELFPAY ==
[2024-12-18] VITALS (53 sets, daily range): BP systolic 99–152; BP diastolic 57–91; PULSE 79–151; TEMP 36.4–36.6; O2SAT 79–97; BMI 34.1; BMI 35.0
--- NOTE | 2024-12-18 12:09 | ECG_ITS ---
[facility] Test Date: 2024-12-18 Pat Name: ISAMAR MACHUCA Department: Room: - Gender: Male [employer] Dean: : 1940 Requested By: 1030 Order Number: [id number] Reading MD: KAROLYN HERRERA M.D. Measurements Intervals [place] Rate: 145 P: -28255 [place]: -46117 QRS: 69 QRSD: 134 T: 39 QT: 358 QTc: 442 Interpretive Statements 42724 Atrial fibrillation with rapid ventricular response 2450 Right bundle branch block 3434 Septal myocardial infarction, age undetermined 42980 Twave abnormality, possible anterior ischemia or digitalis effect 9150 abnormal ECG Compared to ECG 11/27/2024 10:32:38 Right bundle-branch block now present Aberrant conduction of supraventricular beat(s) no longer present Electronically Signed On 12-18-2024 20:27:51 EDT by KAROLYN HERRERA M.D.
--- NOTE | 2024-12-18 12:10 | ED.GENADUL1 ---
HPI HPI - General Adult General Chief complaint: Extremity Problem, Nontraumatic Stated complaint: LEGS SWELLING Time Seen by Provider: 12/18/24 12:01 Source: patient Mode of arrival: Wheelchair Limitations: no limitations History of Present Illness HPI narrative: 83-year-old male presents for some redness in his legs. He states he is being treated for skin infection and he is on doxycycline. It was prescribed by his family doctor but his family doctor is out of the office for a month. At triage she was noted to have a fast heartbeat. Earlier this month he was diagnosed with new onset A-fib with RVR. No fever or vomiting. He does not complain of chest pain or palpitations. Related Data Home Medications ?Medication ?Instructions ?Recorded ?Confirmed amlodipine 5 mg-benazepril 10 mg 1 cap PO DAILY 11/27/24 12/18/24 capsule atorvastatin 40 mg tablet 40 mg PO DAILY 11/27/24 11/27/24 sitagliptin phosphate 50 1 tab PO BID 11/27/24 12/18/24 mg-metformin 500 mg tablet (Janumet) doxycycline hyclate 100 mg tablet mg 12/18/24 furosemide 40 mg tablet mg 12/18/24 Previous Rx's ?Medication ?Instructions ?Recorded apixaban 5 mg tablet (Eliquis) 5 mg PO BID #60 tabs 11/29/24 metoprolol succinate 50 mg 50 mg PO BID #60 tabs 11/29/24 tablet,extended release 24 hr Allergies Allergy/AdvReac Type Severity Reaction Status Date / Time No Known Drug Allergies Allergy Verified 11/27/24 10:36 Opioid HPI Opioid Management Most Recent Opioid Data: Last Pain Scale 2 11/29/24 11:08 11/29/24 Last Pain Intensity 2 11/29/24 11:08 11/29/24 Last ORT Total Score 0 11/27/24 13:39 11/27/24 Last ORT Risk Category Low Risk 11/27/24 13:39 11/27/24 Review of Systems ROS Narrative A ten point review of systems is negative except as noted above. [facility] Medical History (Updated 12/18/24 @ 13:22 by Chucky Wood MD) Type 2 diabetes mellitus ?E11.9 - Type 2 diabetes mellitus without complications (ICD-10) HTN (hypertension) ?I10 - Essential (primary) hypertension (ICD-10) Atrial fibrillation with RVR ?I48.91 - Unspecified atrial fibrillation (ICD-10) Elevated troponin level not due myocardial infarction ?R79.89 - Other specified abnormal findings of blood chemistry (ICD-10) HLD (hyperlipidemia) ?E78.5 - Hyperlipidemia, unspecified (ICD-10) Colon cancer ?C18.9 - Malignant neoplasm of colon, unspecified (ICD-10) Colon cancer ?C18.9 - Malignant neoplasm of colon, unspecified (ICD-10) Social History Little interest or pleasure in doing things: not at all Feeling down, depressed, or hopeless: not at all Exam Narrative Exam Narrative: Nurses note and vital signs reviewed and patient is not hypoxic. General: The patient appears in no apparent distress. Skin: Warm, dry, no pallor noted. There is no rash noted. Head: Normocephalic, atraumatic Eye: Normal conjunctiva, no drainage Ears, Nose, Mouth, and Throat: oral mucosa is moist. Nares patent. Cardiovascular: Irregular and tachycardic Respiratory: Patient is in no distress, no accessory muscle use, lungs are clear to auscultation, no wheezing, rales or rhonchi Back: non-tender GI: Soft and nontender Musculoskeletal: Both lower extremities have confluent areas of erythema but it is not warm to the touch and there is no drainage Neurological: A&O, normal speech Psychiatric: Cooperative Constitutional Vital Signs, click to edit/add: Last Vital Signs Temp 97.5 F L 12/18/24 12:03 Pulse 99 H 12/18/24 13:00 Resp 28 H 12/18/24 13:00 BP 113/79 12/18/24 13:00 Pulse Ox 97 12/18/24 13:00 O2 Del Method Room Air 12/18/24 12:03 Course Vital Signs Vital signs: Vital Signs Temperature 97.5 F L 12/18/24 12:03 Pulse Rate 87 12/18/24 12:03 Respiratory Rate 18 12/18/24 12:03 Blood Pressure 113/85 12/18/24 12:03 Pulse Oximetry 96 12/18/24 12:03 Oxygen Delivery Method Room Air 12/18/24 12:03 Temperature 97.5 F L 12/18/24 12:03 Pulse Rate 99 H 12/18/24 13:00 Respiratory Rate 28 H 12/18/24 13:00 Blood Pressure 113/79 12/18/24 13:00 Pulse Oximetry 97 12/18/24 13:00 Oxygen Delivery Method Room Air 12/18/24 12:03 Medical Decision Making MDM Narrative Medical decision making narrative: The patient presented with atrial fibrillation with RVR. He was given IV Cardizem bolus and then placed on a drip and his heart rate is now appropriate. Chest x-ray per radiologist shows lower lobe infiltrates, consistent with infection. CT scan of his chest is pending. He was given IV Rocephin and Zithromax and is being admitted. Findings are discussed with the patient. Differential Diagnosis Differential Diagnosis: Atrial fibrillation, pneumonia, cellulitis Medical Records Medical records reviewed: Yes I reviewed the patient's medical records Lab Data Lab results reviewed: Yes I reviewed the patient's lab results Labs: Lab Results 12/18/24 Range/Units 12:14 WBC 6.9 (4.0-11.0) 10^3/uL RBC 4.25 L (4.70-6.10) 10^6/uL Hgb 12.6 L (14.0-18.0) g/dL Hct 38.5 L (42.0-54.0) % MCV 90.6 (80.0-94.0) fL MCH 29.6 (25.9-34.0) pg MCHC 32.7 (29.9-35.2) g/dL RDW 13.9 (11.0-15.0) % Plt Count 315 (150-450) 10^3/uL MPV 10.1 (9.5-13.5) fL Neut % (Auto) 68.8 (43.0-75.0) % Lymph % (Auto) 17.0 L (20.5-60.0) % [place] % (Auto) 11.6 (1.7-12.0) % Eos % (Auto) 1.3 (0.9-7.0) % Baso % (Auto) 1.0 (0.2-2.0) % Neut # (Auto) 4.8 (1.4-6.5) 10^3/uL Lymph # (Auto) 1.2 (1.2-3.8) 10^3/uL [place] # (Auto) 0.8 (0.3-0.8) 10^3/uL Eos # (Auto) 0.1 (0.0-0.7) 10^3/uL Baso # (Auto) 0.1 (0.0-0.1) 10^3/uL Abs Immat Gran (auto) 0.02 (0.00-0.03) 10^3/uL Imm/Tot Granulo (auto) 0.3 (0.0-0.5) % Sodium 136 (136-145) mmol/L Potassium 4.3 (3.5-5.1) mmol/L Chloride 103 (98-107) mmol/L Carbon Dioxide 23.7 (21.0-32.0) mmol/L Anion Gap 13.6 BUN 18.0 (7.0-18.0) mg/dL Creatinine 1.48 H (0.70-1.30) mg/dL Est GFR ( Amer) 55 L (>=60 mL/min/1.73m^2) Est GFR (Non-Af Amer) 45 L (>=60 mL/min/1.73m^2) BUN/Creatinine Ratio 12.2 Glucose 208 H (74-106) mg/dL Lactate 2.1 H* (0.4-2.0) mmol/L Calcium 9.2 (8.5-10.1) mg/dL Magnesium 1.3 L (1.8-2.4) mg/dL Troponin I High Sens 55.7 (4.0-76.1) pg/mL Imaging Data Chest x-ray: Radiologist's impression: Bilateral basilar infiltrates consistent with infectious process, worsened from prior ECG Data Attestation: I personally reviewed and interpreted this ECG as follows: (EKG on my interpretation shows atrial fibrillation with a rate of 145) Critical Care Time Critical Care Time Critical Care Time: Yes Total Critical Care Time: 45 Attestation: Due to the high probability of sudden and clinically significant deterioration in the patient's condition he/she required the highest level of my preparedness to intervene urgently I provided critical care time including documentation time, medication orders and management, reevaluation, vital sign assessment, ordering and reviewing of lab tests, ordering and reviewing of x-ray studies, and admission orders. Aggregate critical care time is 45 minutes including only time during which I was engaged in work directly related to his/her care and did not include time spent treating other patients simultaneously. Discharge Plan Discharge Chief Complaint: Extremity Problem, Nontraumatic Clinical Impression: Atrial fibrillation with RVR, Left lower lobe pulmonary infiltrate, Right lower lobe pulmonary infiltrate Patient Disposition: Admitted As Inpatient Time of Disposition Decision: 13:22 Condition: Fair
[2024-12-18] MEDS: DILTIAZEM HCL 25 MG/5 ML VIAL 20 MG IV (12:15)
--- NOTE | 2024-12-18 12:25 | PC.NURSE ---
pt c/o swelling and redness bilateral lower extremities. pt states on antibiotics, no improvement to legs. Hx of Afib RVR, pt states slightly SOB.
[2024-12-18 12:31] LABS: Basophils Absolute Auto 0.1 10^3/uL (0.0-0.1); Eosinophils Absolute Auto 0.1 10^3/uL (0.0-0.7); Eosinophils Percent Auto 1.3 % (0.9-7.0); Hematocrit 38.5 % (42.0-54.0); Hemoglobin 12.6 g/dL (14.0-18.0); Immature Granulocytes Abs Auto 0.02 10^3/uL (0.00-0.03); Immature Granulocytes Pct Auto 0.3 % (0.0-0.5); Lymphocytes Absolute Auto 1.2 10^3/uL (1.2-3.8); Mean Corpuscular HGB Conc 32.7 g/dL (29.9-35.2); Mean Corpuscular Hemoglobin 29.6 pg (25.9-34.0); Mean Corpuscular Volume 90.6 fL (80.0-94.0); Mean Platelet Volume 10.1 fL (9.5-13.5); Monocytes Absolute Auto 0.8 10^3/uL (0.3-0.8); Monocytes Percent Auto 11.6 % (1.7-12.0); Neutrophils Absolute Auto 4.8 10^3/uL (1.4-6.5); Neutrophils Percent Auto 68.8 % (43.0-75.0); Platelet Count 315 10^3/uL (150-450); Red Blood Count 4.25 10^6/uL (4.70-6.10); Red Cell Distribution Width 13.9 % (11.0-15.0); White Blood Count 6.9 10^3/uL (4.0-11.0)
[2024-12-18 12:54] LABS: Anion Gap 13.6; BUN Creatinine Ratio 12.2; Calcium 9.2 mg/dL (8.5-10.1); Carbon Dioxide 23.7 mmol/L (21.0-32.0); Chloride 103 mmol/L (98-107); Estimated GFR (African America 55 (>=60 mL/min/1.73m^2); Estimated GFR (Non-African Ame 45 (>=60 mL/min/1.73m^2); Glucose 208 mg/dL (74-106); Potassium 4.3 mmol/L (3.5-5.1); Sodium 136 mmol/L (136-145); Troponin I High Sensitivity 55.7 pg/mL (4.0-76.1)
[2024-12-18] MEDS: CEFTRIAXONE 1,000 MG in 0.9 % SODIUM CHLORIDE 50 ML 100 MG IV (12:56)
[2024-12-18] MEDS: dilTIAZem HCL 125 MG in 0.9 % SODIUM CHLORIDE 100 ML IV (12:57)
[2024-12-18 12:59] LABS: Magnesium 1.3 mg/dL (1.8-2.4)
[2024-12-18 13:00] LABS: Lactate/Lactic Acid 2.1 mmol/L (0.4-2.0)
[2024-12-18] MEDS: AZITHROMYCIN 500 MG in 0.9 % SODIUM CHLORIDE 250 ML 250 MG IV (14:23)
[2024-12-18 15:17] LABS: Lactate/Lactic Acid 2.5 mmol/L (0.4-2.0)
[2024-12-18 15:18] LABS: Troponin I High Sensitivity 56.8 pg/mL (4.0-76.1)
--- OUTSIDE RECORDS SUMMARY | 2024-12-18 16:03 | XMS_ITS | CCD ---
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 Name Role Phone Unavailable Primary Care Provider David e REQUEST, NONE LISTED Admitting Unavaila ble REQUEST, NONE LISTED Attending Unavaila ble REQUEST, NONE LISTED Consulting Unavaila ble REQUEST, NONE LISTED Admitting Unavaila ble REQUEST, NONE LISTED Attending Unavaila ble CASTRO CASTRO Consulting Unavailable GLORIA, CASTRO Consulting Unavailable CASTRO CASTRO Admitting Unavailable CASTRO CASTRO Attending Unavailable Unavailable Primary Care Provider David Moon MD, [place] Primary Care Provider SEDRICK REYES Attending GRIFFIN Faye Primary Care Unavailable SEDRICK REYES Attending Unavailable JUSTO PARK Attending Unavailable Medications Current Medications Medication Drug [...] Test Name Value Interpretation Reference Range [facility]il [facility] ECG 12 lead (Midmark)on 02-19 Sinus Rhythm -Right bundle branch block. ABNORMAL [facility] 12-LEAD (MIDMARK)on 02-19 ECG 12-LEAD (MIDMARK) Sinus Rhythm -Right bundle branch block. ABNORMAL Normal [facility] ECG 12-LEAD (MIDMARK)on 07-22 ECG 12-LEAD (MIDMARK) Sinus Bradycardia -occasional PAC -Right bundle branch block. ABNORMAL Normal [facility] ECG 12 lead (MIDMARK)on Sinus bradycardia -Right bundle branch block. ABNORMAL [facility] ECG 12 lead (MIDMARK)on 02-19 [facility] Sinus Rhythm -Right bundle branch block. ABNORMAL [facility] ECG 12 lead (Midmark)on Sinus rhythm with frequent PACs -Right bundle branch block. ABNORMAL [facility] Test Result Ejection Fractio non 10-30-2019 Test Result Ejection Fraction [address] [facility] Vital Signs Date Time Vital Sign Value Performing Clinician Palmer peralta 03-17-2024 13:04-0400 Body mass index (BMI) [Ratio] 33.93 kg/m2 Sedrick Reyes MD Work Phone: [facility] 03-17-2024 13:04-0400 Body temperature 97.5 [degF] Sedrick Reyes MD Work Phone: [facility] 03-17-2024 13:04-0400 Body weight 110.36 kg Sedrick Reyes MD Work Phone: [facility] 03-17-2024 13:04-0400 Diastolic blood pressure 73 mm[Hg] Sedrick Reyes MD Work Phone: [facility] 03-17-2024 13:04-0400 Heart rate 76 /min Sedrick Reyes MD Work Phone: [facility] 03-17-2024 13:04-0400 Systolic blood pressure 137 mm[Hg] Sedrick Reyes MD Work Phone: [facility] 01-25-2023 14:54-0400 Body height 180.3 cm Sedrick Reyes MD Work Phone: [facility] 01-25-2023 14:54-0400 Body mass index (BMI) [Ratio] 32.75 kg/m2 Sedrick Reyes MD Work Phone: [facility] 01-25-2023 14:54-0400 Body temperature 97.39 [degF] Sedrick Reyes MD Work Phone: [facility] 01-25-2023 14:54-0400 Body weight 106.5 kg Sedrick Reyes MD Work Phone: [facility] 01-25-2023 14:54-0400 Diastolic blood pressure 53 mm[Hg] Sedrick Reyes MD Work Phone: [facility] 01-25-2023 14:54-0400 Heart rate 55 /min Sedrick Reyes MD Work Phone: [facility] 01-25-2023 14:54-0400 Systolic blood pressure 114 mm[Hg] Sedrick Reyes MD Work Phone: [facility] 03-16-2022 15:11-0400 Body height 177.8 cm Sedrick Reyes MD Work Phone: [facility] 03-16-2022 15:11-0400 Body mass index (BMI) [Ratio] 36.79 kg/m2 Sedrick Reyes MD Work Phone: [facility] 03-16-2022 15:11-0400 Body weight 116.3 kg Sedrick Reyes MD Work Phone: [facility] 03-16-2022 15:11-0400 Diastolic blood pressure 69 mm[Hg] Sedrick Reyes MD Work Phone: [facility] 03-16-2022 15:11-0400 Heart rate 62 /min Sedrick Reyes MD Work Phone: [facility] 03-16-2022 15:11-0400 Systolic blood pressure 131 mm[Hg] Sedrick Reyes MD Work Phone: [facility] 08-21-2021 13:37-0500 Body height 180.3 cm Sedrick Reyes MD Work Phone: [facility] 08-21-2021 13:37-0500 Body mass index (BMI) [Ratio] 35.57 kg/m2 Sedrick Reyes MD Work Phone: [facility] 08-21-2021 13:37-0500 Body temperature 98.2 [degF] Sedrick Reyes MD Work Phone: [facility] 08-21-2021 13:37-0500 Body weight 115.67 kg Sedrick Reyes MD Work Phone: [facility] 08-21-2021 13:37-0500 Diastolic blood pressure 65 mm[Hg] Sedrick Reyes MD Work Phone: [facility] 08-21-2021 13:37-0500 Heart rate 73 /min Sedrick Reyes MD Work Phone: [facility] 08-21-2021 13:37-0500 Respiratory rate 20 /min Sedrick Reyes MD Work Phone: [facility] 08-21-2021 13:37-0500 Systolic blood pressure 140 mm[Hg] Sedrick Reyes MD Work Phone: [facility] Encounters Encounter Date Encounter Type Care Provider Facility Start: 12-11-2024 ambulatory Facility:[facility] Start: 12-08-2024 End: 12-08-2024 ambulatory JUSTO PARK Not Available Start: 03-17-2024 End: 03-17-2024 Office outpatient visit 25 minutes Sedrick Reyes MD Work Phone: [facility] Comment on above: RBBB (right bundle b ranch block) (Primary Dx); PAC (premature atrial contraction); Essential hypertension; Mixed hyperlipidemia; Obstructive sleep apnea syndrome in adult Start: 03-17-2024 End: 03-17-2024 Patient encounter procedure Sedrick Reyes MD Work Phone: [facility] Start: 03-17-2024 End: 03-17-2024 ambulatory GRIFFIN MOON [facility] Start: 08-18-2023 End: 08-18-2023 ambulatory SEDRICK REYES [facility] Start: 01-25-2023 End: 01-25-2023 Office outpatient visit 25 minutes Sedrick Reyes MD Work Phone: [facility] Comment on above: RBBB (right bundle b ranch block) (Primary Dx); PAC (premature atrial contraction); Essential hypertension; Mixed hyperlipidemia; Obstructive sleep apnea syndrome in adult Start: 01-25-2023 End: 01-25-2023 Patient encounter procedure Sedrick Reyes MD Work Phone: [facility] Start: 03-16-2022 End: 03-16-2022 Office outpatient visit 25 minutes Sedrick Reyes MD Work Phone: [facility] Comment on above: Essential hypertensi on (Primary Dx); PAC (premature atrial contraction); Mixed hyperlipidemia; Right bundle branch block; Obstructive sleep apnea syndrome in adult Start: 03-16-2022 End: 03-16-2022 Patient encounter procedure Sedrick Reyes MD Work Phone: [facility] Start: 10-01-2021 Orders Only Sedrick Reyes MD Work Phone: [facility] Comment on above: Premature atrial con tractions (Primary Dx) Start: 10-01-2021 End: 10-01-2021 Orders Only Sedrick Reyes MD Work Phone: [facility] Start: 08-27-2021 End: 08-27-2021 Telephone encounter Paulette Kidd RN [facility] Comment on above: faulty monitor Start: 08-21-2021 End: 08-21-2021 Office outpatient visit 25 minutes Sedrick Reyes MD Work Phone: [facility] Comment on above: Essential hypertensi on (Primary Dx); Paroxysmal atrial fibrillation (CMS/HCC); Mixed hyperlipidemia; Right bundle branch block; Obstructive sleep apnea syndrome in adult Start: 08-21-2021 End: 08-21-2021 Patient encounter procedure Sedrick Reyes MD Work Phone: [facility] Start: 07-29-2021 End: 07-30-2021 ambulatory CASTRO CASTRO Facility:[facility] Start: 11-26-2020 End: 11-27-2020 ambulatory NONE LISTED REQUEST Facility: Start: 10-28-2020 End: 10-29-2020 ambulatory NONE LISTED [...] Td Vaccines (3 - Td or Tdap) [facility] Start: 03-08-2026 DTaP,Tdap,and Td Vaccines (2 - Td or Tdap) DTaP,Tdap,and Td Vaccines (2 - Td or Tdap) [facility] Start: 04-14-2024 Zoster Vaccines (2 o f 2) Zoster Vaccines (2 of 2) [facility] Start: 08-18-2023 End: 08-18-2023 Patient encounter procedure 08/18/2023 Office Visit Cardiology Sedrick Reyes MD [place] [address] [place] [address] [facility] Start: 05-21-2023 COVID-19 Vaccine ( season) COVID-19 Vaccine () [facility] Start: 01-25-2023 Diabetes: Annual Ret foreign Eye Exam Diabetes: Annual Retina Eye Exam [facility] Start: 01-25-2023 Diabetes: Annual Uri ne Albumin-Creatinine Ratio (uACR) Diabetes: Annual Urine Albumin-Creatinine Ratio (uACR) [facility] Start: 01-25-2023 Diabetic foot examination Diabetes: Annual Foot Exam [facility] Start: 01-25-2023 Hemoglobin A1c measurement Diabetes: Blood Sugar Control Test (HGBA1C) [facility] Start: 08-21-2021 End: 08-21-2022 Cardiac event monitor Cardiac event monitor Cardiac Services Routine Paroxysmal atrial fibrillation (CMS/HCC) Expected: 08/21/2021, Expires: 08/21/2022 [facility] Work Phone: Comment on above: Expected: 08/21/2021 , Expires: 08/21/2022 Start: 08-20-2021 Diabetes: Annual Ret foreign Eye Exam Diabetes: Annual Retina Eye Exam [facility] Start: 08-20-2021 Diabetic foot examination Diabetes: Annual Foot Exam [facility] Start: 08-20-2021 Hemoglobin A1c measurement Diabetes: Blood Sugar Control Test (HGBA1C) [facility] Start: 08-20-2021 Urine screening for protein Diabetes: Annual Urine Protein Test (Microalbumin) [facility] Start: 06-09-2021 Hypertension/CHF/CAD Annual BMP Blood Test Hypertension/CHF/CAD Annual BMP Blood Test [facility] Start: 05-21-2021 Influenza vaccination Influenza Vacc ine (#1) [facility] Start: 10-29-2019 Adolescent depressio n screening assessment Depression Screening [facility] Start: 10-29-2019 Falls Risk Assessment Falls Risk Ass essment [facility] Start: 10-29-2019 Lipid panel Cholesterol Sc reening (Lipid Panel) [facility] Start: 10-29-2019 Medicare Annual Wellness Visit Medicare Annual Wellness Visit [facility] Start: 10-29-2019 Social Influencers o f Health Screening Social Influencers of Health Screening [facility] Start: 1999 RSV Immunization Patients 60+ Years Old (1 - 1-dose 60+ series) RSV Immunization Patients 60+ Years Old (1 - 1-dose 60+ series) [facility] Start: 12-24-1989 Zoster Vaccines (1 o f 2) Zoster Vaccines (1 of 2) [facility] Start: 12-24-1958 Zoster Vaccines (1 o f 2) Zoster Vaccines (1 of 2) [facility] Start: 1939 Diabetes: Annual GFR (Glomerular Filtration Rate) Diabetes: Annual GFR (Glomerular Filtration Rate) [facility] Immunizations Immunization Date Immunization Notes Care Provider Fa kylah 09-23-2022 Influenza Quadravale nt, 0.5ml (Fluad) 65yo and older Sedrick Reyes MD Work Phone: [facility] 11-10-2021 Influenza, high-dose , quadrivalent Sedrick Reyes MD Work Phone: [facility] 11-10-2021 Pneumococcal Conjuga te 20-Valent Sedrick Reyes MD Work Phone: [facility] 07-29-2021 Moderna SARS-CoV-2 COVID-19, mRNA, LNP-S, preservative free Sedrick Reyes MD Work Phone: [facility] 11-26-2020 Moderna SARS-CoV-2 COVID-19, mRNA, LNP-S, preservative free Sedrick Reyes MD Work Phone: [facility] 10-28-2020 Moderna SARS-CoV-2 COVID-19, mRNA, LNP-S, preservative free Sedirck Reyes MD Work Phone: [facility] 08-29-2019 influenza, high dose seasonal, preservative-free Sedrick Reyes MD Work Phone: [facility] 08-29-2019 influenza virus vacc ine, unspecified formulation Sedrick Reyes MD Work Phone: [facility] 08-18-2016 influenza, seasonal, injectable Sedrick Reyes MD Work Phone: [facility] 03-09-2016 tetanus toxoid, redu kristin diphtheria toxoid, and acellular pertussis vaccine, adsorbed Sedrick Reyes MD Work Phone: [facility] 03-08-2016 tetanus toxoid, redu kristin diphtheria toxoid, and acellular pertussis vaccine, adsorbed Sedrick Reyes MD Work Phone: [facility] 11-12-2015 pneumococcal conjuga te vaccine, 7 valent Sedrick Reyes MD Work Phone: [facility] 11-12-2015 pneumococcal polysaccharide vaccine, 23 valent Sedrick Reyes MD Work Phone: [facility] Payers Date Payer Category Payer Private Health Insurance [id number] 2017 Private Health Insurance [employer] A ETNA [id number] 2017-Present [address] [place] [address] [id number] 2017 Private Health Insurance MARYLOU CORLEY [id number] 2017-Present [address] [place] [address] [id number] 2017 Private Health Insurance [id number] 2004 Medicare MEDICARE MEDICAR E PART A & B [id number] 2004-Present [address] [place] [address] Medicare [id number] 2004 Medicare MEDICARE MEDICAR E PART A & B [id number] 2004-Present [address] [place] [address] Medicare [id number] 2004 Medicare [id number] 1959 Self-pay 1940 Unknown [id number] 1939 Unknown [id number] 1939 Unknown [id number] Unknown [id number] Unknown [id number] Unknown [id number] Social History Date Type Detail Facility Start: 08-21-2021 End: 08-28-2022 Tobacco smoking status NHIS Never smoker [facility]: 08-21-2021 End: 08-28-2022 Tobacco use and exposure Never used [facility] Start: 06-09-2021 History SDOH Alcohol Comment What is your level of alcohol consumption: Occasional [facility] Start: 1940 Sex Assigned At Not on file [facility] Start: 03-06-2022 End: 01-25-2023 Exposure to SARS-CoV-2 (event) Not sure [facility] Start: 03-16-2022 Alcohol intake Lifetime non-d shannan (finding) [facility] Start: 01-25-2023 End: 03-17-2024 Alcohol intake Ex-drinker (finding) [facility] Start: 08-28-2022 Alcohol Comment [facility]l occasion [facility] Gender identity Not on file [facility] Medical Equipment Procedure Code Equipment Code Equipment Original Text Equi pment Identifier Dates Use as instructed [id number] Use as instructed [id number] History of Present illness Narrative 03-17-2024 Sedrick Reyes MD - 03/17/2024 1:20 PM EDT Note Date & Type Note Facility 03-17-2024 History of Presen t illness Narrative Images from the original note were not included. Frazer Comb Winder [facility] Plan Mr. Machuca is doing well and appears stable from [...] opportunity to help take care of Mr. Isamar Machuca. If you have any questions, please feel free to contact me. Sedrick Reyes MD 03/17/24 1:19 PM EDT [facility] [address], [address] [place] [address] Office [phone] Chief Complaint: Routine follow-up for hypertension and hyperlipidemia HPI: Isamar Machuca is an 83 year-old man with a [...] 06/16/2011 VASCULAR SURGERY 09/02/2010 AAA repair in [place] Family History Problem Relation Name Age of [...] CHOLHDLRAT , LDLHDLRAT documented in this encounter [facility] History of Present illness Narrative 01-25-2023 Sedrick Reyes MD - 01/25/2023 3:20 PM EDT Note Date & Type Note Facility 01-25-2023 History of Presen t illness Narrative Images from the original note were not included. [employer] [facility] Assessment [facility] Mr. Machuca is doing well and appears stable from [...] opportunity to help take care of Mr. Isamar Machuca. If you have any questions, please feel free to contact me. Sedrick Reyes MD 01/25/23 3:06 PM EDT [facility] [address], [address] [place] [address] Office [phone] Chief Complaint: Routine follow-up for hypertension and hyperlipidemia HPI: Isamar Machuca is an 82 year-old man with a [...] 06/16/2011 VASCULAR SURGERY 09/02/2010 AAA repair in [place] Family History Problem Relation Name Age of [...] component: CHOLHDLRAT, LDLHDLRAT documented in this encounter [facility] History of Present illness Narrative 03-16-2022 Sedrick Reyes MD - 03/16/2022 3:40 PM EDT Note Date & Type Note Facility 03-16-2022 History of Presen t illness Narrative Images from the original note were not included. [employer] [facility] Assessment and Plan Mr. Machuca is doing well and appears stable from [...] opportunity to help take care of Mr. Isamar Machuca. If you have any questions, please feel free to contact me. Sedrick Reyes MD 03/16/22 3:30 PM EDT [facility] [address], [address] [place] [address] Office [phone] Chief Complaint: Routine follow-up for hypertension and hyperlipidemia HPI: Isamar Machuca is an 81 year-old man with a [...] 06/16/2011 VASCULAR SURGERY 09/02/2010 AAA repair in [place] Family History Problem Relation Name Age of [...] component: CHOLHDLRAT, LDLHDLRAT documented in this encounter [facility] History of Present illness Narrative 08-27-2021 Paulette Kidd RN - 08/27/2021 11:34 AM EST Note Date & Type Note Facility 08-27-2021 History of Presen t illness Narrative Per first monitor did not work I sent an email to [employer] to send another one documented in this encounter [facility] History of Present illness Narrative 08-21-2021 Sedrick Reyes MD - 08/21/2021 2:10 PM EST Note Date & Type Note Facility 08-21-2021 History of Presen t illness Narrative Images from the original note were not included. Frazer Comb [employer]inder [facility] Assessment and Plan Isamar is doing well and appears stable from [...] opportunity to help take care of . Isamar Machuca. If you have any questions, please feel free to contact me. Sedrick Reyes MD 08/21/21 2:00 PM EST [facility] [address], [address] [place] [address] Office [phone] Chief Complaint: Routine follow-up for hypertension hyperlipidemia HPI: Isamar Machuca is an 80 year-old man with a [...] 06/16/2011 VASCULAR SURGERY 09/02/2010 AAA repair in [place] Family History Problem Relation Name Age of [...] component: CHOLHDLRAT, LDLHDLRAT documented in this encounter [facility] Evaluation note Note Date & Type Note Facility Evaluation note Diagnosis Essential hypertension- Primary Unspecified essential hypertension Paroxysmal atrial fibrillation (CMS/HCC) Atrial fibrillation Mixed hyperlipidemia Right bundle branch block Obstructive sleep apnea syndrome in adult documented in this encounter [facility] note Note Date & Type Note Facility Evaluation note Diagnosis Premature atrial contractions- Primary Supraventricular premature beats documented in this encounter [facility] Evaluation note Note Date & Type Note Facility Evaluation note Diagnosis Essential hypertension- Primary Unspecified essential hypertension PAC (premature atrial contraction) Supraventricular premature beats Mixed hyperlipidemia Right bundle branch block Obstructive sleep apnea syndrome in adult documented in this encounter [facility] Evaluation note Note Date & Type Note Facility Evaluation note Diagnosis RBBB (right bundle branch block)- Primary Right bundle branch block PAC (premature atrial contraction) Supraventricular premature beats Essential hypertension Unspecified essential hypertension Mixed hyperlipidemia Obstructive sleep apnea syndrome in adult documented in this encounter [facility] Evaluation note Note Date & Type Note Facility Evaluation note Diagnosis RBBB (right bundle branch block)- Primary Right bundle branch block PAC (premature atrial contraction) Supraventricular premature beats Essential hypertension Unspecified essential hypertension Mixed hyperlipidemia Obstructive sleep apnea syndrome in adult documented in this encounter [facility] Summary Purpose Family History No Family History Records FoundNo Family History Records FoundNo Family History Records FoundNo Family History Records FoundNo Family History Records Found Advance Directives No Advanced Directives Records FoundDocuments on File Type Date Recorded Patient Debrander Expl anation Power of Chain Pegger Documents on File Type Date Recorded Patient Debrander Expl anation Power of Chain Pegger Reason for Referral Specialty Diagnoses / Procedures Referred By Contac t Referred To Contact Cardiology Diagnoses Paroxysmal atrial fibrillation (CMS/HCC) Procedures Cardiac event monitor WA ECG EXTERNAL < 48 HOURS RECORDING WA ECG EXTERNAL < 48 HOURS SCANNING ANALYSIS W/REPORT WA ECG EXTERNAL < 48 HOURS CONTINUOUS RHYTHM RECORDING & STORAGE REVIEW & INTERPRETATION BY A PHYSICIAN/OTHER QUALIFIED HEALTH FASHION ILLUSTRATOR Sedrick Reyes MD [address] [facility] [address] [place] [address] Referral ID Status Reason Start Date Expiration Date V isits Requested Visits Authorized [id number] Authorized 08/21/2021 02/17/2022 1 1 Additional Source Comments (unrecognized sect ion and content) No Status Records FoundNo Status Records FoundNo Status Records FoundNo Status Records FoundNo Status Records Found INFORMATION SOURCE (unrecogn ized section and content) DATE CREATED AUTHOR 10/31/2019 [facility] DATE CREATED AUTHOR AUTHOR'S ORGANIZ ATION 08/25/2021 [facility] DATE CREATED AUTHOR AUTHOR'S ORGANIZ ATION 03/19/2024 [facility] DATE CREATED AUTHOR AUTHOR'S ORGANIZ ATION 12/10/2024 [facility] EPIC DATE CREATED AUTHOR AUTHOR'S ORGANIZ ATION 12/12/2024 Betancur [facility] Reason for Visit (unrecogniz ed section and [...] Care Teams (unrecognized sec tion and content) Furniture Shampooer Relationship Specialty Start Date End Date Griffin Moon MD [address] [facility] [place] [address] PCP - General Family Medicine 03/17/24 FOR [...] BE BASED ON THE PRIMARY CLINICAL RECORDS. [facility]. provides no warranty or guarantee of the accuracy or completeness of information in this document.
[2024-12-18 16:08] LABS: Glucometer 129 mg/dL (74-106)
[2024-12-18] MEDS: LACTATED RINGER'S SOLUTION 1,000 ML 50 ML IV (16:36)
[2024-12-18] MEDS: MAGNESIUM SULFATE IN WATER 4 GM/100 ML PIGGYBACK IV (16:36)
--- NOTE | 2024-12-18 17:22 | PC.NURSE ---
Bilateral lower extremeties with dark red discoloration, extending up toward knees. Outlined with marker. Warm to touch, no drainage, no odor. Redness is flat no raised areas. Pulses present with palpation.
--- NOTE | 2024-12-18 19:06 | P.HP_ITS ---
HPI H&P: HPI History of Present Illness Chief complaint: A-Fib w/RVR [place] Narrative: Patient came back into the emergency room with increasing swelling and erythema in his lower extremities, in the ER found to be in atrial fibrillation with rapid ventricular spots with bilateral pulmonary infiltrates and respiratory distress When I saw patient up in the intensive care unit,resting comfortably, no cough Opioid HPI Opioid Management Most Recent Pain and Opioid Data: Last Pain Scale 2 11/29/24 11:08 11/29/24 Last Pain Intensity 2 11/29/24 11:08 11/29/24 Last Pain Assessment 12/18/24 18:08 Last ORT Total Score 0 12/18/24 15:32 12/18/24 Last ORT Risk Category Low Risk 12/18/24 15:32 12/18/24 Review of Systems ROS Status of ROS 10 or more systems reviewed and unremark able except as noted in history and below [facility] Medical History Type 2 diabetes mellitus ?E11.9 - Type 2 diabetes mellitus without complications (ICD-10) HTN (hypertension) ?I10 - Essential (primary) hypertension (ICD-10) Atrial fibrillation with RVR ?I48.91 - Unspecified atrial fibrillation (ICD-10) Elevated troponin level not due myocardial infarction ?R79.89 - Other specified abnormal findings of blood chemistry (ICD-10) HLD (hyperlipidemia) ?E78.5 - Hyperlipidemia, unspecified (ICD-10) Colon cancer ?C18.9 - Malignant neoplasm of colon, unspecified (ICD-10) Colon cancer ?C18.9 - Malignant neoplasm of colon, unspecified (ICD-10) Social History Highest level of school completed/degree received: high school graduate Little interest or pleasure in doing things: not at all Feeling down, depressed, or hopeless: not at all Meds Home Medications and Allergies Home Medications ?Medication ?Instructions ?Recorded ?Confirmed ?Type amlodipine 5 mg-benazepril 10 mg 1 cap PO DAILY 11/27/24 12/18/24 History capsule atorvastatin 40 mg tablet 40 mg PO DAILY 11/27/24 12/18/24 History sitagliptin phosphate 50 1 tab PO BID 11/27/24 12/18/24 History mg-metformin 500 mg tablet (Janumet) apixaban 5 mg tablet (Eliquis) 5 mg PO BID #60 tabs 11/29/24 12/18/24 Rx metoprolol succinate 50 mg 50 mg PO BID #60 tabs 11/29/24 12/18/24 Rx tablet,extended release 24 hr furosemide 40 mg tablet 40 mg PO DAILY 12/18/24 12/18/24 History nystatin 100,000 unit/gram topical 1 applic topical BID 12/18/24 12/18/24 History cream potassium chloride 20 mEq 20 meq PO DAILY 12/18/24 12/18/24 History tablet,extended release(part/cryst) Allergies Allergy/AdvReac Type Severity Reaction Status Date / Time No Known Drug Allergies Allergy Verified 11/27/24 10:36 Exam Constitutional Vital Signs, click to edit/add: Last Vital Signs Temp 97.8 F 12/18/24 14:21 Pulse 82 12/18/24 18:15 Resp 23 H 12/18/24 18:15 BP 101/57 12/18/24 18:15 Pulse Ox 94 L 12/18/24 18:15 O2 Del Method Room Air 12/18/24 18:21 Documenting provider has reviewed patient's vital signs: yes Common normals: no apparent distress Respiratory Common normals: normal respiratory effort Auscultation: rhonchi (bases) Cardio Common normals: irregular rate Rate: tachycardic Rhythm: abnormal rhythm GI Common normals: negative for Normal to inspection, nondistended, normoactive bowel sounds present (obese) Extremity Common normals: abnormal to inspection (erythmea and some petechia) and clubbing, cyanosis or edema (2+ edema) Results Labs Labs: Short CBC 12/18/24 Range/Units 12:14 WBC 6.9 (4.0-11.0) 10^3/uL Hgb 12.6 L (14.0-18.0) g/dL Hct 38.5 L (42.0-54.0) % Plt Count 315 (150-450) 10^3/uL BMP 12/18/24 12:14 Sodium 136 Potassium 4.3 Chloride 103 Carbon Dioxide 23.7 BUN 18.0 Creatinine 1.48 H Glucose 208 H Calcium 9.2 Assessment and Plan Assessment and Plan (1) Right lower lobe pulmonary infiltrate: (2) Left lower lobe pulmonary infiltrate: (3) Atrial fibrillation with RVR: Plan Admission findings: Tachycardia, mild respiratory distress, bilateral pulmonary infiltrates, positive lactic acidosis, hypomagnesemia with some acute elevation in creatinine complicated by atrial fibrillation with rapid ventricular response Bilateral pulmonary infiltrates-will start patient on IV antibiotics try to obtain sputum sample he is coughing up some, held off on aerosol treatments with the tachycardia from the atrial fibrillation Atrial fibrillation with rapid ventricular response-consult to cardiology, maintain anticoagulation, rate controlled currently with Cardizem drip, try to wean that increased beta-josé miguel Cellulitis bilateral lower extremities, not improving with antibiotics, he will be on Rocephin and Zithromax for the pulmonary infiltrates, does have some petechiae concerning for possible vasculitis Diabetes mellitus-insulin sliding scale Hypomagnesemia-supplement and repeat labs in a.m. Admission status: Patient mated to the intensive care unit with atrial fibrillation with rapid ventricular spots with bilateral pulmonary infiltrates, medically necessary treatment will span 2 midnights. Inpatient status
--- NOTE | 2024-12-18 19:26 | P.CACN_ITS ---
History of Present Illness History of Present Illness Consult date: 12/18/24 Requesting physician: Zaki Bee Chief complaint: A-Fib w/RVR Narrative: The patient is a 83-year-old male with prior history of of atrial fibrillation noted on recent admission earlier this month after he fell and had right lower extremity cellulitis. He has been at home, he noticed lately that his legs edema is becoming worse with redness of both legs however no fever or chills. H e states that his shortness of breath is better than when he was in the hospital earlier this month with influenza A pneumonia. He denies any chest discomfort. He denies cough. He denies orthopnea or paroxysmal nocturnal dyspnea or dizziness. When he arrived to the emergency room he was noted to be in atrial fibrillation with rapid ventricular rate. His lactate is 2.5. Magnesium 1.3 and potassium 4.3. HbA1c 8.5%. He had bilateral lower extremities edema and redness. He was started on Cardizem IV infusion and he is on 5 mg/h and this is controlling his heart rate reasonably. He was also started on Lasix IV and IV antibiotics. High-sensitivity troponin negative x 3. BNP was normal at 1300 He reports that he sleeps in a recliner because of history of sleep apnea and intolerance to CPAP however he has new recliner which can elevate his legs to the level of the heart Review of Systems ROS Narrative All systems were reviewed and they were negative except for the positive findings noted above in the history [facility] Medical History (Updated 12/18/24 @ 19:45 by Randall Sanford MD) Type 2 diabetes mellitus ?E11.9 - Type 2 diabetes mellitus without complications (ICD-10) HTN (hypertension) ?I10 - Essential (primary) hypertension (ICD-10) Atrial fibrillation with RVR ?I48.91 - Unspecified atrial fibrillation (ICD-10) Elevated troponin level not due myocardial infarction ?R79.89 - Other specified abnormal findings of blood chemistry (ICD-10) HLD (hyperlipidemia) ?E78.5 - Hyperlipidemia, unspecified (ICD-10) Colon cancer ?C18.9 - Malignant neoplasm of colon, unspecified (ICD-10) Colon cancer ?C18.9 - Malignant neoplasm of colon, unspecified (ICD-10) Social History Highest level of school completed/degree received: high school graduate Little interest or pleasure in doing things: not at all Feeling down, depressed, or hopeless: not at all Meds Home Medications and Allergies Home Medications ?Medication ?Instructions ?Recorded ?Confirmed ?Type amlodipine 5 mg-benazepril 10 mg 1 cap PO DAILY 11/27/24 12/18/24 History capsule atorvastatin 40 mg tablet 40 mg PO DAILY 11/27/24 12/18/24 History sitagliptin phosphate 50 1 tab PO BID 11/27/24 12/18/24 History mg-metformin 500 mg tablet (Janumet) apixaban 5 mg tablet (Eliquis) 5 mg PO BID #60 tabs 11/29/24 12/18/24 Rx metoprolol succinate 50 mg 50 mg PO BID #60 tabs 11/29/24 12/18/24 Rx tablet,extended release 24 hr furosemide 40 mg tablet 40 mg PO DAILY 12/18/24 12/18/24 History nystatin 100,000 unit/gram topical 1 applic topical BID 12/18/24 12/18/24 History cream potassium chloride 20 mEq 20 meq PO DAILY 12/18/24 12/18/24 History tablet,extended release(part/cryst) Allergies Allergy/AdvReac Type Severity Reaction Status Date / Time No Known Drug Allergies Allergy Verified 11/27/24 10:36 Exam Narrative Exam Narrative: He is alert, oriented, not in apparent distress HEENT within normal limits Neck supple, normal range of motion, no carotid bruit, jugular venous pressure is normal Lungs fine crackles on the right base, no wheezes or rhonchi Cardiovascular system irregular irregularity, normal S1 and S2, next Extremities significant edema bilaterally and also significant redness at the lower portion of both legs Abdomen soft benign no organomegaly or tenderness Neurological examination grossly normal Constitutional Vital Signs, click to edit/add: Last Vital Signs Temp 97.8 F 12/18/24 14:21 Pulse 82 12/18/24 18:15 Resp 23 H 12/18/24 18:15 BP 101/57 12/18/24 18:15 Pulse Ox 94 L 12/18/24 18:15 O2 Del Method Room Air 12/18/24 18:21 Results Labs and Meds Lab results: CBC 12/18/24 Range/Units 12:14 WBC 6.9 (4.0-11.0) 10^3/uL RBC 4.25 L (4.70-6.10) 10^6/uL Hgb 12.6 L (14.0-18.0) g/dL Hct 38.5 L (42.0-54.0) % Plt Count 315 (150-450) 10^3/uL Neut # (Auto) 4.8 (1.4-6.5) 10^3/uL Lymph # (Auto) 1.2 (1.2-3.8) 10^3/uL [place] # (Auto) 0.8 (0.3-0.8) 10^3/uL Eos # (Auto) 0.1 (0.0-0.7) 10^3/uL Baso # (Auto) 0.1 (0.0-0.1) 10^3/uL Comprehensive Metabolic Panel 12/18/24 Range/Units 12:14 Sodium 136 (136-145) mmol/L Potassium 4.3 (3.5-5.1) mmol/L Chloride 103 (98-107) mmol/L Carbon Dioxide 23.7 (21.0-32.0) mmol/L BUN 18.0 (7.0-18.0) mg/dL Creatinine 1.48 H (0.70-1.30) mg/dL Glucose 208 H (74-106) mg/dL Calcium 9.2 (8.5-10.1) mg/dL Intake and Output 12/18/24 12/18/24 12/18/24 07:59 15:59 23:59 Intake Total 300 / 400 100 / 400 Output Total 150 / 400 250 / 400 Balance 150 / 0 -150 / 0 Intake: IV 300 / 400 100 / 400 Azithromycin 500 mg In 0.9 % 250 / 250 Sodium Chloride 250 ml @ 250 mls/hr IV ONCE ONE Rx#:[id number] Ceftriaxone 1,000 mg In 0.9 % 50 / 50 Sodium Chloride 50 ml @ 100 mls /hr IV ONCE ONE Rx#:[id number] Magnesium Sulfate in Water 4 gm 100 / 100 In 100 ml @ 50 mls/hr IV ONCE ONE Rx#:[id number] Output: Urine 150 / 400 250 / 400 Other: Weight 113.7 kg Patient Weight 12/19/24 07:59 Weight 113.7 kg EKG on admission showed atrial fibrillation with rapid ventricular rate and right bundle branch block. Assessment and Plan Assessment and Plan (1) Atrial fibrillation with RVR: (2) Edema of both legs: Assessment and Plan: Probably due to combination of cellulitis, venous insufficiency, and heart failure due to rapid atrial fibrillation (3) Diastolic heart failure: Assessment and Plan: Due to atrial fibrillation with RVR (4) Hypomagnesemia: (5) Lower extremity cellulitis: (6) HTN (hypertension): Qualifiers: Hypertension type: primary hypertension Qualified Code(s): I10 - Essential (primary) hypertension (7) HLD (hyperlipidemia): Qualifiers: Hyperlipidemia type: unspecified Qualified Code(s): E78.5 - Hyperlipidemia, unspecified (8) Type 2 diabetes mellitus: Qualifiers: Diabetes mellitus assembler wire group insulin use: without assembler wire group use Diabetes mellitus complication status: without complication Qualified Code(s): E11.9 - Type 2 diabetes mellitus without complications (9) Obesity: (10) Obstructive sleep apnea: (11) Chronic kidney disease: Plan Patient ventricular rate is currently reasonably controlled on Cardizem IV at 5 mg/h I agree on resuming Toprol XL at a higher dose 75 mg twice daily to wean the Cardizem IV off. I recommend to discontinue amlodipine hopefully to help with reducing legs edema Continue Eliquis Agree on diuresing with Lasix 40 mg IV daily Obtain an echocardiographic study in the morning to evaluate cardiac and valvular function Correct electrolytes particularly magnesium Close monitoring of fluid balance, renal function and weight If ventricular rate gets well-controlled with medical treatment and if ejection fraction is normal, patient can be discharged home on medical treatment and evaluated as out patient for possible cardioversion in the future
--- NOTE | 2024-12-18 19:46 | P.STRESS_ITS ---
<Statement entered by Randall Sanford MD - 03/15/25 18:39> This documentation has been reviewed and approved.
[2024-12-18] MEDS: METOPROLOL SUCCINATE 25 MG TAB.ER.24H 75 MG PO (20:47)
[2024-12-18] MEDS: APIXABAN 5 MG TABLET PO (20:48)
[2024-12-18] MEDS: SITAGLIPTIN PHOSPHATE 50 MG TABLET PO (20:48)
[2024-12-18 20:49] LABS: Glucometer 199 mg/dL (74-106)
[2024-12-18] MEDS: MAGNESIUM OXIDE 400 MG TABLET PO (20:49)
[2024-12-18] MEDS: METFORMIN HCL 500 MG TABLET PO (20:49)
[2024-12-18] MEDS: NYSTATIN 100,000 UNITS/GRAM CREAM 15 GM TUBE 1 APPLIC TOPICAL (20:50)
[2024-12-19] VITALS (17 sets, daily range): BP systolic 94–118; BP diastolic 66–81; PULSE 73–133; TEMP 36.4–36.6; O2SAT 93–99
[2024-12-19 05:33] LABS: Basophils Absolute Auto 0.1 10^3/uL (0.0-0.1); Basophils Percent Auto 1.1 % (0.2-2.0); Eosinophils Absolute Auto 0.1 10^3/uL (0.0-0.7); Eosinophils Percent Auto 2.3 % (0.9-7.0); Hematocrit 37.8 % (42.0-54.0); Immature Granulocytes Abs Auto 0.02 10^3/uL (0.00-0.03); Immature Granulocytes Pct Auto 0.4 % (0.0-0.5); Lymphocytes Absolute Auto 1.1 10^3/uL (1.2-3.8); Lymphocytes Percent Auto 19.8 % (20.5-60.0); Mean Corpuscular HGB Conc 31.7 g/dL (29.9-35.2); Mean Corpuscular Volume 91.3 fL (80.0-94.0); Monocytes Absolute Auto 0.7 10^3/uL (0.3-0.8); Monocytes Percent Auto 12.8 % (1.7-12.0); Neutrophils Absolute Auto 3.6 10^3/uL (1.4-6.5); Neutrophils Percent Auto 63.6 % (43.0-75.0); Platelet Count 310 10^3/uL (150-450); Red Blood Count 4.14 10^6/uL (4.70-6.10); Red Cell Distribution Width 13.9 % (11.0-15.0); White Blood Count 5.6 10^3/uL (4.0-11.0)
[2024-12-19 05:37] LABS: Bilirubin Urine NEGATIVE (NEGATIVE); Blood Urine NEGATIVE (NEGATIVE); Clarity Urine CLEAR (CLEAR); Color Urine YELLOW (YELLOW); Glucose Urine UA NEGATIVE (NEGATIVE); Ketones Urine NEGATIVE (NEGATIVE); Leukocyte Esterase Urine NEGATIVE (NEGATIVE); Nitrite Urine NEGATIVE (NEGATIVE); Protein Urine 30 mg/dL (NEG/TRACE); Specific Gravity Urine 1.025 (1.005-1.025); Urobilinogen Urine 0.2 EU/dL (0.2-1.0); pH Urine 5.5 (5.0-9.0)
[2024-12-19 05:43] LABS: Bacteria Urine NONE SEEN #/HPF (NONE SEEN); Cast Seen? NONE SEEN #/LPF (NONE SEEN); Crystals Seen? None Seen #/HPF (None Seen); Mucus Urine NONE SEEN (NONE SEEN); RBC Urine NONE SEEN #/HPF (0-2); Squamous Epithelial Cell Urine RARE #/LPF (NONE/RARE); Urine Culture Indicated ALREADY ORDERED; WBC Urine NONE SEEN #/HPF (NONE SEEN)
[2024-12-19 05:49] LABS: C Reactive Protein <0.50 mg/dL (<=0.50)
[2024-12-19 05:58] LABS: Alanine Aminotransferase 22 U/L (16-63); Albumin Globulin Ratio 0.8; Albumin Level 2.9 g/dL (3.4-5.0); Alkaline Phosphatase 83 U/L (46-116); Anion Gap 4.2; Aspartate Amino Transferase 21 U/L (15-37); BUN Creatinine Ratio 14.8; Bilirubin Total 0.7 mg/dL (0.2-1.0); Calcium 9.1 mg/dL (8.5-10.1); Carbon Dioxide 25.5 mmol/L (21.0-32.0); Chloride 102 mmol/L (98-107); Estimated GFR (African America >60 (>=60 mL/min/1.73m^2); Estimated GFR (Non-African Ame 54 (>=60 mL/min/1.73m^2); Globulin 3.7 g/dL; Glucose 175 mg/dL (74-106); Magnesium 2.2 mg/dL (1.8-2.4); Potassium 4.7 mmol/L (3.5-5.1); Sodium 127 mmol/L (136-145); Total Protein 6.6 g/dL (6.4-8.2); Troponin I High Sensitivity 56.1 pg/mL (4.0-76.1)
--- NOTE | 2024-12-19 08:15 | CM.NOTE ---
Important Message From Medicare discussed with pt, pt verbalizes understanding and signs paper. Original given to pt and copy placed on pt's chart.
[2024-12-19] MEDS: SITAGLIPTIN PHOSPHATE 50 MG TABLET PO ×2 (10:28→21:27)
[2024-12-19] MEDS: APIXABAN 5 MG TABLET PO ×2 (10:28→21:27)
[2024-12-19] MEDS: METOPROLOL SUCCINATE 25 MG TAB.ER.24H 75 MG PO ×2 (10:29→21:27)
[2024-12-19] MEDS: POTASSIUM CHLORIDE 10 MEQ ER TABLET 20 MEQ PO (10:29)
[2024-12-19] MEDS: METFORMIN HCL 500 MG TABLET PO ×2 (10:29→21:27)
[2024-12-19] MEDS: NYSTATIN 100,000 UNITS/GRAM CREAM 15 GM TUBE 1 APPLIC TOPICAL ×2 (10:30→21:27)
[2024-12-19] MEDS: MAGNESIUM OXIDE 400 MG TABLET PO ×2 (10:30→21:27)
--- NOTE | 2024-12-19 11:11 | CM.NOTE ---
Rounds made with Dr. Sutton, discussed with pt lab results and diagnosis. Dr. Sutton discussed plan of care and Bumex drip to start today. No discharge.
--- NOTE | 2024-12-19 11:18 | PM.PN ---
Progress Note: Subjective Subjective Interval history: Patient stable this am. Off cardizem drip and remains in afib but rate controlled. Continues to have LE edema and redness to both legs. Afebrile and normal WBC. Mild cough. No chest pain or palpitations. Mild SOB. Normal appetite and no emesis or diarrhea. Exam Constitutional Vital Signs, click to edit/add: Last Vital Signs Temp 98 F 12/19/24 07:40 Pulse 99 H 12/19/24 10:00 Resp 16 12/19/24 07:40 BP 111/73 12/19/24 07:40 Pulse Ox 97 12/19/24 09:57 O2 Del Method Room Air 12/19/24 09:57 Documenting provider has reviewed patient's vital signs: yes Common normals: no apparent distress, oriented x3 and alert HENMT Common normals: normocephalic Eye Common normals: PERRL and EOMs intact bilaterally Respiratory Common normals: normal respiratory effort and clear to auscultation bilaterally Cardio Common normals: regular rate, no gallops, no murmurs and no rub Rhythm: abnormal rhythm irregularly irregular GI Common normals: Normal to inspection, nondistended, normoactive bowel sounds present and non-tender Extremity General: edema (2-3+ bipedal edema) and other findings (Mild erythema bilateral lower legs) Progress Note: Objective Labs Labs: Short CBC 12/18/24 12/19/24 Range/Units 12:14 05:20 WBC 6.9 5.6 (4.0-11.0) 10^3/uL Hgb 12.6 L 12.0 L (14.0-18.0) g/dL Hct 38.5 L 37.8 L (42.0-54.0) % Plt Count 315 310 (150-450) 10^3/uL BMP 12/18/24 12/19/24 12:14 05:20 Sodium 136 127 L Potassium 4.3 4.7 Chloride 103 102 Carbon Dioxide 23.7 25.5 BUN 18.0 19.0 H Creatinine 1.48 H 1.28 Glucose 208 H 175 H Calcium 9.2 9.1 Liver Function 12/19/24 Range/Units 05:20 Total Bilirubin 0.7 (0.2-1.0) mg/dL AST 21 (15-37) U/L ALT 22 (16-63) U/L Alkaline Phosphatase 83 (46-116) U/L Albumin 2.9 L (3.4-5.0) g/dL Urine 12/19/24 Range/Units 05:20 Urine Color Yellow (YELLOW) Urine Clarity Clear (CLEAR) Urine pH 5.5 (5.0-9.0) Ur Specific Story 1.025 (1.005-1.025) Urine Protein 30 A (NEG/TRACE) mg/dL Urine Glucose (UA) Negative (NEGATIVE) mg/dL Progress Note: A&P Assessment and Plan (1) Acute on chronic heart failure with preserved ejection fraction (HFpEF): (2) Atrial fibrillation with RVR: (3) Pneumonia: (4) Type 2 diabetes mellitus: Qualifiers: Diabetes mellitus intermediate teacher insulin use: without senior care use Diabetes mellitus complication status: without complication Qualified Code(s): E11.9 - Type 2 diabetes mellitus without complications (5) HTN (hypertension): Qualifiers: Hypertension type: primary hypertension Qualified Code(s): I10 - Essential (primary) hypertension (6) Hypomagnesemia: (7) Venous stasis dermatitis of both lower extremities: (8) CKD stage 3a, GFR 45-59 ml/min: (9) Obstructive sleep apnea: (10) Obesity: Plan Presented with worsening edema and not much improvement with lasix. Start bumex drip. Echo 11/28/24 showed EF 55%. Remains in afib but rate controlled and continue metoprolol. Will stop amlodipine due to edema. Mild erythema in both legs and appears related to chronic venous stasis dermatitis and not cellulitis. Continue rochephin for pneumonia and replace zithromax for levaquin which would cover potential skin pathogens. Continue PT/OT.
[2024-12-19 11:20] LABS: Glucometer 137 mg/dL (74-106)
[2024-12-19] MEDS: BUMETANIDE 10 MG in 0.9 % SODIUM CHLORIDE 160 ML 20 MG IV (11:29)
--- NOTE | 2024-12-19 12:16 | CM.NOTE ---
Discussed with pt recommendations from PT and OT for HH services. Pt is in agreement to only PT at discharge for HH, pt denies need for OT or nurse. Pt states summer is coming and he is too busy with outside work. Faxed Care Management referral, progress notes, and CRF to [facility] for HH services.
[2024-12-19] MEDS: LEVOFLOXACIN IN DEXTROSE 5 % 750 MG/150 ML PREMIX 100 MG IV (12:23)
[2024-12-19] MEDS: CEFTRIAXONE 1,000 MG in 0.9 % SODIUM CHLORIDE 50 ML 100 MG IV (13:50)
--- NOTE | 2024-12-19 15:00 | CM.NOTE ---
Spoke with [facility] to make sure referral had been received. Fax was not received, resent information for new referral.
[2024-12-19 15:35] LABS: Erythrocyte Sedimentation Rate 14 mm/hr (<=20)
--- NOTE | 2024-12-19 19:25 | CA_ITS ---
Patient Name: ISAMAR MACHUCA MR#: [id number] : 1940 Exam Date: 12/19/2024 Ordering Doctor: DR. LYNETTE LOPEZ M.D. ECHOCARDIOGRAM REPORT PROCEDURE: CA ECHO LIMITED INDICATIONS: afib, heart failure, diabetes, h/o colon cancer COMPARISON: None. DESCRIPTION: Limited ECHOCARDIOGRAM Real-time transthoracic echocardiography with 2D and M-mode performed. QUALITY: Technical quality was good. Limited echocardiogram per physician order. LEFT VENTRICLE: Normal chamber size. Mild concentric left ventricular hypertrophy. Systolic function is difficult to assess due to rhythm but appears at the lower limits of normal. LV EF: Low normal left ventricular ejection fraction, (50-55%). DIASTOLIC: ATRIAL SEPTUM: LEFT ATRIUM: Severe dilatation. RIGHT ATRIUM: Moderate dilatation. RIGHT VENTRICLE: Normal chamber size. Normal systolic function. TRICUSPID VALVE: Normal mobility and thickness. MITRAL VALVE: Normal mobility and thickness. There is no mitral annular calcification. AORTIC VALVE: Not well visualized. AORTIC ROOT: Mildly to moderately dilated (4.4 cm). PULMONIC VALVE: Not well visualized. PERICARDIUM: No evidence of pericardial effusion. IVC: IVC is dilated (2.3 cm), does not collapse. PLEURA: CONCLUSION: 1. Mild concentric low ventricular hypertrophy with low normal systolic function. LVEF is estimated at 50 to 55%. 2. Normal right ventricular size and systolic function. 3. Moderate to severe biatrial dilatation. 4. Mild to moderately dilated ascending aorta, measuring 4.4 cm. 5. Limited study performed with no Doppler interrogation as requested. Adult Echocardiography Procedure Report Left Ventricle LVEDD (3.7 - 5.6 cm): 5.22 cm LVESD (2.2 - 4.0 cm): 3.85 cm LVIVS thickness (0.6 - 1.2 cm): 1.18 cm LVPW thickness (0.5 - 1.0 cm): 1.38 cm LVOT Diameter 2.76 cm Left Atrium LA Volume Index (2D A2C): 43.83 ml/m2 Left Atrium Systolic Dimension: 4.60 cm Mitral Valve Right Ventricle Aorta AO Root Diam: 4.38 cm Aortic Valve Tricuspid Valve Pulmonic Valve Right Atrium Right Atrium Systolic Pressure: 61.26 ml, 61.26 ml Dictated by: Octavio Mcdonnell M.D. on 12/19/2024 at 17:20 Approved by: Octavio Mcdonnell M.D. on 12/19/2024 at 17:23
[2024-12-19 20:30] LABS: Glucometer 144 mg/dL (74-106)
[2024-12-19] MEDS: ATORVASTATIN CALCIUM 40 MG TABLET PO (21:27)
[2024-12-20] VITALS (8 sets, daily range): BP systolic 99–111; BP diastolic 65–80; PULSE 98–115; TEMP 36.4–36.6; O2SAT 96–98
[2024-12-20 04:47] LABS: Basophils Absolute Auto 0.1 10^3/uL (0.0-0.1); Basophils Percent Auto 0.9 % (0.2-2.0); Eosinophils Absolute Auto 0.1 10^3/uL (0.0-0.7); Eosinophils Percent Auto 2.1 % (0.9-7.0); Hematocrit 40.2 % (42.0-54.0); Hemoglobin 13.2 g/dL (14.0-18.0); Immature Granulocytes Abs Auto 0.01 10^3/uL (0.00-0.03); Immature Granulocytes Pct Auto 0.1 % (0.0-0.5); Lymphocytes Absolute Auto 1.1 10^3/uL (1.2-3.8); Lymphocytes Percent Auto 16.7 % (20.5-60.0); Mean Corpuscular HGB Conc 32.8 g/dL (29.9-35.2); Mean Corpuscular Hemoglobin 29.4 pg (25.9-34.0); Mean Corpuscular Volume 89.5 fL (80.0-94.0); Mean Platelet Volume 10.4 fL (9.5-13.5); Monocytes Absolute Auto 0.8 10^3/uL (0.3-0.8); Monocytes Percent Auto 11.6 % (1.7-12.0); Neutrophils Absolute Auto 4.6 10^3/uL (1.4-6.5); Neutrophils Percent Auto 68.6 % (43.0-75.0); Platelet Count 299 10^3/uL (150-450); Red Blood Count 4.49 10^6/uL (4.70-6.10); Red Cell Distribution Width 13.6 % (11.0-15.0); White Blood Count 6.7 10^3/uL (4.0-11.0)
[2024-12-20 05:06] LABS: Alanine Aminotransferase 14 U/L (16-63); Albumin Globulin Ratio 0.8; Albumin Level 3.1 g/dL (3.4-5.0); Alkaline Phosphatase 88 U/L (46-116); Anion Gap 14.5; Aspartate Amino Transferase 19 U/L (15-37); BUN Creatinine Ratio 17.7; Bilirubin Total 0.8 mg/dL (0.2-1.0); Calcium 9.3 mg/dL (8.5-10.1); Carbon Dioxide 26.9 mmol/L (21.0-32.0); Chloride 102 mmol/L (98-107); Estimated GFR (African America 49 (>=60 mL/min/1.73m^2); Estimated GFR (Non-African Ame 40 (>=60 mL/min/1.73m^2); Globulin 3.9 g/dL; Glucose 162 mg/dL (74-106); Magnesium 1.9 mg/dL (1.8-2.4); Potassium 4.4 mmol/L (3.5-5.1); Sodium 139 mmol/L (136-145); Troponin I High Sensitivity 52.9 pg/mL (4.0-76.1)
[2024-12-20] MEDS: APIXABAN 5 MG TABLET PO (08:33)
[2024-12-20] MEDS: METOPROLOL SUCCINATE 50 MG TAB.ER.24H 100 MG PO (08:33)
[2024-12-20] MEDS: POTASSIUM CHLORIDE 10 MEQ ER TABLET 20 MEQ PO (08:33)
[2024-12-20] MEDS: METFORMIN HCL 500 MG TABLET PO (08:34)
[2024-12-20] MEDS: NYSTATIN 100,000 UNITS/GRAM CREAM 15 GM TUBE 1 APPLIC TOPICAL (08:34)
[2024-12-20] MEDS: LISINOPRIL 10 MG TABLET PO (08:34)
[2024-12-20] MEDS: FUROSEMIDE 40 MG TABLET PO (08:34)
[2024-12-20] MEDS: MAGNESIUM OXIDE 400 MG TABLET PO (08:34)
[2024-12-20] MEDS: SITAGLIPTIN PHOSPHATE 50 MG TABLET PO (08:34)
--- NOTE | 2024-12-20 10:15 | CM.NOTE ---
Rounds made with Dr. Sutton, pt will discharge to home today and f/u PCP.
--- NOTE | 2024-12-20 11:13 | SWNOTE1 ---
SW spoke to pt, pt's son, and in room. They are just following up in regards to home health services. FREDI advised we had not heard back from [facility], but SW will call. SW did let them know with physical therapy, there would be a nurse as well added on. They are all in agreement. Pt and stated that the other HH would call and state they would be there in an hour to see them and they wanted a more scheduled time. SW apologized that it happened, and hopeful this HH will be better. FREDI stated someone should call and schedule a time in advance so they know when coming. Pt's son did ask about dimensional engineer apt. Nurse came in room and those apts are scheduled and will be reviewed with nurse with discharge paperwork. At this time pt/family have no other questions. SW called [facility] and they are able to accept and need orders. SW to send final orders over once completed. SW let family know [facility] accepted and nurse will call to schedule time. provided phone number they should call.
--- NOTE | 2024-12-20 11:16 | PT.DAILY ---
Physical Therapy Daily Note PT Daily Note/Assess Start: 12/20/24 11:06 Freq: Status: Active Protocol: Document 12/20/24 10:20 KARRIE (Rec: 12/20/24 11:16 ESHUMARIBEL [id number]) Physical Therapy Daily Note/Assessment Time In/Time Out Time In 10:21 Time Out 10:41 Subjective Subjective Patient reports feeling good today, already feels like he is getting stronger. Therapeutic Exercise Time Therapeutic Exercise 5 Minutes (minutes) Therapeutic Exercise 0 Units Therapeutic Exercise Treatment Therapeutic Exercise Standing Program: Treatment Marches x 5 Alternating SLR x 5 Hip abd x 5 HR x 5 Hamstring curls x 5 Mini squats x 5 Therapeutic Activity Time Therapeutic Activity 15 Minutes (minutes) Therapeutic Activity 1 Units Therapeutic Activity Treatment Chair Transfer Minimum Assist Ability Therapeutic Activity Patient ambulated 75 feet with RW CGA and verbal cues Comments required for walker management 5x sit to sit to stand MIN A with standing exercises completed in between each. Verbal and visual cues given for correct hand placement when sitting for safety. Total Physical Therapy Time Total Therapy 20 Minutes Total Physical 1 Therapy Units Summary Daily Note Summary Patient demonstrates improved ability to ambulate 75 feet with RW MIN A, verbal cues required for walker management to increase safety. Patient completes standing program x 5 reps x6 exercises to increase strength in B LE. Patient reports feeling good throughout treatment and reports feeling stronger in B LE. Patient in chair with all need met and family present post treatment.
--- NOTE | 2024-12-20 11:51 | PM.DS1 ---
DS: Providers Provider Date of admission: 12/18/24 14:56 Primary care physician: Jose D Sutton MD Consults: 12/18/24 14:21 Consult to Pharmacy Routine Consulting Provider: Reason for consultation: Please Brisbin me when Med Rec is Updated Has provider been notified: No Occupational Therapy Eval and Treat Routine Reason for consultation: Only if needed for Rehab Has provider been notified: No Physical Therapy Eval and Treat Routine Reason for consultation: Eval and Treat Has provider been notified: No 12/18/24 14:24 Consult to Cardiology Routine Reason for consultation: A-fib RVR Has provider been notified: No DS: Diagnosis Discharge Diagnosis (1) Acute on chronic heart failure with preserved ejection fraction (HFpEF): (2) Atrial fibrillation with RVR: (3) Pneumonia: (4) Type 2 diabetes mellitus: Qualifiers: Diabetes mellitus intermediate manager insulin use: without intermediate manager use Diabetes mellitus complication status: without complication Qualified Code(s): E11.9 - Type 2 diabetes mellitus without complications (5) HTN (hypertension): Qualifiers: Hypertension type: primary hypertension Qualified Code(s): I10 - Essential (primary) hypertension (6) Hypomagnesemia: (7) Venous stasis dermatitis of both lower extremities: (8) CKD stage 3a, GFR 45-59 ml/min: (9) Obstructive sleep apnea: (10) Obesity: DS: Summary Hospital Course Hospital Course: Reason for admission: See ER note and H&P for details. 83 y/o male to ER with leg swelling. Swelling for several weeks and getting worse. Developed redness to leg and started oral doxy 12/08 for possible cellulitis. Redness now on both legs as swelling worsened. To ER and noted rapid afib. Chest x-ray showed LLL pneumonia and admitted. Hospital course: Started cardizem drip. Started rocephin and zithromax for pneumonia. Echo 11/28 showed EF 55%. Cardiology consulted and felt diastolic HF. Started IV lasix. Able to wean off cardizem and metoprolol increased. Stopped amlodipine due to possible edema side effect. Stopped zithromax and changed to levaquin. Edema unchanged and redness in both legs but did not look like cellulitis. Erythema due to chronic venous stasis dermatitis. Started bumex drip and diuresed well. Edema and erythema improved. Increased metoprolol. Discharged home in stable condition. Stopped amlodipine-benezapril due to possible edema. Started lisinopril. Increased metoprolol to 100 BID. Continue levaquin. Follow up with cardiology in 1-2 weeks. Time Spent with Patient Time attestation: Total time spent providing and/or coordinating discharge services: Time spent: greater than 30 minutes Exam Constitutional Vital Signs, click to edit/add: Last Vital Signs Temp 98 F 12/20/24 07:44 Pulse 98 H 12/20/24 10:00 Resp 16 12/20/24 07:44 BP 99/65 12/20/24 07:44 Pulse Ox 96 12/20/24 09:46 O2 Del Method Room Air 12/20/24 09:46 Documenting provider has reviewed patient's vital signs: yes Common normals: no apparent distress, oriented x3 and alert HENMT Common normals: normocephalic Eye Common normals: PERRL and EOMs intact bilaterally Respiratory Common normals: normal respiratory effort and clear to auscultation bilaterally Cardio Common normals: regular rate, no gallops, no murmurs and no rub Rhythm: abnormal rhythm irregularly irregular GI Common normals: Normal to inspection, nondistended, normoactive bowel sounds present and non-tender Extremity General: edema (2+ bipedal edema) DS: Data Data Completed and Pending Labs on day of discharge: Labs from last 24 hours 12/20/24 12/19/24 12/19/24 04:22 20:29 05:20 WBC 6.7 RBC 4.49 L Hgb 13.2 L Hct 40.2 L MCV 89.5 MCH 29.4 MCHC 32.8 RDW 13.6 Plt Count 299 MPV 10.4 Neut % (Auto) 68.6 Lymph % (Auto) 16.7 L Pepin % (Auto) 11.6 Eos % (Auto) 2.1 Baso % (Auto) 0.9 Neut # (Auto) 4.6 Lymph # (Auto) 1.1 L Pepin # (Auto) 0.8 Eos # (Auto) 0.1 Baso # (Auto) 0.1 Abs Immat Gran (auto) 0.01 Imm/Tot Granulo (auto) 0.1 ESR 14 Sodium 139 Potassium 4.4 Chloride 102 Carbon Dioxide 26.9 Anion Gap 14.5 BUN 29.0 H Creatinine 1.64 H Est GFR ( Amer) 49 L Est GFR (Non-Af Amer) 40 L BUN/Creatinine Ratio 17.7 Glucose 162 H Calcium 9.3 Magnesium 1.9 Total Bilirubin 0.8 AST 19 ALT 14 L Alkaline Phosphatase 88 Troponin I High Sens 52.9 NT-Pro-B Natriuret Pep 3695.0 H* Total Protein 7.0 Albumin 3.1 L Globulin 3.9 Albumin/Globulin Ratio 0.8 POC Glucose 144 H Preliminary micro results at discharge 12/19/24 05:00 Urine Culture - Preliminary Urine,Clean Catch Pending - Specimen sent to [facility] Discharge Plan Discharge Disposition: Home Health Service Condition: Fair Discharge Medications: New lisinopril 10 mg Tablet 10 mg PO DAILY Qty: 30 0RF levofloxacin 750 mg tablet 750 mg PO DAILY 7 Days Qty: 7 0RF metoprolol succinate 100 mg tablet extended release 24 hr 100 mg PO BID Qty: 60 0RF Continued Janumet 50-500 mg tablet 1 tab PO BID atorvastatin 40 mg tablet 40 mg PO DAILY Eliquis 5 mg tablet 5 mg PO BID Qty: 60 0RF furosemide 40 mg tablet 40 mg PO DAILY nystatin 100,000 unit/gram cream 1 applic TOPICAL BID potassium chloride 20 mEq tablet,ER particles/crystals 20 meq PO DAILY Discontinued amlodipine-benazepril 5-10 mg capsule 1 cap PO DAILY metoprolol succinate 50 mg Tablet Extended Release 24 Hr 50 mg PO BID Qty: 60 0RF Activity: ambulate only with your walker Diet: advance to your usual diet Print Language: Hungarian Patient Instructions: Levofloxacin (By mouth), Heart Failure (GEN), Edema (GEN) 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 [facility] nurse will contact to schedule first visit. Phone number is [phone], please contact them with any questions Forms: Portal Instructions Follow Up Appointments: [facility] Cardiology [facility] office. December @ 2:[address] Sanford phone# [phone] Dr Hartman office but will see ABEL Alan December 28, 2024 @ 11:00 phone [phone] Sleep Study December @ 9:00pm [address] [place] [address]. Discharge Date/Time: 12/20/24 11:34
--- NOTE | 2024-12-22 15:22 | CM.NOTE ---
Culture results sent to Dr. Sutton. Currently on Levofloxin po. No changes.
--- NOTE | 2024-12-26 14:38 | CM.DCFOLLOWU ---
2nd attempt 12/26/24, no answer
--- NOTE | 2024-12-27 12:56 | CM.DCFOLLOWU ---
3rd attempt. No answer
== END 2024-12-20 11:34 | disposition home or self-care (01) | DRG 193 ==
LOC: ER 13:22 → ICU 15:31
PROVIDERS: Family Medicine; Admitting Provider Family Medicine; Emergency Provider Emergency Medicine; PCP Family Medicine; Visit Provider Family Medicine
DX: J18.9 Pneumonia, unspecified organism (principal); I50.33 Acute on chronic diastolic (congestive) heart failure; I13.0 Hypertensive heart and chronic kidney disease with heart failure and stage 1 through stage 4 chronic kidney disease, or unspecified chronic kidney disease; N18.31 Chronic kidney disease, stage 3a; E11.22 Type 2 diabetes mellitus with diabetic chronic kidney disease; E83.42 Hypomagnesemia; I87.2 Venous insufficiency (chronic) (peripheral); G47.33 Obstructive sleep apnea (adult) (pediatric); E66.9 Obesity, unspecified; Z68.33 Body mass index [BMI] 33.0-33.9, adult; Z79.899 Other long term (current) drug therapy; Z79.84 Long term (current) use of oral hypoglycemic drugs; E78.5 Hyperlipidemia, unspecified; Z85.038 Personal history of other malignant neoplasm of large intestine; Z79.01 Long term (current) use of anticoagulants
CPT/HCPCS: 36415; 71045; 71275; 80048; 80053; 81001; 82948; 83605; 83735; 83880; 84484; 85025; 85652; 86140; 87040; 87070; 87086; 87205; 93005; 93308; 94667; 94761; 96365; 96366; 96368; 96376; 97161; 97165; 97530; 99285; J0456; J0696; J3475; Q9967

== ENCOUNTER 2024-12-28 12:52 | Outpatient (OUT) | payer MEDICARE, OTHER, SELFPAY ==
[2024-12-28 13:28] LABS: Anion Gap 12.8; BUN Creatinine Ratio 16.8; Calcium 9.1 mg/dL (8.5-10.1); Carbon Dioxide 28.5 mmol/L (21.0-32.0); Chloride 103 mmol/L (98-107); Estimated GFR (African America 46 (>=60 mL/min/1.73m^2); Estimated GFR (Non-African Ame 38 (>=60 mL/min/1.73m^2); Glucose 157 mg/dL (74-106); Potassium 4.3 mmol/L (3.5-5.1); Sodium 140 mmol/L (136-145)
== END 2024-12-28 12:53 | disposition home or self-care (01) ==
LOC: LAB 12:57
PROVIDERS: PCP Family Medicine; Visit Provider Nurse Practitioner
DX: I10 Essential (primary) hypertension (principal)
CPT/HCPCS: 36415; 80048

== ENCOUNTER 2025-01-01 15:41 | Outpatient (OUT) | payer MEDICARE, OTHER, SELFPAY ==
--- NOTE | 2025-01-01 15:48 | XR_ITS ---
The [address] [address] Patient Name: ISAMAR MACHUCA MRN: [id number] date: 1940 Sex: M Assigned Patient Location: [facility] Current Patient Location: [facility] Accession/Order Number: [id number] Exam Date: 01/01/2025 17:04 Report Date: 01/01/2025 17:05 At the request of: BOBY ROBLES NP Procedure: XR ribs LT min 3V w CXR1V Left Rib series with Single View Chest HISTORY: Fell. Left rib pain COMPARISON: 12/18/2024 MEDIASTINUM: Cardiac, mediastinal hilar silhouettes are within normal limits. LUNGS AND PLEURA: No acute lung process, pleural effusion or pneumothorax identified. Minor basilar atelectasis/scarring ACUTE FINDINGS: No displaced rib fracture identified. DEGENERATIVE CHANGE: L5 thoracic spine degeneration SOFT TISSUE: Unremarkable POSTOP CHANGES: None XR/XR ribs LT min 3V w CXR1V IMPRESSION: No displaced rib fracture. No acute chest findings. Impression dictated by: Antonio Dietz M.D.01/01/2025 5:05 PM Dictation Location: [employer] Electronically authenticated by: [id number] Y Date: 01/01/2025 17:05
== END 2025-01-01 15:42 | disposition home or self-care (01) ==
LOC: RAD 15:42
PROVIDERS: PCP Family Medicine; Visit Provider Nurse Practitioner
DX: R07.81 Pleurodynia (principal)
CPT/HCPCS: 71101

== ENCOUNTER 2025-01-10 13:41 | Outpatient (OUT) | payer MEDICARE, OTHER, SELFPAY ==
[2025-01-10 14:49] LABS: Anion Gap 12.3; BUN Creatinine Ratio 16.3; Calcium 9.2 mg/dL (8.5-10.1); Carbon Dioxide 26.7 mmol/L (21.0-32.0); Chloride 100 mmol/L (98-107); Estimated GFR (African America 58 (>=60 mL/min/1.73m^2); Estimated GFR (Non-African Ame 48 (>=60 mL/min/1.73m^2); Glucose 183 mg/dL (74-106); Sodium 134 mmol/L (136-145)
== END 2025-01-10 13:42 | disposition home or self-care (01) ==
LOC: LAB 13:47
PROVIDERS: PCP Family Medicine; Visit Provider Nurse Practitioner
DX: I50.32 Chronic diastolic (congestive) heart failure (principal); N18.32 Chronic kidney disease, stage 3b
CPT/HCPCS: 36415; 80048